=== PATIENT | male | born 1960 | race Caucasian/White ===

== ENCOUNTER 2018-09-09 23:05 | Inpatient (IN) | payer SELFPAY ==
[~2018-09-09] VITALS: Ht 180.3 cm; Wt 71.2 kg
[2018-09-09 23:30] LABS: BASO % 0 % (0-3); EOS % 0 % (0-3); HEMATOCRIT 22.7 % (39.0-53.0); HEMOGLOBIN 7.5 g/dL (13.0-17.5); LYMPH # 0.5 x10^3/uL (1.0-4.8); LYMPH % 5 % (24-48); MEAN CORPUSCULAR HEMOGLOBIN 29 pg (25-35); MEAN CORPUSCULAR HGB CONC 33 g/dL (31-37); MEAN CORPUSCULAR VOLUME 88 fL (79-100); MONO # 1.1 x10^3/uL (0.0-1.1); MONO % 12 % (0-9); NEUT % 83 % (31-73); PLATELET COUNT 115 x10^3/uL (140-400); RED BLOOD COUNT 2.59 x10^6/uL (4.30-5.70); RED CELL DISTRIBUTION WIDTH 17.8 % (11.5-14.5); WHITE BLOOD COUNT 9.6 x10^3/uL (4.0-11.0)
[2018-09-09 23:39] LABS: PROTHROMBIN TIME PATIENT 16.8 SEC (11.7-14.0)
[2018-09-09 23:43] LABS: CALCIUM 8.2 mg/dL (8.5-10.1); CREATININE 1.5 mg/dL (0.7-1.3); GFR 48.4; POTASSIUM 4.5 mmol/L (3.5-5.1)
[2018-09-09] MEDS ORDERED: CONTRAST GIVEN. MC PRN (23:45)
[2018-09-09 23:47] LABS: ALBUMIN 2.3 g/dL (3.4-5.0); ALBUMIN/GLOBULIN RATIO 0.5 (1.0-1.7); TOTAL BILIRUBIN 2.7 mg/dL (0.2-1.0); TOTAL PROTEIN 6.5 g/dL (6.4-8.2)
[2018-09-10] VITALS (22 sets, daily range): BP systolic 88–129; BP diastolic 57–85
[2018-09-10] MEDS ORDERED: PANTOPRAZOLE IV PUSH 40 MG VIAL. IVP ONE
[2018-09-10] MEDS ORDERED: OCTREOTIDE 500 MCG in IV NORMAL SALINE 100ML 100 ML IV PRN ×2
[2018-09-10] MEDS ORDERED: ONDANSETRON PF 4 MG/2 ML VIAL. IM ONE
[2018-09-10] MEDS ORDERED: MORPHINE SULFATE 4 MG/ML VIAL. IV ONE
[2018-09-10] MEDS ORDERED: ONDANSETRON PF 4 MG/2 ML VIAL. IV PRN ×2 (00:15→13:30)
[2018-09-10] MEDS ORDERED: FUROSEMIDE 20 MG/2 ML VIAL. IVP PRN (00:30)
[2018-09-10] MEDS ORDERED: IV NORMAL SALINE 1000ML BAG 1,000 ML IV ONE (00:30)
[2018-09-10] MEDS ORDERED: IOHEXOL 300 MG/ML 100ML VIAL. IV ONE (00:30)
--- NOTE | 2018-09-10 00:30 | PHYS DOC ---
Past Medical History Past Medical History: Gallstones, Hepatitis, Other Additional Past Medical Histor: Esophageal Varicies, Cirrohsis, Hep. C Past Surgical History: Appendectomy, Other Additional Past Surgical Histo: Left Knee, L4-L5 surgery, Paracentesis approx. every 3mo Alcohol Use: Sober Drug Use: None Adult General Chief Complaint Chief Complaint: ABDOMINAL PAIN HPI HPI Patient is a 58 year old male with history of cirrhosis, hepatitis C, ascites with esophageal varices who presents with upper GI bleed. Patient reports coffee-ground emesis multiple episodes throughout the day. Reports abdominal pain prior to and following vomiting episodes. Reports dizziness lightheadedness and shortness of breath. No chest pain. Reports black stools intermittent for the past 24-48 hours. Patient has prior history of soft jovial varices.. He receives his GI Care per Dr. Weston at [facility]. Patient arrives by EMS. Initial heart rate is 140s, with stable blood pressure. [] Review of Systems Review of Systems Review symptoms as per history of present illness. All other review symptoms are negative. All other systems were reviewed and found to be within normal limits, except as documented in this note. Current Medications Current Medications Current Medications Medications (Trade) Dose Ordered Sig/Sol Start Time Stop Time Status Last Admin Dose Admin Info (CONTRAST GIVEN -- Rx MONITORING) 1 each PRN DAILY PRN 09/09/18 23:45 09/11/18 23:44 Morphine Sulfate (Morphine Sulfate) 4 mg 1X ONCE 09/10/18 00:00 09/10/18 00:01 DC 09/09/18 23:53 4 MG Octreotide Acetate 500 mcg/ Sodium Chloride 101 ml @ 0 mls/hr CONT PRN 09/10/18 00:00 Ondansetron HCl (Zofran) 4 mg 1X ONCE 09/10/18 00:00 09/10/18 00:01 DC 09/09/18 23:53 4 MG Pantoprazole Sodium (PROTONIX VIAL for IV PUSH) 80 mg 1X ONCE 09/10/18 00:00 09/10/18 00:01 DC 09/09/18 23:53 80 MG Pantoprazole Sodium 80 mg/ Sodium Chloride 100 ml @ 10 mls/hr Q10H 09/10/18 00:00 09/11/18 00:00 Allergies Allergies Allergies Coded Allergies Type Severity Reaction Last Updated Verified No Known Drug Allergies 09/09/18 No Physical Exam Physical Exam Constitutional: Well developed, well nourished, no acute distress, non-toxic appearance. [] HENT: Normocephalic, atraumatic, bilateral external ears normal, oropharynx moist nose normal. [] Eyes: PERRLA, EOMI, conjunctiva normal, no discharge. [] Neck: Normal range of motion, no tenderness, supple, no stridor. [] Cardiovascular: Tachycardic, regular rhythm[] Lungs & Thorax: Bilateral breath sounds clear to auscultation [] Abdomen: Bowel sounds normal, ascites, mild diffuse epigastric pain, tenderness. [] Skin: Warm, dry, no erythema, no rash. [] Back: No tenderness, no CVA tenderness. [] Extremities: No tenderness peripheral edema. [] Neurologic: Alert and oriented X 3, normal motor function, normal sensory function, no focal deficits noted. [] Psychologic: Affect normal, judgement normal, mood normal. [] Current Patient Data Vital Signs Vital Signs Date Time Temp Pulse Resp B/P (MAP) Pulse Ox O2 Delivery O2 Flow Rate FiO2 09/09/18 23:45 129 112/77 (89) 98 Room Air 09/09/18 23:05 99.3 14 99.3 Lab Values Laboratory Tests Test 09/09/18 23:20 White Blood Count 9.6 x10^3/uL (4.0-11.0) Red Blood Count 2.59 x10^6/uL (4.30-5.70) L Hemoglobin 7.5 g/dL (13.0-17.5) L Hematocrit 22.7 % (39.0-53.0) L Mean Corpuscular Volume 88 fL (79-100) Mean Corpuscular Hemoglobin 29 pg (25-35) Mean Corpuscular Hemoglobin Concent 33 g/dL (31-37) Red Cell Distribution Width 17.8 % (11.5-14.5) H Platelet Count 115 x10^3/uL (140-400) L Neutrophils (%) (Auto) 83 % (31-73) H Lymphocytes (%) (Auto) 5 % (24-48) L Monocytes (%) (Auto) 12 % (0-9) H Eosinophils (%) (Auto) 0 % (0-3) Basophils (%) (Auto) 0 % (0-3) Neutrophils # (Auto) 8.0 x10^3uL (1.8-7.7) H Lymphocytes # (Auto) 0.5 x10^3/uL (1.0-4.8) L Monocytes # (Auto) 1.1 x10^3/uL (0.0-1.1) Eosinophils # (Auto) 0.0 x10^3/uL (0.0-0.7) Basophils # (Auto) 0.0 x10^3/uL (0.0-0.2) Prothrombin Time 16.8 SEC (11.7-14.0) H Prothrombin Time INR 1.4 (0.8-1.1) H PTT 32 SEC (24-38) Sodium Level 137 mmol/L (136-145) Potassium Level 4.5 mmol/L (3.5-5.1) Chloride Level 98 mmol/L (98-107) Carbon Dioxide Level 21 mmol/L (21-32) Anion Gap 18 (6-14) H Blood Urea Nitrogen 23 mg/dL (8-26) Creatinine 1.5 mg/dL (0.7-1.3) H Estimated GFR (Cockcroft-Gault) 48.4 BUN/Creatinine Ratio 15 (6-20) Glucose Level 123 mg/dL (70-99) H Calcium Level 8.2 mg/dL (8.5-10.1) L Total Bilirubin 2.7 mg/dL (0.2-1.0) H Aspartate Amino Transferase (AST) 48 U/L (15-37) H Alanine Aminotransferase (ALT) 18 U/L (16-63) Alkaline Phosphatase 74 U/L (46-116) Total Protein 6.5 g/dL (6.4-8.2) Albumin 2.3 g/dL (3.4-5.0) L Albumin/Globulin Ratio 0.5 (1.0-1.7) L Lipase 201 U/L (73-393) Ethyl Alcohol Level < 10 mg/dL (0-10) Laboratory Tests 09/09/18 23:20 Laboratory Tests 09/09/18 23:20 EKG EKG [EKG: His tach, rate 139, no acute ST-T wave changes, low voltage pattern and nonspecific T-wave abnormalities, QTC 440.] Radiology/Procedures Radiology/Procedures [CT abd/pelvis: pending] Course & Med Decision Making Course & Med Decision Making Pertinent Labs and Imaging studies reviewed. (See chart for details) [IV Protonix, simvastatin, pain medication and antiemetics ordered. Hemoglobin 7.5, platelets 1:15. Patient remains tachycardic. Type and cross with orders for transfusion of 2 packed units of red blood cells. Dr. Ambriz educational sign language interpreter for GI consulted. Recommendations are for ICU admission, nothing by mouth with anticipated endoscopy early tomorrow morning. notified of admission. Courtesy admission orders written] Dwayne Disclaimer Dragon Disclaimer This electronic medical record was generated, in whole or in part, using a voice recognition dictation system. Departure Departure Impression: Primary Impression: Upper GI bleed Disposition: ADMITTED INPATIENT Condition: CRITICAL Referrals: LUCILA MCCLURE JR, MD (PCP) UMU VARGAS DO September 10, 2018 00:30
[2018-09-10] MEDS: PANTOPRAZOLE SODIUM IV DRIP 80 MG in IV NORMAL SALINE 100ML 100 ML IV SCH ×2 (00:34→10:42)
[2018-09-10] MEDS: IV NORMAL SALINE 1000ML BAG 1,000 ML IV SCH ×2 (00:39→14:07)
[2018-09-10] MEDS: MORPHINE SULFATE 2 MG/ML VIAL. IV PRN ×9 (01:01→22:42)
--- NOTE | 2018-09-10 01:03 | RAD ---
PQRS Compliance Statement: One or more of the following individualized dose reduction techniques were utilized for this examination: 1. Automated exposure control 2. Adjustment of the mA and/or kV according to patient size 3. Use of iterative reconstruction technique CT ABD PELV W/ IV CONTRST ONLY Clinical Indication: Upper abdominal pain, nausea and vomiting. Comparison: None. Technique: Helical CT imaging of the abdomen and pelvis is performed after 60 cc of Omnipaque 300 IV contrast. Oral contrast not given. Findings: Calcified granuloma right middle lobe. There is atelectasis in the right lower lobe. There is coronary artery disease. Cardiac size normal. Cirrhosis. Recanalized paraumbilical vein. Portal vein is patent. Spleen size is normal. There are 2 upper limits of normal size dionne hepatis lymph nodes, coronal image 27. Lymph nodes may be secondary to liver disease. Cholelithiasis. Pancreas, abdominal aorta caliber, adrenal glands, and kidneys are normal. Atherosclerotic calcification of the infrarenal abdominal aorta. There is mild diffuse gastric wall thickening. Stomach mildly distended with fluid. There is dependent hyperdensity in the gastric fundus, correlate to recent ingestions. There is wall thickening of the gastric fundus and proximal duodenum. There is no perforation. There is moderate abdominal and pelvic ascites. No dilated small bowel. There is mild wall thickening of segments of small bowel. Distal colon is not well distended, limiting evaluation. Cannot exclude mild wall thickening of the transverse and descending colon. Appendix not seen, no secondary signs of appendicitis. Urinary bladder is not well distended, limiting evaluation. Coarse calcification in the prostate.Vasectomy clips. Mild compression deformity superior endplate of T6 does not appear acute. Schmorl's node superior endplates of L4 and T11. IMPRESSION: 1. Wall thickening of the gastric fundus and proximal duodenum. There is mild diffuse gastric wall thickening. Mild wall thickening of segments of small bowel. Findings suggest nonspecific gastroenteritis. 2. Mild wall thickening of the transverse and descending colon suggestive of nonspecific colitis, probably infectious or inflammatory bowel disease. 3. Moderate abdominal and pelvic ascites. 4. Cirrhosis. 5. Cholelithiasis. Electronically signed by: Leonel Monet MD (09/10/2018 1:00 AM) [id number]
[2018-09-10] MEDS ORDERED: METOCLOPRAMIDE HCL 10 MG/2 ML VIAL. IV STA (07:02)
[2018-09-10 07:05] LABS: BILIRUBIN,URINE SMALL (NEG); CLARITY,URINE CLEAR; COLOR,URINE ORANGE; NITRITE,URINE NEGATIVE (NEG); PH,URINE 5.5; PROTEIN,URINE NEGATIVE (NEG-TRACE)
[2018-09-10 07:18] LABS: BACTERIA,URINE 0 /HPF (0-FEW); RBC,URINE 0 /HPF (0-2); SQUAMOUS EPITHELIAL CELL,UR FEW /LPF; WBC,URINE OCC /HPF (0-4)
[2018-09-10] MEDS ORDERED: IV RINGERS,LACTATED 1000ML 1,000 ML IV SCH (09:00)
[2018-09-10] MEDS ORDERED: PROPOFOL 20 ML IV ONE (09:39)
[2018-09-10 10:01] LABS: CALCIUM 7.5 mg/dL (8.5-10.1); CREATININE 1.2 mg/dL (0.7-1.3); GFR 62.6; POTASSIUM 4.8 mmol/L (3.5-5.1)
--- NOTE | 2018-09-10 10:01 | PDOC2 ---
CONSULT Date of Consult Date of Consult DATE: 09/10/18 TIME: 09:56 Reason for Consult Reason for Consult: coffee ground emesis, cirrhosis History of Present Illness Reason for Visit: This is a 58-year-old male with a history of cirrhosis secondary to long- standing alcohol abuse and hepatitis C. He relates his last alcohol ingestion was May 2017. He is primarily managed at [facility] and has a history of portal hypertension with ascites and several episodes in the past of coffee-ground emesis. Previous endoscopies according to the patient revealed nonbleeding small varices and gastritis. He has been managed with Protonix and Carafate. His chronic ascites is managed with diuretics and intermittent paracentesis. He relates his last paracentesis was June. He has chronic abdominal discomfort and early satiety which have not changed. He presents now with a complaint of nausea followed by coffee-ground emesis and even some red blood. His abdominal discomfort and early satiety have not changed. He denies chronic melena but did have 1 melenic stool daily. His peripheral edema has been managed with diuretics and his abdominal distention is stable per his history. He states that he has seen the liver clinic at [facility] and is awaiting insurance before considering liver transplant and treatment of his hepatitis C Past Medical History Hepatobiliary: Cirrhosis, Hep A/B/C (hepatitis C) Social History ALCOHOL: other (samueloir alcohol abuse- stopped last year) Current Medications Current Medications Current Medications Ondansetron HCl (Zofran) 4 mg 1X ONCE IM Last administered on 09/09/18at 23:53; Start 09/10/18 at 00:00; Stop 09/10/18 at 00:01; Status DC Octreotide Acetate 500 mcg/ Sodium Chloride 101 ml @ 0 mls/hr CONT PRN IV SEE I/O RECORD Last administered on 09/10/18at 00:38; Start 09/10/18 at 00:00 Morphine Sulfate (Morphine Sulfate) 4 mg 1X ONCE IV Last administered on 09/09/18at 23:53; Start 09/10/18 at 00:00; Stop 09/10/18 at 00:01; Status DC Pantoprazole Sodium 80 mg/ Sodium Chloride 100 ml @ 10 mls/hr Q10H IV Last administered on 09/10/18at 00:34; Start 09/10/18 at 00:00; Stop 09/11/18 at 00:00 Pantoprazole Sodium (PROTONIX VIAL for IV PUSH) 80 mg 1X ONCE IVP Last administered on 09/09/18at 23:53; Start 09/10/18 at 00:00; Stop 09/10/18 at 00:01; Status DC Iohexol (Omnipaque 300 Mg/ml) 60 ml 1X ONCE IV Last administered on 09/10/18at 00:20; Start 09/10/18 at 00:30; Stop 09/10/18 at 00:31; Status DC Info (CONTRAST GIVEN -- Rx MONITORING) 1 each PRN DAILY PRN MC SEE COMMENTS; Start 09/09/18 at 23:45; Stop 09/11/18 at 23:44 Ondansetron HCl (Zofran) 4 mg PRN Q8HRS PRN IV NAUSEA/VOMITING 1ST CHOICE Last administered on 09/10/18at 08:03; Start 09/10/18 at 00:15; Stop 09/11/18 at 00:14 Morphine Sulfate (Morphine Sulfate) 2 mg PRN Q2HR PRN IV SEVERE PAIN Last administered on 09/10/18at 08:04; Start 09/10/18 at 00:15; Stop 09/11/18 at 00:14 Sodium Chloride 1,000 ml @ 75 mls/hr [id number] IV Last administered on 09/10/18at 00:39; Start 09/10/18 at 00:13; Stop 09/11/18 at 00:12 Furosemide (Lasix) 20 mg 1X PRN PRN IVP AFTER BLOOD Last administered on 09/10/18at 06:08; Start 09/10/18 at 00:30; Stop 09/11/18 at 00:29 Sodium Chloride 1,000 ml @ 1,000 mls/hr 1X ONCE IV Last administered on 09/09/18at 23:58; Start 09/10/18 at 00:30; Stop 09/10/18 at 01:29; Status DC Metoclopramide HCl (Reglan Vial) 10 mg 1X STAT IV Last administered on 09/10/18at 08:03; Start 09/10/18 at 07:02; Stop 09/10/18 at 07:11; Status DC Ringer's Solution 1,000 ml @ 50 mls/hr Q20H IV ; Start 09/10/18 at 09:00; Stop 09/10/18 at 19:00 Propofol 60 ml @ As Directed STK-MED ONCE IV ; Start 09/10/18 at 09:39; Stop 09/10/18 at 09:40; Status DC Allergies Allergies: Coded Allergies: No Known Drug Allergies (Unverified , 09/10/18) ROS Gastrointestinal: Yes Nausea, Yes Vomiting, Yes Abdominal Pain Physical Exam General: Alert, Oriented X3, Cooperative HEENT: PERRLA Lungs: Clear to auscultation Heart: Regular rate, Normal S1, Normal S2 Abdomen: Normal bowel sounds, Other (moderate distension with ascites; also mild diffuse tenderness) Vitals VITALS Vital Signs Date Time Temp Pulse Resp B/P (MAP) Pulse Ox O2 Delivery O2 Flow Rate FiO2 09/10/18 09:53 Room Air 09/10/18 09:00 88 18 110/77 (88) 09/10/18 08:44 98 09/10/18 07:00 98.7 98.7 Labs Labs Laboratory Tests Test 09/09/18 23:20 09/10/18 06:30 White Blood Count 9.6 x10^3/uL (4.0-11.0) Red Blood Count 2.59 x10^6/uL (4.30-5.70) Hemoglobin 7.5 g/dL (13.0-17.5) Hematocrit 22.7 % (39.0-53.0) Mean Corpuscular Volume 88 fL (79-100) Mean Corpuscular Hemoglobin 29 pg (25-35) Mean Corpuscular Hemoglobin Concent 33 g/dL (31-37) Red Cell Distribution Width 17.8 % (11.5-14.5) Platelet Count 115 x10^3/uL (140-400) Neutrophils (%) (Auto) 83 % (31-73) Lymphocytes (%) (Auto) 5 % (24-48) Monocytes (%) (Auto) 12 % (0-9) Eosinophils (%) (Auto) 0 % (0-3) Basophils (%) (Auto) 0 % (0-3) Neutrophils # (Auto) 8.0 x10^3uL (1.8-7.7) Lymphocytes # (Auto) 0.5 x10^3/uL (1.0-4.8) Monocytes # (Auto) 1.1 x10^3/uL (0.0-1.1) Eosinophils # (Auto) 0.0 x10^3/uL (0.0-0.7) Basophils # (Auto) 0.0 x10^3/uL (0.0-0.2) Prothrombin Time 16.8 SEC (11.7-14.0) Prothromb Time International Ratio 1.4 (0.8-1.1) Activated Partial Thromboplast Time 32 SEC (24-38) Sodium Level 137 mmol/L (136-145) Potassium Level 4.5 mmol/L (3.5-5.1) Chloride Level 98 mmol/L (98-107) Carbon Dioxide Level 21 mmol/L (21-32) Anion Gap 18 (6-14) Blood Urea Nitrogen 23 mg/dL (8-26) Creatinine 1.5 mg/dL (0.7-1.3) Estimated GFR (Cockcroft-Gault) 48.4 BUN/Creatinine Ratio 15 (6-20) Glucose Level 123 mg/dL (70-99) Calcium Level 8.2 mg/dL (8.5-10.1) Total Bilirubin 2.7 mg/dL (0.2-1.0) Aspartate Amino Transf (AST/SGOT) 48 U/L (15-37) Alanine Aminotransferase (ALT/SGPT) 18 U/L (16-63) Alkaline Phosphatase 74 U/L (46-116) Total Protein 6.5 g/dL (6.4-8.2) Albumin 2.3 g/dL (3.4-5.0) Albumin/Globulin Ratio 0.5 (1.0-1.7) Lipase 201 U/L (73-393) Ethyl Alcohol Level < 10 mg/dL (0-10) Urine Collection Type Void Urine Color [place] Urine Clarity Clear Urine pH 5.5 Urine Specific [place] >=1.030 Urine Protein Negative mg/dL (NEG-TRACE) Urine Glucose (UA) Negative mg/dL (NEG) Urine Ketones (Stick) Trace mg/dL (NEG) Urine Blood Negative (NEG) Urine Nitrite Negative (NEG) Urine Bilirubin Small (NEG) Urine Urobilinogen Dipstick 1.0 mg/dL (0.2 mg/dL) Urine Leukocyte Esterase Negative (NEG) Urine RBC 0 /HPF (0-2) Urine WBC Occ /HPF (0-4) Urine Squamous Epithelial Cells Few /LPF Urine Bacteria 0 /HPF (0-FEW) Laboratory Tests Test 09/09/18 23:20 09/10/18 06:30 White Blood Count 9.6 x10^3/uL (4.0-11.0) Red Blood Count 2.59 x10^6/uL (4.30-5.70) Hemoglobin 7.5 g/dL (13.0-17.5) Hematocrit 22.7 % (39.0-53.0) Mean Corpuscular Volume 88 fL (79-100) Mean Corpuscular Hemoglobin 29 pg (25-35) Mean Corpuscular Hemoglobin Concent 33 g/dL (31-37) Red Cell Distribution Width 17.8 % (11.5-14.5) Platelet Count 115 x10^3/uL (140-400) Neutrophils (%) (Auto) 83 % (31-73) Lymphocytes (%) (Auto) 5 % (24-48) Monocytes (%) (Auto) 12 % (0-9) Eosinophils (%) (Auto) 0 % (0-3) Basophils (%) (Auto) 0 % (0-3) Neutrophils # (Auto) 8.0 x10^3uL (1.8-7.7) Lymphocytes # (Auto) 0.5 x10^3/uL (1.0-4.8) Monocytes # (Auto) 1.1 x10^3/uL (0.0-1.1) Eosinophils # (Auto) 0.0 x10^3/uL (0.0-0.7) Basophils # (Auto) 0.0 x10^3/uL (0.0-0.2) Prothrombin Time 16.8 SEC (11.7-14.0) Prothromb Time International Ratio 1.4 (0.8-1.1) Activated Partial Thromboplast Time 32 SEC (24-38) Sodium Level 137 mmol/L (136-145) Potassium Level 4.5 mmol/L (3.5-5.1) Chloride Level 98 mmol/L (98-107) Carbon Dioxide Level 21 mmol/L (21-32) Anion Gap 18 (6-14) Blood Urea Nitrogen 23 mg/dL (8-26) Creatinine 1.5 mg/dL (0.7-1.3) Estimated GFR (Cockcroft-Gault) 48.4 BUN/Creatinine Ratio 15 (6-20) Glucose Level 123 mg/dL (70-99) Calcium Level 8.2 mg/dL (8.5-10.1) Total Bilirubin 2.7 mg/dL (0.2-1.0) Aspartate Amino Transf (AST/SGOT) 48 U/L (15-37) Alanine Aminotransferase (ALT/SGPT) 18 U/L (16-63) Alkaline Phosphatase 74 U/L (46-116) Total Protein 6.5 g/dL (6.4-8.2) Albumin 2.3 g/dL (3.4-5.0) Albumin/Globulin Ratio 0.5 (1.0-1.7) Lipase 201 U/L (73-393) Ethyl Alcohol Level < 10 mg/dL (0-10) Urine Collection Type Void Urine Color [place] Urine Clarity Clear Urine pH 5.5 Urine Specific [place] >=1.030 Urine Protein Negative mg/dL (NEG-TRACE) Urine Glucose (UA) Negative mg/dL (NEG) Urine Ketones (Stick) Trace mg/dL (NEG) Urine Blood Negative (NEG) Urine Nitrite Negative (NEG) Urine Bilirubin Small (NEG) Urine Urobilinogen Dipstick 1.0 mg/dL (0.2 mg/dL) Urine Leukocyte Esterase Negative (NEG) Urine RBC 0 /HPF (0-2) Urine WBC Occ /HPF (0-4) Urine Squamous Epithelial Cells Few /LPF Urine Bacteria 0 /HPF (0-FEW) Images Images CT IMPRESSION: 1. Wall thickening of the gastric fundus and proximal duodenum. There is mild diffuse gastric wall thickening. Mild wall thickening of segments of small bowel. Findings suggest nonspecific gastroenteritis. 2. Mild wall thickening of the transverse and descending colon suggestive of nonspecific colitis, probably infectious or inflammatory bowel disease. 3. Moderate abdominal and pelvic ascites. 4. Cirrhosis. 5. Cholelithiasis. Assessment/Plan Assessment/Plan Vomiting and coffee-ground emesis. Prior history of cirrhosis with reportedly small nonbleeding varices but chronic gastritis noted. Presents now with coffee- ground emesis and some red blood and a blood loss related anemia. Cirrhosis secondary to chronic alcohol abuse and hepatitis C. He relates seeing liver clinic and is awaiting insurance before treating hepatitis C and c onsidering liver transplant ascites- moderate on CT but clinically stable Plan #1 empirically continue IV Protonix and octreotide. Transfuse to hemoglobin greater than 8 Urgent EGD today to evaluate source for bleeding. Recommend early return to his primary physicians and the liver clinic to discuss ongoing treatment ZAHRA SANDERS MD September 10, 2018 10:01
[2018-09-10 10:03] LABS: BASO % 0 % (0-3); EOS % 0 % (0-3); HEMATOCRIT 25.2 % (39.0-53.0); HEMOGLOBIN 8.3 g/dL (13.0-17.5); LYMPH # 0.6 x10^3/uL (1.0-4.8); LYMPH % 11 % (24-48); MEAN CORPUSCULAR HEMOGLOBIN 29 pg (25-35); MEAN CORPUSCULAR HGB CONC 33 g/dL (31-37); MEAN CORPUSCULAR VOLUME 88 fL (79-100); MONO # 0.9 x10^3/uL (0.0-1.1); MONO % 16 % (0-9); NEUT # 4.1 x10^3uL (1.8-7.7); NEUT % 73 % (31-73); PLATELET COUNT 53 x10^3/uL (140-400); RED BLOOD COUNT 2.88 x10^6/uL (4.30-5.70); RED CELL DISTRIBUTION WIDTH 17.9 % (11.5-14.5); WHITE BLOOD COUNT 5.7 x10^3/uL (4.0-11.0)
--- NOTE | 2018-09-10 10:04 | PDOC4 ---
PROCEDURE Procedure EGD for hematemesis Anesthesia- propofol Findings- grade 1-2 NON bleeding distal esophageal varices; portal gastropathy without bleeding- mild NO varices- gastric ulcers in pre-pyloric region- no bl eeding but some old melena in stomach; duodenum- inflammation but no ulcers or varices Plan- PPI and carafate stop octreotide f/u with PCP and liver clinic ZAHRA SANDERS MD September 10, 2018 10:04
[2018-09-10] MEDS: SUCRALFATE 1 GM TABLET. PO SCH ×2 (10:37→22:42)
--- NOTE | 2018-09-10 13:15 | PDOC1 ---
History and Physical Date of Admission: Date of Admission DATE: 09/10/18 TIME: 13:12 Chief Complaint: Problems: (1) Gastritis (2) Upper GI bleed Chief Complain: Hematemesis History of Present Illness: HPI: This is a elderly male who used to drink heavily He has known cirrhosis and actually his INR is even higher at 1.4 Presented last night with GI bleeding with hematemesis He was taken for emergent EGD which showed distal esophageal varices that were not actively bleeding He is now in the ICU where he is being examined Rates his symptoms at 10 out of 10 although the bleeding has now stopped He tried taking home meds but I didn't help Describes as agonizing Worse with eating Past Medical/Surgical History: PMH/PSH: Previous GI bleeds Prior alcoholism although he apparently has quit drinking Cirrhosis Coagulopathy Hypertension Noncompliance Allergies: Allergies: Coded Allergies: No Known Drug Allergies (Unverified , 09/10/18) Family History: Family History: Alcoholism Social History: Social Hisoty: He quit drinking but used to drink heavily 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 Current Medications: Current Medications Current Medications Ondansetron HCl (Zofran) 4 mg 1X ONCE IM Last administered on 09/09/18at 23:53; Start 09/10/18 at 00:00; Stop 09/10/18 at 00:01; Status DC Octreotide Acetate 500 mcg/ Sodium Chloride 101 ml @ 0 mls/hr CONT PRN IV SEE I/O RECORD Last administered on 09/10/18at 00:38; Start 09/10/18 at 00:00; Stop 09/10/18 at 10:06; Status DC Morphine Sulfate (Morphine Sulfate) 4 mg 1X ONCE IV Last administered on 09/09/18at 23:53; Start 09/10/18 at 00:00; Stop 09/10/18 at 00:01; Status DC Pantoprazole Sodium 80 mg/ Sodium Chloride 100 ml @ 10 mls/hr Q10H IV Last administered on 09/10/18at 10:42; Start 09/10/18 at 00:00; Stop 09/11/18 at 00:00 Pantoprazole Sodium (PROTONIX VIAL for IV PUSH) 80 mg 1X ONCE IVP Last administered on 09/09/18at 23:53; Start 09/10/18 at 00:00; Stop 09/10/18 at 00:01; Status DC Iohexol (Omnipaque 300 Mg/ml) 60 ml 1X ONCE IV Last administered on 09/10/18at 00:20; Start 09/10/18 at 00:30; Stop 09/10/18 at 00:31; Status DC Info (CONTRAST GIVEN -- Rx MONITORING) 1 each PRN DAILY PRN MC SEE COMMENTS; Start 09/09/18 at 23:45; Stop 09/11/18 at 23:44 Ondansetron HCl (Zofran) 4 mg PRN Q8HRS PRN IV NAUSEA/VOMITING 1ST CHOICE Last administered on 09/10/18at 08:03; Start 09/10/18 at 00:15; Stop 09/11/18 at 00:14 Morphine Sulfate (Morphine Sulfate) 2 mg PRN Q2HR PRN IV SEVERE PAIN Last administered on 09/10/18at 10:37; Start 09/10/18 at 00:15; Stop 09/11/18 at 00:14 Sodium Chloride 1,000 ml @ 75 mls/hr [id number] IV Last administered on 09/10/18at 00:39; Start 09/10/18 at 00:13; Stop 09/11/18 at 00:12 Furosemide (Lasix) 20 mg 1X PRN PRN IVP AFTER BLOOD Last administered on 09/10/18at 06:08; Start 09/10/18 at 00:30; Stop 09/11/18 at 00:29 Sodium Chloride 1,000 ml @ 1,000 mls/hr 1X ONCE IV Last administered on 09/09/18at 23:58; Start 09/10/18 at 00:30; Stop 09/10/18 at 01:29; Status DC Metoclopramide HCl (Reglan Vial) 10 mg 1X STAT IV Last administered on 09/10/18at 08:03; Start 09/10/18 at 07:02; Stop 09/10/18 at 07:11; Status DC Ringer's Solution 1,000 ml @ 50 mls/hr Q20H IV Last administered on 09/10/18at 09:56; Start 09/10/18 at 09:00; Stop 09/10/18 at 19:00 Propofol 20 ml @ As Directed STK-MED ONCE IV ; Start 09/10/18 at 09:39; Stop 09/10/18 at 09:40; Status DC Sucralfate (Carafate) 1 gm BID@1000,2200 PO Last administered on 09/10/18at 10:37; Start 09/10/18 at 10:30 ROS: Review of Systems Review of System REVIEW OF SYSTEMS: GENERAL: Denies weakness SKIN: No bruising, hair changes or rashes. EYES: No blurred, double or loss of vision. NOSE AND THROAT: No history of nosebleeds, hoarseness or sore throat. HEART: No history of palpitations, chest pain or shortness of breath on exertion. LUNGS: Denies cough, hemoptysis, wheezing or shortness of breath. GASTROINTESTINAL: Denies changes in appetite, nausea, vomiting, diarrhea or constipation. GENITOURINARY: No history of frequency, urgency, hesitancy or nocturia. NEUROLOGIC: Denies history of numbness, tingling, tremor or weakness. PSYCHIATRIC: No history of panic, anxiety or depression. ENDOCRINE: No history of heat or cold intolerance, polyuria or polydipsia. EXTREMITIES: Denies muscle weakness, joint pain, pain on walking or stiffness. Physical Exam: Vital Signs: Vital Signs Date Time Temp Pulse Resp B/P (MAP) Pulse Ox O2 Delivery O2 Flow Rate FiO2 09/10/18 11:28 18 96 Room Air 2.0 09/10/18 11:00 98.3 92 116/79 (91) 98.3 Physcial Exam: GEN.: No apparent distress. Alert and oriented. HEENT: Head is normocephalic, atraumatic NECK: Supple, no JVD LUNGS: Clear to auscultation without rhonchi or wheezing HEART: RRR, S1, S2 present. Peripheral pulses intact ABDOMEN: Soft, nontender. Positive bowel sounds no organomegaly EXTREMITIES: Without any cyanosis, clubbing, or edema. Pedal pulses intact NEUROLOGIC: Normal speech, normal tone. A&O x 3 PSYCHIATRIC: Normal affect, normal mood. Stable SKIN: No ulcerations or rashes VASCULAR: Good capillary refill Labs: Labs: Laboratory Tests Test 09/09/18 23:20 09/10/18 06:30 09/10/18 09:45 White Blood Count 9.6 x10^3/uL (4.0-11.0) 5.7 x10^3/uL (4.0-11.0) Red Blood Count 2.59 x10^6/uL (4.30-5.70) 2.88 x10^6/uL (4.30-5.70) Hemoglobin 7.5 g/dL (13.0-17.5) 8.3 g/dL (13.0-17.5) Hematocrit 22.7 % (39.0-53.0) 25.2 % (39.0-53.0) Mean Corpuscular Volume 88 fL (79-100) 88 fL (79-100) Mean Corpuscular Hemoglobin 29 pg (25-35) 29 pg (25-35) Mean Corpuscular Hemoglobin Concent 33 g/dL (31-37) 33 g/dL (31-37) Red Cell Distribution Width 17.8 % (11.5-14.5) 17.9 % (11.5-14.5) Platelet Count 115 x10^3/uL (140-400) 53 x10^3/uL (140-400) Neutrophils (%) (Auto) 83 % (31-73) 73 % (31-73) Lymphocytes (%) (Auto) 5 % (24-48) 11 % (24-48) Monocytes (%) (Auto) 12 % (0-9) 16 % (0-9) Eosinophils (%) (Auto) 0 % (0-3) 0 % (0-3) Basophils (%) (Auto) 0 % (0-3) 0 % (0-3) Neutrophils # (Auto) 8.0 x10^3uL (1.8-7.7) 4.1 x10^3uL (1.8-7.7) Lymphocytes # (Auto) 0.5 x10^3/uL (1.0-4.8) 0.6 x10^3/uL (1.0-4.8) Monocytes # (Auto) 1.1 x10^3/uL (0.0-1.1) 0.9 x10^3/uL (0.0-1.1) Eosinophils # (Auto) 0.0 x10^3/uL (0.0-0.7) 0.0 x10^3/uL (0.0-0.7) Basophils # (Auto) 0.0 x10^3/uL (0.0-0.2) 0.0 x10^3/uL (0.0-0.2) Prothrombin Time 16.8 SEC (11.7-14.0) Prothromb Time International Ratio 1.4 (0.8-1.1) Activated Partial Thromboplast Time 32 SEC (24-38) Sodium Level 137 mmol/L (136-145) 137 mmol/L (136-145) Potassium Level 4.5 mmol/L (3.5-5.1) 4.8 mmol/L (3.5-5.1) Chloride Level 98 mmol/L (98-107) 102 mmol/L (98-107) Carbon Dioxide Level 21 mmol/L (21-32) 26 mmol/L (21-32) Anion Gap 18 (6-14) 9 (6-14) Blood Urea Nitrogen 23 mg/dL (8-26) 29 mg/dL (8-26) Creatinine 1.5 mg/dL (0.7-1.3) 1.2 mg/dL (0.7-1.3) Estimated GFR (Cockcroft-Gault) 48.4 62.6 BUN/Creatinine Ratio 15 (6-20) Glucose Level 123 mg/dL (70-99) 125 mg/dL (70-99) Calcium Level 8.2 mg/dL (8.5-10.1) 7.5 mg/dL (8.5-10.1) Total Bilirubin 2.7 mg/dL (0.2-1.0) Aspartate Amino Transf (AST/SGOT) 48 U/L (15-37) Alanine Aminotransferase (ALT/SGPT) 18 U/L (16-63) Alkaline Phosphatase 74 U/L (46-116) Total Protein 6.5 g/dL (6.4-8.2) Albumin 2.3 g/dL (3.4-5.0) Albumin/Globulin Ratio 0.5 (1.0-1.7) Lipase 201 U/L (73-393) Ethyl Alcohol Level < 10 mg/dL (0-10) Urine Collection Type Void Urine Color Crane Urine Clarity Clear Urine pH 5.5 Urine Specific [place] >=1.030 Urine Protein Negative mg/dL (NEG-TRACE) Urine Glucose (UA) Negative mg/dL (NEG) Urine Ketones (Stick) Trace mg/dL (NEG) Urine Blood Negative (NEG) Urine Nitrite Negative (NEG) Urine Bilirubin Small (NEG) Urine Urobilinogen Dipstick 1.0 mg/dL (0.2 mg/dL) Urine Leukocyte Esterase Negative (NEG) Urine RBC 0 /HPF (0-2) Urine WBC Occ /HPF (0-4) Urine Squamous Epithelial Cells Few /LPF Urine Bacteria 0 /HPF (0-FEW) Laboratory Tests Test 09/09/18 23:20 09/10/18 06:30 09/10/18 09:45 White Blood Count 9.6 x10^3/uL (4.0-11.0) 5.7 x10^3/uL (4.0-11.0) Red Blood Count 2.59 x10^6/uL (4.30-5.70) 2.88 x10^6/uL (4.30-5.70) Hemoglobin 7.5 g/dL (13.0-17.5) 8.3 g/dL (13.0-17.5) Hematocrit 22.7 % (39.0-53.0) 25.2 % (39.0-53.0) Mean Corpuscular Volume 88 fL (79-100) 88 fL (79-100) Mean Corpuscular Hemoglobin 29 pg (25-35) 29 pg (25-35) Mean Corpuscular Hemoglobin Concent 33 g/dL (31-37) 33 g/dL (31-37) Red Cell Distribution Width 17.8 % (11.5-14.5) 17.9 % (11.5-14.5) Platelet Count 115 x10^3/uL (140-400) 53 x10^3/uL (140-400) Neutrophils (%) (Auto) 83 % (31-73) 73 % (31-73) Lymphocytes (%) (Auto) 5 % (24-48) 11 % (24-48) Monocytes (%) (Auto) 12 % (0-9) 16 % (0-9) Eosinophils (%) (Auto) 0 % (0-3) 0 % (0-3) Basophils (%) (Auto) 0 % (0-3) 0 % (0-3) Neutrophils # (Auto) 8.0 x10^3uL (1.8-7.7) 4.1 x10^3uL (1.8-7.7) Lymphocytes # (Auto) 0.5 x10^3/uL (1.0-4.8) 0.6 x10^3/uL (1.0-4.8) Monocytes # (Auto) 1.1 x10^3/uL (0.0-1.1) 0.9 x10^3/uL (0.0-1.1) Eosinophils # (Auto) 0.0 x10^3/uL (0.0-0.7) 0.0 x10^3/uL (0.0-0.7) Basophils # (Auto) 0.0 x10^3/uL (0.0-0.2) 0.0 x10^3/uL (0.0-0.2) Prothrombin Time 16.8 SEC (11.7-14.0) Prothromb Time International Ratio 1.4 (0.8-1.1) Activated Partial Thromboplast Time 32 SEC (24-38) Sodium Level 137 mmol/L (136-145) 137 mmol/L (136-145) Potassium Level 4.5 mmol/L (3.5-5.1) 4.8 mmol/L (3.5-5.1) Chloride Level 98 mmol/L (98-107) 102 mmol/L (98-107) Carbon Dioxide Level 21 mmol/L (21-32) 26 mmol/L (21-32) Anion Gap 18 (6-14) 9 (6-14) Blood Urea Nitrogen 23 mg/dL (8-26) 29 mg/dL (8-26) Creatinine 1.5 mg/dL (0.7-1.3) 1.2 mg/dL (0.7-1.3) Estimated GFR (Cockcroft-Gault) 48.4 62.6 BUN/Creatinine Ratio 15 (6-20) Glucose Level 123 mg/dL (70-99) 125 mg/dL (70-99) Calcium Level 8.2 mg/dL (8.5-10.1) 7.5 mg/dL (8.5-10.1) Total Bilirubin 2.7 mg/dL (0.2-1.0) Aspartate Amino Transf (AST/SGOT) 48 U/L (15-37) Alanine Aminotransferase (ALT/SGPT) 18 U/L (16-63) Alkaline Phosphatase 74 U/L (46-116) Total Protein 6.5 g/dL (6.4-8.2) Albumin 2.3 g/dL (3.4-5.0) Albumin/Globulin Ratio 0.5 (1.0-1.7) Lipase 201 U/L (73-393) Ethyl Alcohol Level < 10 mg/dL (0-10) Urine Collection Type Void Urine Color Crane Urine Clarity Clear Urine pH 5.5 Urine Specific [place] >=1.030 Urine Protein Negative mg/dL (NEG-TRACE) Urine Glucose (UA) Negative mg/dL (NEG) Urine Ketones (Stick) Trace mg/dL (NEG) Urine Blood Negative (NEG) Urine Nitrite Negative (NEG) Urine Bilirubin Small (NEG) Urine Urobilinogen Dipstick 1.0 mg/dL (0.2 mg/dL) Urine Leukocyte Esterase Negative (NEG) Urine RBC 0 /HPF (0-2) Urine WBC Occ /HPF (0-4) Urine Squamous Epithelial Cells Few /LPF Urine Bacteria 0 /HPF (0-FEW) Images: Images Findings- grade 1-2 NON bleeding distal esophageal varices; portal gastropathy without bleeding- mild NO varices- gastric ulcers in pre-pyloric region- no bleeding but some old melena in stomach; duodenum- inflammation but no ulcers or varices Assessment/Plan Assessment/Plan GI bleed secondary to esophageal varices secondary to cirrhosis and coagulopathy secondary to alcoholism Plan ICU monitoring Frequent hemoglobin levels IV Protonix DVT prophylaxis Home meds Appreciate GIs rapid intervention Long-term prognosis guarded Total time 31 minutes ISIDRA JEFFREY III DO September 10, 2018 13:15
[2018-09-11] MEDS: MORPHINE SULFATE 2 MG/ML VIAL. IV PRN ×2 (01:05→08:23)
[2018-09-11 03:00] VITALS: BP 113/74
[2018-09-11 04:58] LABS: BASO % 0 % (0-3); EOS % 1 % (0-3); HEMATOCRIT 23.6 % (39.0-53.0); HEMOGLOBIN 7.8 g/dL (13.0-17.5); LYMPH # 0.6 x10^3/uL (1.0-4.8); LYMPH % 14 % (24-48); MEAN CORPUSCULAR HEMOGLOBIN 29 pg (25-35); MEAN CORPUSCULAR HGB CONC 33 g/dL (31-37); MEAN CORPUSCULAR VOLUME 88 fL (79-100); MONO # 0.5 x10^3/uL (0.0-1.1); MONO % 10 % (0-9); NEUT # 3.3 x10^3uL (1.8-7.7); NEUT % 74 % (31-73); PLATELET COUNT 57 x10^3/uL (140-400); RED BLOOD COUNT 2.69 x10^6/uL (4.30-5.70); RED CELL DISTRIBUTION WIDTH 18.1 % (11.5-14.5); WHITE BLOOD COUNT 4.4 x10^3/uL (4.0-11.0)
[2018-09-11 05:34] LABS: ALBUMIN 2.2 g/dL (3.4-5.0); ALBUMIN/GLOBULIN RATIO 0.6 (1.0-1.7); CALCIUM 7.6 mg/dL (8.5-10.1); CREATININE 1.1 mg/dL (0.7-1.3); GFR 69.2; POTASSIUM 3.9 mmol/L (3.5-5.1); TOTAL BILIRUBIN 1.4 mg/dL (0.2-1.0); TOTAL PROTEIN 5.7 g/dL (6.4-8.2)
--- NOTE | 2018-09-11 06:35 | EKG ---
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
[2018-09-11 07:00] VITALS: BP 115/74
[2018-09-11] MEDS ORDERED: PANTOPRAZOLE 40 MG TABLET.DR. PO SCH (07:30)
--- NOTE | 2018-09-11 07:39 | PDOC ---
GI PROGRESS NOTES Date Date/Time DATE: 09/11/18 TIME: 07:36 Subjective Subjective Slept Well, tolerated diet- no further emesis or bleeding Objective Vitals Vital Signs Date Time Temp Pulse Resp B/P (MAP) Pulse Ox O2 Delivery O2 Flow Rate FiO2 09/11/18 03:00 98.3 92 18 113/74 (87) 95 Room Air 98.3 09/11/18 01:35 20 Room Air 09/11/18 01:05 20 94 Room Air 09/10/18 23:00 98.3 92 18 110/78 (89) 94 Room Air 98.3 09/10/18 22:42 20 Room Air 09/10/18 19:44 Room Air 09/10/18 19:37 20 Room Air 09/10/18 19:00 98.3 90 18 122/72 (89) 94 Room Air 98.3 09/10/18 17:16 95 2.0 09/10/18 16:46 Room Air 09/10/18 15:29 Room Air 09/10/18 15:00 98.2 91 18 113/84 (94) 95 Room Air 98.2 09/10/18 14:07 18 96 Room Air 2.0 09/10/18 11:28 18 96 Room Air 2.0 09/10/18 11:00 98.3 92 18 116/79 (91) 96 Room Air 98.3 09/10/18 10:37 18 97 Room Air 2.0 09/10/18 10:16 92 18 108/72 97 Room Air 09/10/18 10:01 98.6 80 16 105/65 100 Nasal Cannula 2 98.6 09/10/18 09:53 Room Air 09/10/18 09:53 98.6 97 18 99 98.6 09/10/18 09:00 88 18 110/77 (88) 09/10/18 08:04 18 98 Room Air 09/10/18 08:00 Room Air 09/10/18 08:00 94 112/78 (89) 98 Room Air Labs Labs Laboratory Tests Test 09/10/18 09:45 09/11/18 03:35 09/11/18 03:55 White Blood Count 5.7 x10^3/uL (4.0-11.0) 4.4 x10^3/uL (4.0-11.0) Red Blood Count 2.88 x10^6/uL (4.30-5.70) 2.69 x10^6/uL (4.30-5.70) Hemoglobin 8.3 g/dL (13.0-17.5) 7.8 g/dL (13.0-17.5) Hematocrit 25.2 % (39.0-53.0) 23.6 % (39.0-53.0) Mean Corpuscular Volume 88 fL (79-100) 88 fL (79-100) Mean Corpuscular Hemoglobin 29 pg (25-35) 29 pg (25-35) Mean Corpuscular Hemoglobin Concent 33 g/dL (31-37) 33 g/dL (31-37) Red Cell Distribution Width 17.9 % (11.5-14.5) 18.1 % (11.5-14.5) Platelet Count 53 x10^3/uL (140-400) 57 x10^3/uL (140-400) Neutrophils (%) (Auto) 73 % (31-73) 74 % (31-73) Lymphocytes (%) (Auto) 11 % (24-48) 14 % (24-48) Monocytes (%) (Auto) 16 % (0-9) 10 % (0-9) Eosinophils (%) (Auto) 0 % (0-3) 1 % (0-3) Basophils (%) (Auto) 0 % (0-3) 0 % (0-3) Neutrophils # (Auto) 4.1 x10^3uL (1.8-7.7) 3.3 x10^3uL (1.8-7.7) Lymphocytes # (Auto) 0.6 x10^3/uL (1.0-4.8) 0.6 x10^3/uL (1.0-4.8) Monocytes # (Auto) 0.9 x10^3/uL (0.0-1.1) 0.5 x10^3/uL (0.0-1.1) Eosinophils # (Auto) 0.0 x10^3/uL (0.0-0.7) 0.0 x10^3/uL (0.0-0.7) Basophils # (Auto) 0.0 x10^3/uL (0.0-0.2) 0.0 x10^3/uL (0.0-0.2) Sodium Level 137 mmol/L (136-145) 136 mmol/L (136-145) Potassium Level 4.8 mmol/L (3.5-5.1) 3.9 mmol/L (3.5-5.1) Chloride Level 102 mmol/L (98-107) 101 mmol/L (98-107) Carbon Dioxide Level 26 mmol/L (21-32) 27 mmol/L (21-32) Anion Gap 9 (6-14) 8 (6-14) Blood Urea Nitrogen 29 mg/dL (8-26) 27 mg/dL (8-26) Creatinine 1.2 mg/dL (0.7-1.3) 1.1 mg/dL (0.7-1.3) Estimated GFR (Cockcroft-Gault) 62.6 69.2 Glucose Level 125 mg/dL (70-99) 83 mg/dL (70-99) Calcium Level 7.5 mg/dL (8.5-10.1) 7.6 mg/dL (8.5-10.1) BUN/Creatinine Ratio 25 (6-20) Total Bilirubin 1.4 mg/dL (0.2-1.0) Aspartate Amino Transf (AST/SGOT) 50 U/L (15-37) Alanine Aminotransferase (ALT/SGPT) 15 U/L (16-63) Alkaline Phosphatase 57 U/L (46-116) Total Protein 5.7 g/dL (6.4-8.2) Albumin 2.2 g/dL (3.4-5.0) Albumin/Globulin Ratio 0.6 (1.0-1.7) Physical Exam Physical Exam Alert Chest clear Heart regular rate and rhythm Abdomen soft mildly distended with fluid, nontender No Edema Assessment Assessment Upper GI bleed. Secondary to antral ulcers. Also has portal gastropathy but without active bleeding. And small esophageal varices which were not bleeding. . Stable Cirrhosis with ascites and gastropathy Plan: Okay for DC from GI point of view. Continue diuretics. Continue Protonix and Carafate. Follow up with primary care physician and liver clinic ZAHRA SANDERS MD September 11, 2018 07:39
[2018-09-11] MEDS: SUCRALFATE 1 GM TABLET. PO SCH (10:36)
[2018-09-11 11:00] VITALS: BP 109/74
--- NOTE | 2018-09-11 11:05 | PDOC3 ---
[facility]Dis[facility] Summary Date of Admission: Date of Admission: September 10, 2018 Date of Discharge: Date of Discharge: September 11, 2018 Admission Diagnosis: Admitting Diagnosis: GI bleed and alcohol and cirrhosis Discharge Diagnosis: Discharge Diagnosis: Resolving GI bleed probably secondary to a distal esophageal varices (this was not bleeding on EGD) History of alcoholism although he states he quit a year ago Noncompliance Coagulopathy with an INR 1.4 Cirrhosis Consults: Consults: Dr. Taveras Procedures: Procedures: EGD Hospital Course: Hospital Course: Patient is a middle-aged male who used to drink heavily until year ago He presented with upper GI bleeding with hematemesis His hemoglobin was 7.5 we did transfuse him a went to a 0.3 today is down to 7.8 He went for an EGD which did show distal esophageal varices not actively bleeding He is now on Protonix and Carafate and doing well I saw him and examined him this morning his heart tones were normal his lungs were clear he is requesting discharge we plan to discharge Disposition: Disposition/Orders: D/C to Home Activity: Activity: Resume previous activity Diet: Diet: Regular Total Time: Total Time: 32 minutes ISIDRA JEFFREY III, DO September 11, 2018 11:05
--- NOTE | 2018-09-11 11:46 | PDOC ---
[employer] PROGRESS NOTE Chief Complaint Chief Complaint Upper GI bleed secondary to antral ulcers, w/ hx of previous bleeds Prior alcoholism, quit drinking: one year Cirrhosis Coagulopathy Hypertension History of Present Illness History of Present Illness Patient seen and examined Patient feeling well, states would like to go home Anemia has improved since his admission Discussed with him to follow up with his PCP in one week for repeat blood work. He acknowledged understanding and agreed Vitals Vitals Vital Signs Date Time Temp Pulse Resp B/P (MAP) Pulse Ox O2 Delivery O2 Flow Rate FiO2 09/11/18 11:00 98.2 94 18 109/74 (86) 95 Room Air 98.2 09/10/18 17:16 2.0 Physical Exam General: Alert, Oriented X3, Cooperative Heart: Regular rate, Normal S1, Normal S2 Abdomen: Normal bowel sounds, No tenderness, Other Extremities: No clubbing, No cyanosis, No edema Labs LABS Laboratory Tests Test 09/11/18 03:35 09/11/18 03:55 White Blood Count 4.4 x10^3/uL (4.0-11.0) Red Blood Count 2.69 x10^6/uL (4.30-5.70) Hemoglobin 7.8 g/dL (13.0-17.5) Hematocrit 23.6 % (39.0-53.0) Mean Corpuscular Volume 88 fL (79-100) Mean Corpuscular Hemoglobin 29 pg (25-35) Mean Corpuscular Hemoglobin Concent 33 g/dL (31-37) Red Cell Distribution Width 18.1 % (11.5-14.5) Platelet Count 57 x10^3/uL (140-400) Neutrophils (%) (Auto) 74 % (31-73) Lymphocytes (%) (Auto) 14 % (24-48) Monocytes (%) (Auto) 10 % (0-9) Eosinophils (%) (Auto) 1 % (0-3) Basophils (%) (Auto) 0 % (0-3) Neutrophils # (Auto) 3.3 x10^3uL (1.8-7.7) Lymphocytes # (Auto) 0.6 x10^3/uL (1.0-4.8) Monocytes # (Auto) 0.5 x10^3/uL (0.0-1.1) Eosinophils # (Auto) 0.0 x10^3/uL (0.0-0.7) Basophils # (Auto) 0.0 x10^3/uL (0.0-0.2) Sodium Level 136 mmol/L (136-145) Potassium Level 3.9 mmol/L (3.5-5.1) Chloride Level 101 mmol/L (98-107) Carbon Dioxide Level 27 mmol/L (21-32) Anion Gap 8 (6-14) Blood Urea Nitrogen 27 mg/dL (8-26) Creatinine 1.1 mg/dL (0.7-1.3) Estimated GFR (Cockcroft-Gault) 69.2 BUN/Creatinine Ratio 25 (6-20) Glucose Level 83 mg/dL (70-99) Calcium Level 7.6 mg/dL (8.5-10.1) Total Bilirubin 1.4 mg/dL (0.2-1.0) Aspartate Amino Transf (AST/SGOT) 50 U/L (15-37) Alanine Aminotransferase (ALT/SGPT) 15 U/L (16-63) Alkaline Phosphatase 57 U/L (46-116) Total Protein 5.7 g/dL (6.4-8.2) Albumin 2.2 g/dL (3.4-5.0) Albumin/Globulin Ratio 0.6 (1.0-1.7) Review of Systems Review of Systems Patient denies N/V Patient denies CALLEJAS Assessment and Plan Assessmemt and Plan Assessment: Upper GI bleed secondary to antral ulcers, w/ hx of previous bleeds Prior alcoholism, quit drinking: one year Cirrhosis Coagulopathy Hypertension Plan: Cardiac monitoring Start OTC prilosec and carafate at home Home meds DVT ppx Advance diet Follow up with PCP in one week for repeat labs Discharge to home today Comment Review of Relevant I have reviewed the following items clinton (where applicable) has been applied. Labs Laboratory Tests Test 09/09/18 23:20 09/10/18 00:30 09/10/18 06:30 09/10/18 09:45 White Blood Count 9.6 x10^3/uL (4.0-11.0) 5.7 x10^3/uL (4.0-11.0) Red Blood Count 2.59 x10^6/uL (4.30-5.70) 2.88 x10^6/uL (4.30-5.70) Hemoglobin 7.5 g/dL (13.0-17.5) 8.3 g/dL (13.0-17.5) Hematocrit 22.7 % (39.0-53.0) 25.2 % (39.0-53.0) Mean Corpuscular Volume 88 fL (79-100) 88 fL (79-100) Mean Corpuscular Hemoglobin 29 pg (25-35) 29 pg (25-35) Mean Corpuscular Hemoglobin Concent 33 g/dL (31-37) 33 g/dL (31-37) Red Cell Distribution Width 17.8 % (11.5-14.5) 17.9 % (11.5-14.5) Platelet Count 115 x10^3/uL (140-400) 53 x10^3/uL (140-400) Neutrophils (%) (Auto) 83 % (31-73) 73 % (31-73) Lymphocytes (%) (Auto) 5 % (24-48) 11 % (24-48) Monocytes (%) (Auto) 12 % (0-9) 16 % (0-9) Eosinophils (%) (Auto) 0 % (0-3) 0 % (0-3) Basophils (%) (Auto) 0 % (0-3) 0 % (0-3) Neutrophils # (Auto) 8.0 x10^3uL (1.8-7.7) 4.1 x10^3uL (1.8-7.7) Lymphocytes # (Auto) 0.5 x10^3/uL (1.0-4.8) 0.6 x10^3/uL (1.0-4.8) Monocytes # (Auto) 1.1 x10^3/uL (0.0-1.1) 0.9 x10^3/uL (0.0-1.1) Eosinophils # (Auto) 0.0 x10^3/uL (0.0-0.7) 0.0 x10^3/uL (0.0-0.7) Basophils # (Auto) 0.0 x10^3/uL (0.0-0.2) 0.0 x10^3/uL (0.0-0.2) Prothrombin Time 16.8 SEC (11.7-14.0) Prothromb Time International Ratio 1.4 (0.8-1.1) Activated Partial Thromboplast Time 32 SEC (24-38) Sodium Level 137 mmol/L (136-145) 137 mmol/L (136-145) Potassium Level 4.5 mmol/L (3.5-5.1) 4.8 mmol/L (3.5-5.1) Chloride Level 98 mmol/L (98-107) 102 mmol/L (98-107) Carbon Dioxide Level 21 mmol/L (21-32) 26 mmol/L (21-32) Anion Gap 18 (6-14) 9 (6-14) Blood Urea Nitrogen 23 mg/dL (8-26) 29 mg/dL (8-26) Creatinine 1.5 mg/dL (0.7-1.3) 1.2 mg/dL (0.7-1.3) Estimated GFR (Cockcroft-Gault) 48.4 62.6 BUN/Creatinine Ratio 15 (6-20) Glucose Level 123 mg/dL (70-99) 125 mg/dL (70-99) Calcium Level 8.2 mg/dL (8.5-10.1) 7.5 mg/dL (8.5-10.1) Total Bilirubin 2.7 mg/dL (0.2-1.0) Aspartate Amino Transf (AST/SGOT) 48 U/L (15-37) Alanine Aminotransferase (ALT/SGPT) 18 U/L (16-63) Alkaline Phosphatase 74 U/L (46-116) Total Protein 6.5 g/dL (6.4-8.2) Albumin 2.3 g/dL (3.4-5.0) Albumin/Globulin Ratio 0.5 (1.0-1.7) Lipase 201 U/L (73-393) Ethyl Alcohol Level < 10 mg/dL (0-10) Nasal Screen MRSA (PCR) Negative (Negative) Urine Collection Type Void Urine Color [place] Urine Clarity Clear Urine pH 5.5 Urine Specific [place] >=1.030 Urine Protein Negative mg/dL (NEG-TRACE) Urine Glucose (UA) Negative mg/dL (NEG) Urine Ketones (Stick) Trace mg/dL (NEG) Urine Blood Negative (NEG) Urine Nitrite Negative (NEG) Urine Bilirubin Small (NEG) Urine Urobilinogen Dipstick 1.0 mg/dL (0.2 mg/dL) Urine Leukocyte Esterase Negative (NEG) Urine RBC 0 /HPF (0-2) Urine WBC Occ /HPF (0-4) Urine Squamous Epithelial Cells Few /LPF Urine Bacteria 0 /HPF (0-FEW) Test 09/11/18 03:35 09/11/18 03:55 White Blood Count 4.4 x10^3/uL (4.0-11.0) Red Blood Count 2.69 x10^6/uL (4.30-5.70) Hemoglobin 7.8 g/dL (13.0-17.5) Hematocrit 23.6 % (39.0-53.0) Mean Corpuscular Volume 88 fL (79-100) Mean Corpuscular Hemoglobin 29 pg (25-35) Mean Corpuscular Hemoglobin Concent 33 g/dL (31-37) Red Cell Distribution Width 18.1 % (11.5-14.5) Platelet Count 57 x10^3/uL (140-400) Neutrophils (%) (Auto) 74 % (31-73) Lymphocytes (%) (Auto) 14 % (24-48) Monocytes (%) (Auto) 10 % (0-9) Eosinophils (%) (Auto) 1 % (0-3) Basophils (%) (Auto) 0 % (0-3) Neutrophils # (Auto) 3.3 x10^3uL (1.8-7.7) Lymphocytes # (Auto) 0.6 x10^3/uL (1.0-4.8) Monocytes # (Auto) 0.5 x10^3/uL (0.0-1.1) Eosinophils # (Auto) 0.0 x10^3/uL (0.0-0.7) Basophils # (Auto) 0.0 x10^3/uL (0.0-0.2) Sodium Level 136 mmol/L (136-145) Potassium Level 3.9 mmol/L (3.5-5.1) Chloride Level 101 mmol/L (98-107) Carbon Dioxide Level 27 mmol/L (21-32) Anion Gap 8 (6-14) Blood Urea Nitrogen 27 mg/dL (8-26) Creatinine 1.1 mg/dL (0.7-1.3) Estimated GFR (Cockcroft-Gault) 69.2 BUN/Creatinine Ratio 25 (6-20) Glucose Level 83 mg/dL (70-99) Calcium Level 7.6 mg/dL (8.5-10.1) Total Bilirubin 1.4 mg/dL (0.2-1.0) Aspartate Amino Transf (AST/SGOT) 50 U/L (15-37) Alanine Aminotransferase (ALT/SGPT) 15 U/L (16-63) Alkaline Phosphatase 57 U/L (46-116) Total Protein 5.7 g/dL (6.4-8.2) Albumin 2.2 g/dL (3.4-5.0) Albumin/Globulin Ratio 0.6 (1.0-1.7) Laboratory Tests Test 09/11/18 03:35 09/11/18 03:55 White Blood Count 4.4 x10^3/uL (4.0-11.0) Red Blood Count 2.69 x10^6/uL (4.30-5.70) Hemoglobin 7.8 g/dL (13.0-17.5) Hematocrit 23.6 % (39.0-53.0) Mean Corpuscular Volume 88 fL (79-100) Mean Corpuscular Hemoglobin 29 pg (25-35) Mean Corpuscular Hemoglobin Concent 33 g/dL (31-37) Red Cell Distribution Width 18.1 % (11.5-14.5) Platelet Count 57 x10^3/uL (140-400) Neutrophils (%) (Auto) 74 % (31-73) Lymphocytes (%) (Auto) 14 % (24-48) Monocytes (%) (Auto) 10 % (0-9) Eosinophils (%) (Auto) 1 % (0-3) Basophils (%) (Auto) 0 % (0-3) Neutrophils # (Auto) 3.3 x10^3uL (1.8-7.7) Lymphocytes # (Auto) 0.6 x10^3/uL (1.0-4.8) Monocytes # (Auto) 0.5 x10^3/uL (0.0-1.1) Eosinophils # (Auto) 0.0 x10^3/uL (0.0-0.7) Basophils # (Auto) 0.0 x10^3/uL (0.0-0.2) Sodium Level 136 mmol/L (136-145) Potassium Level 3.9 mmol/L (3.5-5.1) Chloride Level 101 mmol/L (98-107) Carbon Dioxide Level 27 mmol/L (21-32) Anion Gap 8 (6-14) Blood Urea Nitrogen 27 mg/dL (8-26) Creatinine 1.1 mg/dL (0.7-1.3) Estimated GFR (Cockcroft-Gault) 69.2 BUN/Creatinine Ratio 25 (6-20) Glucose Level 83 mg/dL (70-99) Calcium Level 7.6 mg/dL (8.5-10.1) Total Bilirubin 1.4 mg/dL (0.2-1.0) Aspartate Amino Transf (AST/SGOT) 50 U/L (15-37) Alanine Aminotransferase (ALT/SGPT) 15 U/L (16-63) Alkaline Phosphatase 57 U/L (46-116) Total Protein 5.7 g/dL (6.4-8.2) Albumin 2.2 g/dL (3.4-5.0) Albumin/Globulin Ratio 0.6 (1.0-1.7) Medications Current Medications Ondansetron HCl (Zofran) 4 mg 1X ONCE IM Last administered on 09/09/18at 23:53; Start 09/10/18 at 00:00; Stop 09/10/18 at 00:01; Status DC Octreotide Acetate 500 mcg/ Sodium Chloride 101 ml @ 0 mls/hr CONT PRN IV SEE I/O RECORD Last administered on 09/10/18at 00:38; Start 09/10/18 at 00:00; Stop 09/10/18 at 10:06; Status DC Morphine Sulfate (Morphine Sulfate) 4 mg 1X ONCE IV Last administered on 09/09/18at 23:53; Start 09/10/18 at 00:00; Stop 09/10/18 at 00:01; Status DC Pantoprazole Sodium 80 mg/ Sodium Chloride 100 ml @ 10 mls/hr Q10H IV Last administered on 09/10/18at 10:42; Start 09/10/18 at 00:00; Stop 09/10/18 at 15:44; Status DC Pantoprazole Sodium (PROTONIX VIAL for IV PUSH) 80 mg 1X ONCE IVP Last administered on 09/09/18 23:53; Start 09/10/18 at 00:00; Stop 09/10/18 at 00:01; Status DC Iohexol (Omnipaque 300 Mg/ml) 60 ml 1X ONCE IV Last administered on 09/10/18at 00:20; Start 09/10/18 at 00:30; Stop 09/10/18 at 00:31; Status DC Info (CONTRAST GIVEN -- Rx MONITORING) 1 each PRN DAILY PRN MC SEE COMMENTS; Start 09/09/18 at 23:45; Stop 09/11/18 at 23:44 Ondansetron HCl (Zofran) 4 mg PRN Q8HRS PRN IV NAUSEA/VOMITING 1ST CHOICE Last administered on 09/10/18 08:03; Start 09/10/18 at 00:15; Stop 09/10/18 at 13:24; Status DC Morphine Sulfate (Morphine Sulfate) 2 mg PRN Q2HR PRN IV SEVERE PAIN Last administered on 09/10/18 10:37; Start 09/10/18 at 00:15; Stop 09/10/18 at 13:23; Status DC Sodium Chloride 1,000 ml @ 75 mls/hr [id number] IV Last administered on 09/10/18 14:07; Start 09/10/18 at 00:13; Stop 09/11/18 at 00:12; Status DC Furosemide (Lasix) 20 mg 1X PRN PRN IVP AFTER BLOOD Last administered on 09/10/18 06:08; Start 09/10/18 at 00:30; Stop 09/11/18 at 00:29; Status DC Sodium Chloride 1,000 ml @ 1,000 mls/hr 1X ONCE IV Last administered on 09/09/18at 23:58; Start 09/10/18 at 00:30; Stop 09/10/18 at 01:29; Status DC Metoclopramide HCl (Reglan Vial) 10 mg 1X STAT IV Last administered on 09/10/18 08:03; Start 09/10/18 at 07:02; Stop 09/10/18 at 07:11; Status DC Ringer's Solution 1,000 ml @ 50 mls/hr Q20H IV Last administered on 09/10/18 09:56; Start 09/10/18 at 09:00; Stop 09/10/18 at 19:00; Status DC Propofol 20 ml @ As Directed STK-MED ONCE IV ; Start 09/10/18 at 09:39; Stop 09/10/18 at 09:40; Status DC Sucralfate (Carafate) 1 gm BID@1000,2200 PO Last administered on 09/11/18at 10:36; Start 09/10/18 at 10:30 Morphine Sulfate (Morphine Sulfate) 2 mg PRN Q2HR PRN IV PAIN Last administered on 09/11/18 08:23; Start 09/10/18 at 13:30 Ondansetron HCl (Zofran) 4 mg PRN Q8HRS PRN IV NAUSEA/VOMITING Last administered on 09/10/18at 16:45; Start 09/10/18 at 13:30 Pantoprazole Sodium (Protonix) 40 mg DAILYAC PO Last administered on 09/11/18at 07:42; Start 09/11/18 at 07:30 Vitals/I & O Vital Sign - Last 24 Hours 09/10/18 09/10/18 09/10/18 09/10/18 14:07 15:00 15:29 16:46 Temp 98.2 98.2 Pulse 91 Resp 18 18 B/P (MAP) 113/84 (94) Pulse Ox 96 95 O2 Delivery Room Air Room Air Room Air Room Air O2 Flow Rate 2.0 09/10/18 09/10/18 09/10/18 09/10/18 17:16 19:00 19:37 19:44 Temp 98.3 98.3 Pulse 90 Resp 18 20 B/P (MAP) 122/72 (89) Pulse Ox 94 O2 Delivery Room Air Room Air Room Air O2 Flow Rate 2.0 09/10/18 09/10/18 09/11/18 09/11/18 22:42 23:00 01:05 01:35 Temp 98.3 98.3 Pulse 92 Resp 20 18 20 20 B/P (MAP) 110/78 (89) Pulse Ox 94 94 O2 Delivery Room Air Room Air Room Air 09/11/18 09/11/18 09/11/18 09/11/18 03:00 07:00 07:45 08:23 Temp 98.3 98.1 98.3 98.1 Pulse 92 87 Resp 18 18 B/P (MAP) 113/74 (87) 115/74 (88) Pulse Ox 95 96 O2 Delivery Room Air Room Air Room Air Room Air 09/11/18 09/11/18 08:59 11:00 Temp 98.2 98.2 Pulse 94 Resp 18 B/P (MAP) 109/74 (86) Pulse Ox 96 95 O2 Delivery Room Air Room Air Intake and Output 09/10/18 09/10/18 09/11/18 15:00 23:00 07:00 Intake Total 425 ml 300 ml Output Total 250 ml 120 ml 250 ml Balance 175 ml 180 ml -250 ml ISIDRA JEFFREY III DO September 11, 2018 11:46
--- NOTE | 2018-09-11 11:58 | NUR ---
SS following for discharge planning. SS reviewed pt chart. Pt is from home and is currently on room air. No discharge needs noted at this time. Discharge order on the chart.
[2018-09-11 15:00] VITALS: BP 106/73
--- NOTE | 2018-09-11 16:00 | NUR ---
Pt discharged home with no additional services, to f/u with PCP in 1-2 weeks. Ambulated to hospital entrance, family member awaiting outside in personal vehicle. Discharge information and education regarding Dx provided to Pt who verbalized understanding and had no further questions or concerns. Pt had a BM a few hours prior to discharge. No other changes from previous assessment.
== END 2018-09-11 16:00 | disposition home or self-care (01) | DRG 432 ==
LOC: ER 09-10 → 1 WEST ICU 09-10 00:02 → 2 NORTH 09-10 14:50
PROVIDERS: ADMIT Internal Medicine; ATTEND Internal Medicine
PROC: 30233N1 Transfusion of Nonautologous Red Blood Cells into Peripheral Vein, Percutaneous Approach (ICD-10-PCS; 2018-09-10)
PROC: 0DJ08ZZ Inspection of Upper Intestinal Tract, Via Natural or Artificial Opening Endoscopic (ICD-10-PCS; principal; 2018-09-10 10:00)
DX: K70.31 Alcoholic cirrhosis of liver with ascites (principal); K25.4 Chronic or unspecified gastric ulcer with hemorrhage; I85.11 Secondary esophageal varices with bleeding; D68.9 Coagulation defect, unspecified; K76.6 Portal hypertension; D64.9 Anemia, unspecified; I10 Essential (primary) hypertension; K29.70 Gastritis, unspecified, without bleeding; K31.89 Other diseases of stomach and duodenum; B19.20 Unspecified viral hepatitis C without hepatic coma; K80.20 Calculus of gallbladder without cholecystitis without obstruction; Z90.49 Acquired absence of other specified parts of digestive tract; Z91.19 Patient's noncompliance with other medical treatment and regimen
CPT/HCPCS: 36415; 43235; 74177; 80048; 80053; 81001; 83690; 85025; 85610; 85730; 86850; 86900; 86901; 86920; 87641; 93005; 96361; 96372; 96374; 96375; 99406; C9113; G0480; J1940; J2270; J2354; J2405; J2704; J2765; J7030; J7120; P9016; Q9967; 99285-25

== ENCOUNTER 2019-11-21 01:18 | Emergency (ER) | payer SELFPAY ==
[~2019-11-21] VITALS: Ht 180.3 cm; Wt 77.2 kg
[~2019-11-21 01:18] MED LIST: AMOX1TAB61 PO; FURO20TA3 PO; OXYC1TAB15 PO; PANT40TA77 PO; SPIR25TA PO; SUCR1TAB35 PO
[2019-11-21] MEDS ORDERED: LIDOCAINE 2% JELLY 6ML IN APPLICATOR. ONE (02:00)
--- NOTE | 2019-11-21 02:05 | PHYS DOC ---
Past Medical History Past Medical History: Gallstones, Hepatitis, Other Additional Past Medical Histor: Esophageal Varicies, Cirrohsis, Hep. C, tibial plateau fx Past Surgical History: Appendectomy, Other Additional Past Surgical Histo: Left Knee, L4-L5 surgery, Paracentesis approx. every 3mo Smoking Status: Current Every Day Smoker Alcohol Use: Sober Drug Use: None General Adult EDM: Chief Complaint: CHEST PAIN-CARDIAC NATURE HPI: HPI: Patient is a 59 year old male who presents with a chief complaint of chest pain for the last 2 days. Pain is intermittent in nature and sharp and describes as painful in his left chest radiating to the back. Patient also says he is unable to move his legs for last 2 days and a sat in his recliner. Patient states he has not made urine in the last 2 days in spite of diuretics. Patient is on the liver transplant list at and has had a TIPS procedure in the past. Patient denies any shortness of breath or fevers or productive cough. No vomiting or diarrhea. Patient has chronic back pain has not noticed a change in that. Patient does state he has had increased edema in his bilateral lower extremities. Review of Systems: Review of Systems: Constitutional: Denies fever or chills. [] Eyes: Denies change in visual acuity. [] HENT: Denies nasal congestion or sore throat. [] Respiratory: Denies cough or shortness of breath. [] Cardiovascular: Complains of chest pain GI: Denies abdominal pain, nausea, vomiting, bloody stools or diarrhea. [] : Denies dysuria. Complains of decreased urine output Musculoskeletal: Reports chronic back pain Integument: Denies rash. [] Neurologic: Denies headache, reports new weakness in bilateral lower extremities Endocrine: Denies polyuria or polydipsia. [] Lymphatic: Denies swollen glands. [] Psychiatric: Denies depression or anxiety. [] Heart Score: Risk Factors: Risk Factors: DM, Current or recent (<one month) smoker, HTN, HLP, family history of CAD, obesity. Risk Scores: Score 0 - 3: 2.5% MACE over next 6 weeks - Discharge Home Score 4 - 6: 20.3% MACE over next 6 weeks - Admit for Clinical Observation Score 7 - 10: 72.7% MACE over next 6 weeks - Early Invasive Strategies Current Medications: Current Medications Medications (Trade) Dose Ordered Sig/Sol Start Time Stop Time Status Last Admin Dose Admin Lidocaine HCl (Glydo (Lidocaine) Jelly) 6 denise ReviewZAP-MED ONCE 11/21/19 02:00 11/21/19 02:00 DC Allergies: Allergies: Allergies Coded Allergies Type Severity Reaction Last Updated Verified No Known Drug Allergies 12/19/18 No Physical Exam: PE: Constitutional: Well developed, well nourished, no acute distress, [] HENT: Normocephalic, atraumatic, bilateral external ears normal, no trismus, nose normal. [] Eyes: PERRLA, EOMI, conjunctiva normal, no discharge. [] Neck: Normal range of motion, no tenderness, supple, no stridor. [] Cardiovascular: Tachycardia, peripheral pulses intact Lungs & Thorax: Diminished breath sounds, no respiratory distress Abdomen: Bowel sounds normal, soft, no tenderness, no masses, no pulsatile masses. [] Skin: Diffuse psoriatic rash on the bilateral lower extremities Back: No tenderness, [] Extremities: 2+ edema to the bilateral lower extremities Neurologic: Alert and oriented X 3, weakness to bilateral lower extremities (question due to effort) sensation intact Psychologic: Affect normal, judgement normal, mood normal. [] Current Patient Data: Labs: Laboratory Tests Test 11/21/19 01:32 11/21/19 02:15 White Blood Count 5.1 x10^3/uL Red Blood Count 3.27 x10^6/uL Hemoglobin 9.4 g/dL Hematocrit 28.7 % Mean Corpuscular Volume 88 fL Mean Corpuscular Hemoglobin 29 pg Mean Corpuscular Hemoglobin Concent 33 g/dL Red Cell Distribution Width 20.2 % Platelet Count 78 x10^3/uL Neutrophils (%) (Auto) 57 % Lymphocytes (%) (Auto) 25 % Monocytes (%) (Auto) 14 % Eosinophils (%) (Auto) 2 % Basophils (%) (Auto) 2 % Neutrophils # (Auto) 2.9 x10^3/uL Lymphocytes # (Auto) 1.3 x10^3/uL Monocytes # (Auto) 0.7 x10^3/uL Eosinophils # (Auto) 0.1 x10^3/uL Basophils # (Auto) 0.1 x10^3/uL Platelet Estimate Decreased Hypochromasia Slight Anisocytosis Mod Ovalocytes Occ Prothrombin Time 18.3 SEC Prothromb Time International Ratio 1.6 Activated Partial Thromboplast Time 38 SEC Sodium Level 147 mmol/L Potassium Level 3.4 mmol/L Chloride Level 109 mmol/L Carbon Dioxide Level 27 mmol/L Anion Gap 11 Blood Urea Nitrogen 9 mg/dL Creatinine 1.1 mg/dL Estimated GFR (Cockcroft-Gault) 69.0 BUN/Creatinine Ratio 8 Glucose Level 172 mg/dL Calcium Level 8.0 mg/dL Magnesium Level 1.7 mg/dL Total Bilirubin 2.7 mg/dL Aspartate Amino Transf (AST/SGOT) 164 U/L Alanine Aminotransferase (ALT/SGPT) 42 U/L Alkaline Phosphatase 136 U/L Troponin I Quantitative < 0.017 ng/mL [id number]-[id number]-Type Natriuretic Peptide 150 pg/mL Total Protein 6.8 g/dL Albumin 2.6 g/dL Albumin/Globulin Ratio 0.6 Amylase Level 56 U/L Lipase 214 U/L Thyroid Stimulating Hormone (TSH) 0.493 uIU/mL Ethyl Alcohol Level 354 mg/dL Urine Collection Type Unknown Urine Color [place] Urine Clarity Clear Urine pH Urine Specific [place] 1.025 Urine Protein mg/dL Urine Glucose (UA) mg/dL Urine Ketones (Stick) mg/dL Urine Blood Urine Nitrite Urine Bilirubin Urine Urobilinogen Dipstick mg/dL Urine Leukocyte Esterase Urine RBC 0 /HPF Urine WBC Occ /HPF Urine Squamous Epithelial Cells Few /LPF Urine Amorphous Sediment Present /HPF Urine Bacteria 0 /HPF Urine Mucus Mod /LPF Current Medications Medications (Trade) Dose Ordered Sig/Sol Route PRN Reason Start Time Stop Time Status Last Admin Dose Admin Lidocaine HCl (Glydo (Lidocaine) Jelly) 1 denise 1X ONCE MM 11/21/19 02:30 11/21/19 02:31 DC 11/21/19 02:01 Lidocaine HCl (Glydo (Lidocaine) Jelly) 6 denise STK-MED ONCE .ROUTE 11/21/19 02:00 11/21/19 02:00 DC Morphine Sulfate (Morphine Sulfate) 4 mg 1X ONCE IV 11/21/19 03:00 11/21/19 03:01 DC 11/21/19 02:58 Multivitamins 10 ml/Thiamine HCl 100 mg/Folic Acid 1 mg/Sodium Chloride 1,011.2 ml @ 1,000.088 mls/hr 1X ONCE IV 11/21/19 04:00 11/21/19 05:00 Vital Signs: Vital Signs Date Time Temp Pulse Resp B/P (MAP) Pulse Ox O2 Delivery O2 Flow Rate FiO2 11/21/19 02:58 100 Room Air EKG: EKG: [] EKG interpreted by me sinus tach with a rate of 124, normal axis, nonspecific ST changes, normal QTC and CO intervals Radiology/Procedures: Radiology/Procedures: [][facility] [address] [place] [address] IMAGING REPORT Signed PATIENT: KAL GUERRERO I ACCOUNT: [id number] : 1960 LOCATION: ER AGE: 59 SEX: M EXAM STATUS: REG ER ORD. PHYSICIAN: KAL SHEA MD REASON: leg swelling PROCEDURE: VENOUS LOWER EXT BILATERAL EXAM: PORTABLE CHEST 1V INDICATION: Reason: leg swelling / Spl. Instructions: / History: . TECHNIQUE: Single view COMPARISON: None FINDINGS: Left chest cardiac event monitor The heart size is normal. The great vessels appear unremarkable. There is no hilar or mediastinal mass. The lungs are clear. There is no pleural effusion or pneumothorax. There are no significant osseous abnormalities. IMPRESSION: No active cardiopulmonary disease. EXAM: Bilateral lower extremity venous Doppler. HISTORY: Bilateral lower extremity pain/swelling. COMPARISON: None. FINDINGS: Grayscale and Doppler analysis of the both lower extremity deep venous systems was performed with graded compression and augmentation. The common femoral, greater saphenous, superficial femoral, popliteal and calf veins were assessed. There is no evidence of deep venous thrombosis. Soft tissue edema is present in the bilateral lower extremities. IMPRESSION: 1. No evidence of deep venous thrombosis. Electronically signed by: Baljeet Naqvi MD (11/21/2019 3:09 AM) [facility] DICTATED and SIGNED BY: BALJEET NAQVI MD DATE: 11/21/19 0309 Course & Med Decision Making: Course & Med Decision Making Pertinent Labs and Imaging studies reviewed. (See chart for details) [] Work-up is significant for significant alcohol intoxication. On initial assessment patient says that he no longer drinks. Patient when questioned admits that he lied to me. I informed her that is very dangerous because I gave him pain medicine which is very dangerous to mix with alcohol. Banana bag has been ordered. Likely the patient has normal kidney function. Patient seen moving his legs in the ER. No DVT in the legs. No significant change in back pain. Doubt cauda equina syndrome. Clancy catheter placed with dark urine output. Heart rate improved to 110 on reassessment. [facility] notified of patient's alcohol level. Dragon Disclaimer: Dragon Disclaimer: This electronic medical record was generated, in whole or in part, using a voice recognition dictation system. Departure Departure Impression: Primary Impression: Acute alcohol intoxication Additional Impressions: Chest pain Liver failure Bilateral leg edema Disposition: HOME, SELF-CARE Condition: STABLE Referrals: LUCILA MCCLURE JR, MD (PCP) 2-3 DAYS Patient Instructions: Alcohol Intoxication Additional Instructions: EMERGENCY DEPARTMENT GENERAL DISCHARGE INSTRUCTIONS THANK YOU for coming to [facility] Emergency Department (ED) today and trusting us with your care. We trust that you had a positive experience in our Emergency Department. If you wish to speak to the department Management you can contact the emergency department director at . YOUR FOLLOW UP INSTRUCTIONS ARE FOLLOWS: Do you have a private doctor? If you do not have a private doctor, please ask for a resource list of physicians or clinics that may be able to assist you with follow up care. The Emergency Physician has interpreted your x-rays. The X-ray specialist will also review them. If there is a change in the findings you will be notified in 48 hours when at all possible. A lab test or lab culture may have been done, your results will be reviewed and you will be notified if you need a change in treatment. ADDITIONAL INSTRUCTIONS AND INFORMATION Your care today has been supervised by a physician who is specially trained in emergency care. Many problems require more than one evaluation for a complete diagnosis and treatment. We recommend that you schedule your follow up appointment as recommended to ensure complete treatment of your illness or injury. If you are unable to obtain follow up care and continue to have a problem, or if your condition worsens we recommend that you return to the ED. We are not able to safely determine your condition over the phone nor are we able to give sound medical advice over the phone. For these safety reasons, if you call for medical advice we will ask you to come to the ED for further evaluation If you have any questions regarding these discharge instructions please call the ED at . SAFETY INFORMATION In the interest of safety, wellness, and injury prevention; we encourage you to wear your seatbelt, if you smoke; quit smoking, and we encourage your family to use pr otective helmet for bicycling and other sporting events that present an increased risk for head injury. IF YOUR SYMPTOMS WORSEN OR NEW SYMPTOMS DEVELOP, OR YOU HAVE CONCERNS ABOUT YOUR CONDITION; OR IF YOUR CONDITION WORSENS WHILE YOU ARE WAITING FOR YOUR FOLLOW UP APPOINTMENT; EITHER CONTACT YOUR PRIMARY CARE DOCTOR, THE PHYSICIAN WHOSE NAME AND NUMBER YOU WERE GIVEN, OR RETURN TO THE ED IMMEDIATELY. Justicifation of Admission Dx: Justifications for Admission: Justification of Admission Dx: N/A KAL SHEA MD Nov 21, 2019 02:05
[2019-11-21 02:09] LABS: BASO # 0.1 x10^3/uL (0.0-0.2); BASO % 2 % (0-3); EOS # 0.1 x10^3/uL (0.0-0.7); EOS % 2 % (0-3); HEMATOCRIT 28.7 % (39.0-53.0); HEMOGLOBIN 9.4 g/dL (13.0-17.5); LYMPH # 1.3 x10^3/uL (1.0-4.8); LYMPH % 25 % (24-48); MEAN CORPUSCULAR HEMOGLOBIN 29 pg (25-35); MEAN CORPUSCULAR HGB CONC 33 g/dL (31-37); MEAN CORPUSCULAR VOLUME 88 fL (79-100); MONO # 0.7 x10^3/uL (0.0-1.1); MONO % 14 % (0-9); NEUT # 2.9 x10^3/uL (1.8-7.7); NEUT % 57 % (31-73); PLATELET COUNT 78 x10^3/uL (140-400); RED BLOOD COUNT 3.27 x10^6/uL (4.30-5.70); RED CELL DISTRIBUTION WIDTH 20.2 % (11.5-14.5); WHITE BLOOD COUNT 5.1 x10^3/uL (4.0-11.0)
[2019-11-21 02:24] LABS: CREATININE 1.1 mg/dL (0.7-1.3); POTASSIUM 3.4 mmol/L (3.5-5.1)
[2019-11-21 02:30] LABS: PROTHROMBIN TIME PATIENT 18.3 SEC (11.7-14.0)
[2019-11-21 02:30] LABS: CLARITY,URINE CLEAR
[2019-11-21] MEDS ORDERED: LIDOCAINE 2% JELLY 6ML IN APPLICATOR. MM ONE (02:30)
[2019-11-21 02:32] LABS: ALBUMIN 2.6 g/dL (3.4-5.0); ALBUMIN/GLOBULIN RATIO 0.6 (1.0-1.7); MAGNESIUM 1.7 mg/dL (1.8-2.4); TOTAL BILIRUBIN 2.7 mg/dL (0.2-1.0); TOTAL PROTEIN 6.8 g/dL (6.4-8.2)
--- NOTE | 2019-11-21 02:34 | EKG ---
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
[2019-11-21 02:50] LABS: COLOR,URINE ORANGE
[2019-11-21 02:51] LABS: AMORPHOUS SEDIMENT,UR PRESENT /HPF; BACTERIA,URINE 0 /HPF (0-FEW); RBC,URINE 0 /HPF (0-2); SQUAMOUS EPITHELIAL CELL,UR FEW /LPF; WBC,URINE OCC /HPF (0-4)
[2019-11-21] MEDS ORDERED: MORPHINE SULFATE 4 MG/ML VIAL. IV ONE (03:00)
[2019-11-21 03:06] LABS: PLT ESTIMATE DECREASED (ADEQUATE)
[2019-11-21 03:07] LABS: ANISOCYTOSIS MOD; HYPOCHROMIA SLIGHT; OVALOCYTES OCC
--- NOTE | 2019-11-21 03:11 | RAD ---
EXAM: PORTABLE CHEST 1V INDICATION: Reason: leg swelling / Spl. Instructions: / History: . TECHNIQUE: Single view COMPARISON: None FINDINGS: Left chest cardiac event monitor The heart size is normal. The great vessels appear unremarkable. There is no hilar or mediastinal mass. The lungs are clear. There is no pleural effusion or pneumothorax. There are no significant osseous abnormalities. IMPRESSION: No active cardiopulmonary disease. EXAM: Bilateral lower extremity venous Doppler. HISTORY: Bilateral lower extremity pain/swelling. COMPARISON: None. FINDINGS: Grayscale and Doppler analysis of the both lower extremity deep venous systems was performed with graded compression and augmentation. The common femoral, greater saphenous, superficial femoral, popliteal and calf veins were assessed. There is no evidence of deep venous thrombosis. Soft tissue edema is present in the bilateral lower extremities. IMPRESSION: 1. No evidence of deep venous thrombosis. Electronically signed by: Faith Naqvi MD (11/21/2019 3:09 AM) [facility] [place]
[2019-11-21] MEDS ORDERED: MULTIVIT INFUSN,ADULT 4,VIT K 10 ML, THIAMINE INJ 100 MG, FOLIC ACID INJ 1 MG in IV NOR... IV ONE (04:00)
[2019-11-21 07:00] VITALS: BP 107/53
== END 2019-11-21 07:08 | disposition home or self-care (01) ==
LOC: ER 01:18
DX: F10.229 Alcohol dependence with intoxication, unspecified (principal); R07.89 Other chest pain; K70.10 Alcoholic hepatitis without ascites; K70.40 Alcoholic hepatic failure without coma; R60.0 Localized edema; R53.1 Weakness; F17.200 Nicotine dependence, unspecified, uncomplicated; Z90.89 Acquired absence of other organs; Z98.890 Other specified postprocedural states; Z87.442 Personal history of urinary calculi
CPT/HCPCS: 36415; 71045; 80053; 81001; 82140; 82150; 83690; 83735; 83880; 84443; 84484; 85025; 85610; 85730; 93005; 93970; 96365; 96366; 96375; 99285; G0480; J2270; J3411; J3490; J7030

== ENCOUNTER 2020-01-01 08:28 | Inpatient (IN) | payer MEDICARE, OTHER ==
[2020-01-01] VITALS (13 sets, daily range): BP systolic 109–130; BP diastolic 60–74
[~2020-01-01] VITALS: Ht 180.3 cm; Wt 82.1 kg
--- NOTE | 2020-01-01 09:14 | PDOC2 ---
GI CONSULT Date of Service: DATE: 01/01/20 TIME: 09:14 Reason For Consult: GIB HPI: HPI: 59 y/o male s/p emergent transfer from [facility]. Reports hematemesis ("a lot of red blood") on Tuesday and Tuesday w/ melena, diffuse abnormal soreness from retching, bad heartburn, and fever. Says "it all set my SVT off." H/o Hep C/alcoholic cirrhosis w/ anemia, thrombocytopenia, coagulopathy, past bleeding, and recurrent ascites. Says started on Epclusa through hepatology (Dr. Camargo). Also goes to [facility] because that's his favorite hospital but lives in [place] so [facility] is closest. EGD 09/10/[address] Ambriz: grade I-II non-bleeding distal esophageal varices, mild portal gastropathy w/o bleeding, no gastric varices, non-bleeding pre- pyloric Joceline but old melena in stomach, inflammation in duodenum (no ulcers or varices) EGD 12/15/[address] Taveras: no large esophageal varices seen - maybe grade I at best, no apparent M-W tear, moderate blood in fundus - unable to visualize well - only fresh blood seen in this area, rest of stomach with scattered blood but no lesions seen, normal duodenum. *pt uncooperative throughout exam* EGD 12/19/[address] Taveras: small grade I at best esophageal varices distally, small varix in cardia with red spots - suspect this may have been the cause of recent bleed, diffuse portal gastropathy, persistent ulcer measuring 6-8mm (described by Dr. Mane at [facility] [address] Ambriz here in August) with deformity o f prepyloric antrum and pylorus (biopsy: reactive gastropathy with focal mild acute and chronic inflammation - negative for H. pylori and malignancy), some deformity in duodenal bulb w/o ulcer and second portion normal. Doppler US 11/2018: spleen is mildly enlarged, splenic vein is patent in the region of splenic hilum and mid and proximal segments of the splenic vein are not visualized due to underlying bowel gas. EGD by Dr. Mckeon in 2019: and small varices. S/p TIPS @ [facility] in 03/2019. EGD 12/03/[address] Jori Nam @ [facility] for hematemesis showed small esophageal varices , semipudunculated polyp in pylorus w/ ulceration and stigmata of recent bleeding, chronic gastritis in whole stomach w/ nodularity, duodenal diverticulum in second portion. Pending biopsy results of polyp, recommendation for referral for polypectomy vs repeat endoscopy to asses for ulcer healing, BID PPI, and outpt colonoscopy. Additional h/o GERD and cholelithiasis. On pantoprazole QD. Denies NSAIDs. Reports normal colonoscopy at age 51. At H: Hgb 7.8, MCV 82, plt 51, INR 1.4, BUN 11, Cr 1, bili 4.8, AST 55, ALT 19, Alk Phos 84, +Hemoccult, lactic 2. PMH: PMH: psoriasis, SVT lumbar fusion, TIPS, appendectomy, left knee surgery FH: Family History: No pertinent hx Social History: ALCOHOL: other Drugs: None ROS: GEN: +fever HEENT: Denies blurred vision, sore throat CV: Denies chest pain RESP: Denies shortness of air, cough GI: Per HPI : Denies hematuria, dysuria ENDO: Denies weight changes NEURO: Denies confusion, dizziness MSK: +back pain SKIN: Denies jaundice, pruritus Allergies: Coded Allergies: No Known Drug Allergies (Unverified , 12/19/18) PE: GEN: NAD HEENT: Atraumatic, PERRL LUNGS: CTAB HEART: RRR ABD: quiet, soft, non-specifically tender EXTREMITY: No edema SKIN: No rashes, no jaundice NEURO/PSYCH: A & O 3 A/P: A/P: Hematemesis, melena, abd pain, fever - EGD ~1 month ago @ [facility] as above Anemia, thrombocytopenia Hep C/alcoholic cirrhosis s/p TIPS - says on Epclusa w/ [facility] H/o small esophageal varices and gastric varix H/o PUD and gastric polyp GERD CRC screen - reportedly normal in the past Cholelithiasis R/o COVID-19 -- D/w Dr. Taveras - EGD this morning. NPO, IV PPI. Note transfusion ordered. ANTOINETTE SALDANA Jan 01, 2020 09:14
[2020-01-01] MEDS ORDERED: PANTOPRAZOLE IV PUSH 40 MG VIAL. IVP SCH (09:30)
[2020-01-01] MEDS ORDERED: ONDANSETRON PF 4 MG/2 ML VIAL. IVP PRN (10:15)
[2020-01-01 10:38] LABS: BASO # 0.1 x10^3/uL (0.0-0.2); BASO % 1 % (0-3); EOS # 0.1 x10^3/uL (0.0-0.7); EOS % 2 % (0-3); HEMATOCRIT 21.2 % (39.0-53.0); LYMPH # 0.9 x10^3/uL (1.0-4.8); LYMPH % 16 % (24-48); MEAN CORPUSCULAR HEMOGLOBIN 26 pg (25-35); MEAN CORPUSCULAR HGB CONC 32 g/dL (31-37); MEAN CORPUSCULAR VOLUME 82 fL (79-100); MONO # 0.7 x10^3/uL (0.0-1.1); MONO % 13 % (0-9); NEUT # 3.6 x10^3/uL (1.8-7.7); NEUT % 67 % (31-73); PLATELET COUNT 39 x10^3/uL (140-400); RED BLOOD COUNT 2.59 x10^6/uL (4.30-5.70); RED CELL DISTRIBUTION WIDTH 22.3 % (11.5-14.5); WHITE BLOOD COUNT 5.3 x10^3/uL (4.0-11.0)
[2020-01-01 10:54] LABS: HEMOGLOBIN 6.7 g/dL (13.0-17.5)
[2020-01-01] MEDS: FUROSEMIDE 20 MG TABLET PO SCH (11:00)
[2020-01-01] MEDS: SPIRONOLACTONE 25 MG TABLET PO SCH (11:00)
[2020-01-01] MEDS ORDERED: IV RINGERS,LACTATED 1000ML 1,000 ML IV SCH (11:14)
[2020-01-01] MEDS ORDERED: PROPOFOL 10 MG/ML (20ML) VIAL. IV ONE (11:27)
[2020-01-01] MEDS ORDERED: LIDOCAINE 2% PF 5 ML VIAL. ONE (11:27)
[2020-01-01] MEDS: IV RINGERS,LACTATED 1000ML 1,000 ML IV SCH (11:30)
[2020-01-01] MEDS: SUCRALFATE 1 GM TABLET. PO SCH ×3 (11:30→20:53)
--- NOTE | 2020-01-01 11:44 | HP ---
ADMIT DATE: 01/01/2020 HISTORY OF PRESENT ILLNESS: The patient is a 59-year-old male patient who came to the Emergency Room of [facility] complaining of recurrent bouts of nausea, vomiting and diarrhea, also complained of hematemesis and black tarry stool that has been going on since last . Did complain of abdominal pain that goes through and through to the back. He stated that whenever started vomiting, he feels that his heart rate is accelerating, however, he denied any fever, denied any COVID contact. Apparently was tested about 5 times in the last 4 weeks. He said that he had an EGD about [address] [facility] and apparently had esophageal varices banding. He has similar presentation about 4 months ago as he follows with the [facility] for his hepatitis C and also at [facility] with his primary care physician. PAST MEDICAL HISTORY: Significant for hepatitis C that was diagnosed in 1986, was treated at that time with interferon and ribavirin, according to him, it has relapsed again in 2018 and was seen at [facility] and has been on treatment for that. He is known to have liver cirrhosis with portal hypertension and esophageal varices. He has had about 30 paracentesis and underwent TIPS procedure in 2019 and since then did not have any further ascites. He is known to have generalized osteoarthritis and psoriasis. PAST SURGICAL HISTORY: Significant for appendectomy, vasectomy L4-L5 vertebral fusion, left total knee arthroplasty, multiple esophagogastroduodenoscopy and TIPS procedure. ALLERGIES: He has no known drug allergies. MEDICATIONS: He is currently on Protonix 40 mg once a day, Zofran 4 mg every 4 hours as needed, midodrine 10 mg 3 times a day, metoprolol 25 mg twice a day and ferrous sulfate 325 mg twice a day. FAMILY HISTORY: He has 1 brother and 1 sister, all younger and healthy. Father at the age of 90 with complication of obesity. Mother is still alive at the age of 88 and seemingly healthy. SOCIAL HISTORY: He is , has 2 sons, one in halfway and one lives with him. He smokes only 2 cigarettes a day. He used to smoke a pack a day and quit doing that 5 years ago He does not drink alcohol or use any recreational drugs. He is currently retired and on disability. 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 REVIEW OF SYSTEMS: The patient denied any blurring of vision, cataract, glaucoma or macular degeneration. Denied any earache, tinnitus or sensorineural deafness. Denied any nosebleeds, stuffy nose or postnasal drip. Denied any sore throat, sore tongue, difficulty swallowing. Did complain of obviously nausea, vomiting, hematemesis and melena. Denied any dysuria, frequency or hematuria. Denied any chest pain, shortness of breath, orthopnea, paroxysmal nocturnal dyspnea. Denied any cough, phlegm or hemoptysis. PHYSICAL EXAMINATION: GENERAL: On arrival to the Emergency Room of [facility] he was pale, jaundiced, but not cyanosed. No lymphadenopathy, no thyromegaly. No jugular venous distention. No lower limb edema. VITAL SIGNS: His heart rate on arrival was 91, blood pressure was 142/71, temperature was 99.1, respiratory rate was 16, and oxygen saturation was 99% on room air. HEAD, EYES, EARS, NOSE AND THROAT: Normocephalic, atraumatic. NECK: Supple. HEART: Normal first and second heart sounds. No gallop or murmur. CHEST: Clear to auscultation. No crepitation or rhonchi. ABDOMEN: Distended. Tenderness mostly in epigastric area. No guarding or rigidity. No organomegaly. All hernial orifice intact. Bowel sounds normal. NEUROLOGIC: He is awake, alert, responding appropriately. All cranial nerves intact. EXTREMITIES: He moves extremities without difficulty, has no flapping tremor. LABORATORY DATA: Showed a white cell count 7000, hemoglobin 7.8, hematocrit 24.5, MCV 82 and platelet count of 51,000 with normal manual differential. His chemistry showed a serum sodium of 135, potassium 3.4, chloride 103, bicarbonate 24, anion gap of 8, BUN 11, creatinine 1, estimated GFR was 77 mL per minute. His glucose was 110. Lactic acid 2, calcium was 7.4. Total bilirubin 4.8. AST slightly elevated. ALT and alkaline phosphatase is normal. Total protein was 6.6, albumin 2.5. His prothrombin time was 14.3, INR 1.4, aPTT was 33. His stool for occult blood was positive. ASSESSMENT AND PLAN: In summary, this is a 59-year-old male patient with apparently liver cirrhosis due to hepatitis C. He is known to have portal hypertension with ascites, esophageal varices. He apparently had a 30 paracentesis according to him before and since he had a TIPS procedure done in 03/2019 he did not require any paracentesis. He presented with what seems to be hematemesis and melena, although he does not describe his stool as maroon-colored but dark black and he is already on iron. He has had upper GI endoscopy with esophageal varices banding about [address] [facility]. He is not on any nonsteroidal anti-inflammatory medication. PLAN: The patient was admitted to [facility]. We will keep him n.p.o., start him on IV fluid and consult the Gastroenterology team. We will continue with IV Protonix as well as start him on IV fluid. We will monitor his H and H and transfuse him as needed. KELSIE JUNIOR MD DR: PACO/sruthi JOB#: [id number] / [id number]
--- NOTE | 2020-01-01 11:53 | PDOC4 ---
PROCEDURE Procedure EGD/biopsy Indication: UGI bleeding Meds: per anesthesia Findings: E--Severe erosive esophagitis, distal third. No varices. No M-W tear, but difficult to exclude with the esophagitis. G--Ulcerated pre-pyloric polyp as described at [facility]. Ulcer clean-based w/o stigmata of recent bleeding or high-risk features. Polyp ~15mm, ulcer ~6- 8mm. Able to wriggle into duodenum. Biopsied the polyp. D--Diverticulum second portion. Some old blood in second portion. Otherwise normal. Tati. well IMP: Severe esophagitis. Prepyloric polyp, ulcerated but with no signs of bleeding from this. Duodenal diverticulum. REC: PO PPI. Clears. Await path. Monitor for bleeding. JESSICA LÓPEZ MD Jan 01, 2020 11:53
[2020-01-01 12:02] LABS: ANISOCYTOSIS SLIGHT; OVALOCYTES OCC; PLT ESTIMATE DECREASED (ADEQUATE); POLYCHROMASIA SLIGHT; TARGET CELLS OCC
[2020-01-01] MEDS: fentaNYL PF VIAL 100 MCG/2 ML VIAL IVP PRN ×3 (12:48→20:54)
[2020-01-01] MEDS ORDERED: SOFO1TAB3 PO (15:34)
[2020-01-01] MEDS ORDERED: C.DIFF MED SCREEN BY RX. MC SCH (16:15)
[2020-01-01] MEDS: PANTOPRAZOLE 40 MG TABLET.DR. PO SCH (16:43)
[2020-01-01] MEDS: POTASSIUM CL 40MEQ IN 0.9%NACL 1,000 ML IV SCH (18:54)
[2020-01-01] MEDS ORDERED: LACTOBACILLUS RHAMNOSUS GG 1 CAPSULE. PO SCH (21:00)
[2020-01-02] MEDS: IV RINGERS,LACTATED 1000ML 1,000 ML IV SCH ×2 (00:20→13:40)
[2020-01-02] MEDS: fentaNYL PF VIAL 100 MCG/2 ML VIAL IVP PRN ×6 (01:07→21:27)
[2020-01-02 03:00] VITALS: BP 138/66
[2020-01-02] MEDS: POTASSIUM CL 40MEQ IN 0.9%NACL 1,000 ML IV SCH ×3 (04:41→16:17)
[2020-01-02 07:00] VITALS: BP 132/72
[2020-01-02 07:15] LABS: HEMATOCRIT 24.9 % (39.0-53.0); HEMOGLOBIN 7.9 g/dL (13.0-17.5); RED BLOOD COUNT 2.97 x10^6/uL (4.30-5.70); RED CELL DISTRIBUTION WIDTH 21.8 % (11.5-14.5); WHITE BLOOD COUNT 4.1 x10^3/uL (4.0-11.0)
[2020-01-02 07:27] LABS: ALBUMIN 2.2 g/dL (3.4-5.0); ALBUMIN/GLOBULIN RATIO 0.7 (1.0-1.7); CALCIUM 7.5 mg/dL (8.5-10.1); CREATININE 0.9 mg/dL (0.7-1.3); POTASSIUM 4.4 mmol/L (3.5-5.1); TOTAL BILIRUBIN 3.8 mg/dL (0.2-1.0); TOTAL PROTEIN 5.5 g/dL (6.4-8.2)
[2020-01-02 08:06] LABS: PROTHROMBIN TIME PATIENT 20.6 SEC (11.7-14.0)
[2020-01-02] MEDS: SUCRALFATE 1 GM TABLET. PO SCH ×4 (08:24→21:26)
[2020-01-02] MEDS: PANTOPRAZOLE 40 MG TABLET.DR. PO SCH ×2 (08:24→16:17)
[2020-01-02] MEDS: SPIRONOLACTONE 25 MG TABLET PO SCH (08:25)
[2020-01-02] MEDS: FUROSEMIDE 20 MG TABLET PO SCH (08:25)
--- NOTE | 2020-01-02 10:40 | NUR ---
SW following. Discussed with RN, pt from home, independent, room air, clear liquid diet. Pt wanting to go home today. EGD planned for today. SW will continue to follow.
[2020-01-02 10:53] VITALS: BP 123/70
--- NOTE | 2020-01-02 11:05 | PDOC ---
Date of Service: DATE: 01/02/20 TIME: 10:59 Subjective: Subjective: Feels better, would like to advance diet. Had a more normal stool during the night - more formed, less dark. No n/v. Always has abdominal pain but pain is better today. Would be okay staying another night. Objective: Objective: Nurse says he's asking to leave. Vital Signs: Vital Signs Date Time Temp Pulse Resp B/P (MAP) Pulse Ox O2 Delivery O2 Flow Rate FiO2 01/02/20 10:53 99.0 82 17 123/70 (87) 97 Room Air 99.0 01/01/20 16:44 2.0 Labs: Laboratory Tests Test 01/02/20 06:59 White Blood Count 4.1 x10^3/uL Red Blood Count 2.97 x10^6/uL Hemoglobin 7.9 g/dL Hematocrit 24.9 % Mean Corpuscular Volume 84 fL Mean Corpuscular Hemoglobin 27 pg Mean Corpuscular Hemoglobin Concent 32 g/dL Red Cell Distribution Width 21.8 % Platelet Count 45 x10^3/uL Prothrombin Time 20.6 SEC Prothromb Time International Ratio 1.8 Sodium Level 137 mmol/L Potassium Level 4.4 mmol/L Chloride Level 107 mmol/L Carbon Dioxide Level 24 mmol/L Anion Gap 6 Blood Urea Nitrogen 8 mg/dL Creatinine 0.9 mg/dL Estimated GFR (Cockcroft-Gault) 87.0 BUN/Creatinine Ratio 9 Glucose Level 92 mg/dL Calcium Level 7.5 mg/dL Total Bilirubin 3.8 mg/dL Aspartate Amino Transf (AST/SGOT) 40 U/L Alanine Aminotransferase (ALT/SGPT) 13 U/L Alkaline Phosphatase 69 U/L Ammonia 14 mcmol/L Total Protein 5.5 g/dL Albumin 2.2 g/dL Albumin/Globulin Ratio 0.7 Imaging: EGD 01/01 E--Severe erosive esophagitis, distal third. No varices. No M-W tear, but difficult to exclude with the esophagitis. G--Ulcerated pre-pyloric polyp as described at [facility]. Ulcer clean-based w/o stigmata of recent bleeding or high-risk features. Polyp ~15mm, ulcer ~6- 8mm. Able to wriggle into duodenum. Biopsied the polyp. D--Diverticulum second portion. Some old blood in second portion. Otherwise normal. IMP: Severe esophagitis. Prepyloric polyp, ulcerated but with no signs of bleeding from this. Duodenal diverticulum. REC: PO PPI. Clears. Await path. Monitor for bleeding. PE: GEN: NAD LUNGS: CTAB HEART: RRR ABD: soft NEURO/PSYCH: A & O 3 A/P: Hematemesis, melena - resolved Abd pain - better/stable GERD (severe esophagitis as above), non-bleeding ulcerated pre-pyloric polyp (path benign at [facility]), duodenal diverticulum Anemia, thrombocytopenia, coagulopathy, elevated LFTs - MELD 20 Hep C/alcoholic cirrhosis s/p TIPS - on Epclusa at [facility] H/o PUD -- ?advance diet - will d/w Dr. Taveras Justicifation of Admission Dx: Justifications for Admission: Justification of Admission Dx: N/A ANTOINETTE SALDANA Jan 02, 2020 11:05
--- NOTE | 2020-01-02 14:21 | PN ---
DATE: 01/02/2020 SUBJECTIVE: The patient is resting, slightly propped up in bed, no apparent distress. On questioning him, he denied any further episodes of nausea, vomiting. No hematemesis or melena. He said that he had a bowel movement around 3:00 this morning that was not as dark as it used to be. He has had esophagogastroduodenoscopy done yesterday and apparently has severe esophagitis and prepyloric polyp ulcerated, but with no sign of bleeding from that area and has a duodenal diverticulum. He was started on proton pump inhibitor and was started on a clear liquid diet. PHYSICAL EXAMINATION: GENERAL: When I examined him this morning, he looked well and was clearly in no apparent respiratory distress, pale, but no jaundice, cyanosis or thyromegaly. No jugular venous distention or limb edema. VITAL SIGNS: His heart rate was 82, blood pressure was 123/70, temperature was 99, respiratory rate was 17 and oxygen saturation was 97% on room air. HEAD, EYES, EARS, NOSE AND THROAT: Showed he is normocephalic, atraumatic. NECK: Supple. HEART: Normal first and second heart sounds with no gallop or murmur. CHEST: Clear to auscultation. No crepitation or rhonchi. ABDOMEN: Distended, soft, nontender. No guarding or rigidity. No organomegaly. All hernial orifice intact. Bowel sounds normal. NEUROLOGIC: He was awake, alert, responding appropriately. All cranial nerves are intact. He moves extremities without difficulty. He ambulates without assistance or assistive devices. His intake over the last 24 hours and output were incompletely recorded. LABORATORY DATA: His lab work this morning showed a white cell count 4100, hemoglobin 7.9, hematocrit 25, MCV 84 and platelet count of 45,000. His chemistry showed a serum sodium 137, potassium 4.4, chloride 107, bicarbonate 24, anion gap of 6, BUN 8, creatinine 0.9, estimated GFR was 87 mL per minute, his glucose was 92, calcium was 7.5. Total bilirubin was 3.8. AST slightly elevated. ALT and alkaline phosphatase are normal. His ammonia was 14. Total protein was 5.5, albumin was 2.2. His prothrombin time was 20.6, INR 1.8. His coronavirus by PCR was not detectable. ASSESSMENT: 1. Hematemesis and melena has resolved. Acute blood loss anemia, status post 1 unit of blood transfusion. The patient has chronic hepatitis C and advanced liver cirrhosis. 2. Portal hypertension and esophageal varices. According to him, he said that he has about 30 paracentesis and underwent TIPS procedure in 2019 and since then he did not have any further ascites. He has also generalized osteoarthritis and psoriasis. PLAN: To advance his diet. We will observe him for another 24 hours and he can be discharged home if he remained hemodynamically stable with stable H and H. KELSIE JUNIOR MD DR: PACO/sruthi JOB#: [id number] / [id number]
[2020-01-02 15:00] VITALS: BP 128/74
[2020-01-02 19:00] VITALS: BP 120/66
[2020-01-02 23:00] VITALS: BP 123/81
[2020-01-03] MEDS: fentaNYL PF VIAL 100 MCG/2 ML VIAL IVP PRN ×3 (01:42→10:17)
[2020-01-03] MEDS: POTASSIUM CL 40MEQ IN 0.9%NACL 1,000 ML IV SCH (02:40)
[2020-01-03 02:44] VITALS: BP 127/70
[2020-01-03] MEDS: IV RINGERS,LACTATED 1000ML 1,000 ML IV SCH (03:00)
[2020-01-03 07:00] VITALS: BP 141/78
[2020-01-03 07:24] LABS: HEMATOCRIT 24.6 % (39.0-53.0); RED BLOOD COUNT 2.95 x10^6/uL (4.30-5.70); WHITE BLOOD COUNT 3.7 x10^3/uL (4.0-11.0)
[2020-01-03 07:27] LABS: CALCIUM 7.7 mg/dL (8.5-10.1); CREATININE 0.8 mg/dL (0.7-1.3); GFR 99.6
[2020-01-03] MEDS: PANTOPRAZOLE 40 MG TABLET.DR. PO SCH (08:00)
[2020-01-03] MEDS: SUCRALFATE 1 GM TABLET. PO SCH (08:00)
[2020-01-03] MEDS: FUROSEMIDE 20 MG TABLET PO SCH (08:00)
[2020-01-03] MEDS: SPIRONOLACTONE 25 MG TABLET PO SCH (08:00)
--- NOTE | 2020-01-03 09:28 | DS ---
DATE OF DISCHARGE: HOSPITAL COURSE: The patient is a 59-year-old male patient who presented initially to the Emergency Room at [facility] with hematemesis and melena. His hemoglobin and hematocrit had dropped down to 6.7 and 21. He did receive 1 unit of packed RBCs and underwent esophagogastroduodenoscopy and it showed that the patient has severe esophagitis, prepyloric polyp that is ulcerated, but with no sign of bleeding from this and he has also duodenal diverticulum. He was started on proton pump inhibitor and was put on a clear liquid diet. His diet was advanced as tolerated. His H and H remained stable and in consultation with the Gastroenterology team, a decision was made to discharge him home, to follow with his primary care physician at [facility] and his sandstone splitter at [facility]. PHYSICAL EXAMINATION: GENERAL: When I saw him today, he looked well and was clearly in no apparent respiratory distress. He was pale, but no jaundice. No cyanosis. No lymphadenopathy, no thyromegaly, no jugular venous distention, no limb edema. VITAL SIGNS: His heart rate was 72, blood pressure was 127/70, his temperature was 98.7, respiratory rate was 17 and oxygen saturation was 97% on room air. HEAD, EYES, EARS, NOSE AND THROAT: Showed normocephalic, atraumatic. NECK: Supple. HEART: Normal first and second sounds. No gallop or murmur. CHEST: Clear to auscultation. No crepitation or rhonchi. ABDOMEN: Distended, soft, nontender. No guarding or rigidity. No organomegaly. All hernial orifice intact. Bowel sounds normal. NEUROLOGIC: He was awake, alert, responding appropriately. All cranial nerves intact. EXTREMITIES: He moves extremities without difficulty. He ambulates without assistance or assistive devices. Intake was 850, output was 1350. LABORATORY DATA: As of this morning, his white cell count was 3700, hemoglobin 8, hematocrit 24, MCV 83, and platelet count of 45,000. His chemistry showed a serum sodium 136, potassium 4, chloride 105, bicarbonate 24, anion gap of 7, BUN 6, creatinine 0.8, estimated GFR was 99 mL per minute. His glucose was 86, calcium was 7.7. DISCHARGE MEDICATIONS: The patient was discharged home to continue on his anti-hepatitis B medication, sucralfate 1 g 4 times a day, Protonix 40 mg daily and oxycodone/APAP 5/325 one tablet every 6 hours as needed for pain. FINAL DISCHARGE DIAGNOSES: Hematemesis and melena have resolved. Acute blood loss anemia, status post 1 unit of packed RBCs. His H and H have been stable. His upper GI endoscopy showed severe esophagitis and nonbleeding, ulcerated prepyloric polyp. Apparently, it was biopsied at [facility] and was found to be benign. He was found also to have duodenal diverticulum. He has chronic hepatitis C, alcoholic cirrhosis, status post TIPS on Epclusa at [facility]. KELSIE JUNIOR MD DR: PACO/sruthi JOB#: [id number] / [id number]
--- NOTE | 2020-01-03 09:58 | NUR ---
SW following. Discussed with RN, pt from home, independent, room air, regular diet, COVID-19 negative. Pt wanting to discharge home, RN advised no SW needs and anticipates discharge home today with self care.
--- NOTE | 2020-01-03 10:59 | NUR ---
Discharge Note: PT DISCHARGED HOME WITH SELF CARE. PT LEFT FACILITY VIA [facility] AT 1056. PT STABLE AND ALERT UPON DISCHARGE. PT PIV REMOVED FROM R AC WITHOUT COMPLICATIONS, BANDAGE APPLIED. PT EDUCATED ABOUT DISCHARGE INSTRUCTIONS, DISCHARGE MEDICATIONS, AND FOLLOW-UP CARE. PT WALLET RETURNED FROM SECURITY. PT VOICED NO CONCERNS AT THIS TIME. PT LEFT WITH ALL PERSONAL BELONGINGS. KAL GUERRERO Discharge instructions and discharge home medications reviewed with Patient and a copy given. All questions have been answered and understanding verbalized.
--- NOTE | 2020-01-10 14:07 | PATHOLOGY ---
[facility] Accession Number: [id number] . 01 Material submitted: . stomach - BIOPSY OF PRE-PYLORIC POLYP . 01 Clinical history: . ANEMIA, 6.2 HGB, GI BLEED . 02 Diagnosis: Stomach "prepyloric polyp", endoscopic biopsy: - Hyperplastic polyp, arising in a background of reactive gastropathy. - Negative for intestinal metaplasia, dysplasia, and malignancy. (MLK/db; 01/08/2020) LBQ 01/08/2020 1820 Local . 02 Electronically signed: . Darian Nieto MD, Pathologist NPI- [id number] . 01 Gross description: . The specimen is received in formalin, labeled "Jori Blanchard, BX of prepyloric polyp" and consists of 2 fragments of pink-overton tissue measuring 0.3 x 0.2 cm and 0.3 x 0.3 cm which are entirely submitted in A1. (SDY; 01/02/2020) SYU/SYU 01/02/2020 1116 Local . 02 Pathologist provided ICD-10: K31.7 . 02 CPT . 839850 Specimen Comment: A courtesy copy of this report has been sent to [phone] Specimen Comment: [id number], Specimen Comment: Report sent to ,DR JUNIOR / DR MCCLURE Performed at: 01 [facility] [address], [place] [id number] MD You Aaron MD Phone: [phone] Performed at: 02 [facility] [address], [place] [id number] MD Bharathi Chapman MD Phone: [phone]
== END 2020-01-03 10:56 | disposition home or self-care (01) | DRG 377 ==
LOC: 5 NORTH 08:28
PROVIDERS: ADMIT Internal Medicine; ATTEND Internal Medicine
PROC: 30233N1 Transfusion of Nonautologous Red Blood Cells into Peripheral Vein, Percutaneous Approach (ICD-10-PCS; 2020-01-01)
PROC: 0DB68ZX Excision of Stomach, Via Natural or Artificial Opening Endoscopic, Diagnostic (ICD-10-PCS; principal; 2020-01-01 11:30)
DX: K25.4 Chronic or unspecified gastric ulcer with hemorrhage (principal); E43 Unspecified severe protein-calorie malnutrition; K76.6 Portal hypertension; D62 Acute posthemorrhagic anemia; D68.9 Coagulation defect, unspecified; K57.11 Diverticulosis of small intestine without perforation or abscess with bleeding; Z96.652 Presence of left artificial knee joint; M15.9 Polyosteoarthritis, unspecified; L40.9 Psoriasis, unspecified; B18.2 Chronic viral hepatitis C; K70.31 Alcoholic cirrhosis of liver with ascites; K21.0 Gastro-esophageal reflux disease with esophagitis; F17.210 Nicotine dependence, cigarettes, uncomplicated; Z20.828 Contact with and (suspected) exposure to other viral communicable diseases; K31.7 Polyp of stomach and duodenum; D69.6 Thrombocytopenia, unspecified; K31.89 Other diseases of stomach and duodenum; K80.20 Calculus of gallbladder without cholecystitis without obstruction; Z98.1 Arthrodesis status; Z87.11 Personal history of peptic ulcer disease
CPT/HCPCS: 36415; 43239; 80048; 80053; 82140; 85025; 85027; 85610; 86850; 86900; 86901; 86920; 87426; 88305; J2704; J3010; J3480; J7120; P9016; G0378; U0003-CS

== ENCOUNTER 2020-01-08 09:54 | Inpatient (IN) | payer MEDICARE, OTHER ==
[2020-01-08] VITALS (19 sets, daily range): BP systolic 106–149; BP diastolic 55–81
[~2020-01-08] VITALS: Ht 180.3 cm; Wt 74.7 kg
[~2020-01-08 09:54] MED LIST changes: +SOFO1TAB3 PO
[2020-01-08 10:48] LABS: BASO # 0.1 x10^3/uL (0.0-0.2); BASO % 2 % (0-3); EOS % 0 % (0-3); LYMPH # 1.1 x10^3/uL (1.0-4.8); LYMPH % 18 % (24-48); MEAN CORPUSCULAR HEMOGLOBIN 27 pg (25-35); MEAN CORPUSCULAR HGB CONC 32 g/dL (31-37); MEAN CORPUSCULAR VOLUME 83 fL (79-100); MONO # 1.3 x10^3/uL (0.0-1.1); MONO % 22 % (0-9); NEUT # 3.4 x10^3/uL (1.8-7.7); NEUT % 58 % (31-73); PLATELET COUNT 74 x10^3/uL (140-400); RED BLOOD COUNT 2.53 x10^6/uL (4.30-5.70); RED CELL DISTRIBUTION WIDTH 23.3 % (11.5-14.5); WHITE BLOOD COUNT 5.8 x10^3/uL (4.0-11.0)
[2020-01-08 10:52] LABS: HEMOGLOBIN 6.7 g/dL (13.0-17.5)
[2020-01-08] MEDS ORDERED: IV NORMAL SALINE 1000ML BAG 1,000 ML IV ONE (11:00)
[2020-01-08] MEDS ORDERED: METOCLOPRAMIDE HCL 10 MG/2 ML VIAL. IVP ONE (11:00)
[2020-01-08] MEDS ORDERED: LIDO:MAALOX 1:1 20 ML SINGLE DOSE. SWSW ONE (11:00)
[2020-01-08 11:01] LABS: CALCIUM 7.9 mg/dL (8.5-10.1); CREATININE 0.9 mg/dL (0.7-1.3)
[2020-01-08 11:10] LABS: ALBUMIN 2.3 g/dL (3.4-5.0); ALBUMIN/GLOBULIN RATIO 0.6 (1.0-1.7); MAGNESIUM 1.4 mg/dL (1.8-2.4); TOTAL BILIRUBIN 3.2 mg/dL (0.2-1.0); TOTAL PROTEIN 5.9 g/dL (6.4-8.2)
[2020-01-08 11:18] LABS: % LYMPHS 12 % (24-48); % MONOS 14 % (0-10); % SEGS 74 % (35-66); PLT ESTIMATE DECREASED (ADEQUATE); POLYCHROMASIA SLIGHT
[2020-01-08 11:19] LABS: ANISOCYTOSIS MOD; OVALOCYTES FEW; TARGET CELLS FEW; TEAR DROP CELLS OCC
[2020-01-08] MEDS ORDERED: MAGNESIUM SULFATE 2GM 50 ML IV ONE (11:30)
[2020-01-08] MEDS ORDERED: PANTOPRAZOLE IV PUSH 40 MG VIAL. IVP ONE (11:45)
[2020-01-08] MEDS ORDERED: ONDANSETRON PF 4 MG/2 ML VIAL. IV PRN (14:30)
[2020-01-08 14:32] LABS: PROTHROMBIN TIME PATIENT 22.9 SEC (11.7-14.0)
--- NOTE | 2020-01-08 14:53 | EKG ---
[facility] [address] [place] [address] Test Date: 2020-01-08 Test Time: 10:16:58 Pat Name: KAL GUERRERO Department: Room: Gender: M Clinical Technologist: : 1960 Requested By: DARLIN CARTWRIGHT Order Number: [id number] Reading MD: Measurements Intervals [place] Rate: 129 P: -56 UT: 116 QRS: 5 QRSD: 74 T: 45 QT: 336 QTc: 494 Interpretive Statements SUPRAVENTRICULAR RHYTHM QRS(T) CONTOUR ABNORMALITY CONSIDER ANTEROSEPTAL INFARCT POSSIBLY ABNORMAL ECG RI6.02 No previous ECG available for comparison
--- NOTE | 2020-01-08 15:28 | PHYS DOC ---
Past Medical History Past Medical History: Gallstones, Hepatitis, Other Additional Past Medical Histor: Esophageal Varicies, Cirrohsis, Hep. C, tibial plateau fx Past Surgical History: Appendectomy, Other Additional Past Surgical Histo: Left Knee, L4-L5 surgery, Paracentesis approx. every 3mo Smoking Status: Current Every Day Smoker Alcohol Use: Sober Drug Use: None General Adult EDM: Chief Complaint: NAUSEA/VOMITING/DIARRHA HPI: HPI: Patient is a 59 year old male who was brought here by EMS due to nausea vomiting and diarrhea. Patient said he noted blood in his stool when he has diarrhea. That was yesterday. Patient also said he vomiting some blood as well. Patient was admitted here on January 01, 2020 for the same symptom, he was seen by GI, had EGD done showed severe esophagitis. Patient was discharged home on January 02. Patient claimed that he does not do alcohol drug or anything like that however from the records show that he was an alcoholic, he denies drinking any alcohol today. Patient became upset when asking about his drinking problem. Patient feels very anxious and agitated. Patient said he is not on any blood thinner. Patient denies any cough, no chest pain. Patient said he had a fever this morning and did take some ibuprofen. Patient was tested negative for COVID-19 yesterday per patient. Review of Systems: Review of Systems: Constitutional: Denies fever or chills. [] Eyes: Denies change in visual acuity. [] HENT: Denies nasal congestion or sore throat. [] Respiratory: Denies cough or shortness of breath. [] Cardiovascular: Denies chest pain or edema. [] GI: Denies abdominal pain, positive for nausea vomiting and blood in his diarr hea. : Denies dysuria. [] Musculoskeletal: Denies back pain or joint pain. [] Integument: Denies rash. [] Neurologic: Denies headache, focal weakness or sensory changes. [] Endocrine: Denies polyuria or polydipsia. [] Lymphatic: Denies swollen glands. [] Psychiatric: Denies depression, positive for anxiety. Heart Score: Risk Factors: Risk Factors: DM, Current or recent (<one month) smoker, HTN, HLP, family history of CAD, obesity. Risk Scores: Score 0 - 3: 2.5% MACE over next 6 weeks - Discharge Home Score 4 - 6: 20.3% MACE over next 6 weeks - Admit for Clinical Observation Score 7 - 10: 72.7% MACE over next 6 weeks - Early Invasive Strategies Current Medications: Current Medications Medications (Trade) Dose Ordered Sig/Sol Start Time Stop Time Status Last Admin Dose Admin Lorazepam (Ativan Inj) 2 mg 1X ONCE 01/08/20 14:15 01/08/20 14:16 DC Magnesium Sulfate 50 ml @ 25 mls/hr 1X ONCE 01/08/20 11:30 01/08/20 13:29 DC 01/08/20 11:47 25 MLS/HR Metoclopramide HCl (Reglan Vial) 10 mg 1X ONCE 01/08/20 11:00 01/08/20 11:01 DC 01/08/20 10:48 10 MG Multi-Ingredient Mouthwash/Gargle (Gi Cocktail) 20 ml 1X ONCE 01/08/20 11:00 01/08/20 11:01 DC 01/08/20 10:49 20 ML Pantoprazole Sodium (PROTONIX VIAL for IV PUSH) 40 mg 1X ONCE 01/08/20 11:45 01/08/20 11:46 DC 01/08/20 11:48 40 MG Sodium Chloride 1,000 ml @ 1,000 mls/hr 1X ONCE 01/08/20 11:00 01/08/20 11:59 DC 01/08/20 10:51 1,000 MLS/HR Allergies: Allergies: Allergies Coded Allergies Type Severity Reaction Last Updated Verified No Known Drug Allergies 01/01/20 No Physical Exam: PE: Constitutional: Well developed, well nourished, mild acute distress, non-toxic appearance. [] HENT: Normocephalic, atraumatic, bilateral external ears normal, oropharynx moist, no oral exudates, nose normal. [] Eyes: PERRLA, EOMI, conjunctiva normal, no discharge. [] Neck: Normal range of motion, no tenderness, supple, no stridor. [] Cardiovascular: Sinus tachycardia regular rhythm, no murmur [] Lungs & Thorax: Bilateral breath sounds clear to auscultation [] Abdomen: Bowel sounds normal, soft, no tenderness, no masses, no pulsatile masses. [] Skin: Warm, dry, diffuse dry scaly skin rash due to chronic eczema and psoriasis. Back: No tenderness, no CVA tenderness. [] Extremities: No tenderness, no cyanosis, no clubbing, ROM intact, no edema. [] Neurologic: Alert and oriented X 3, normal motor function, normal sensory function, no focal deficits noted. [] Psychologic: Affect normal, judgement normal, appeared very anxious. Current Patient Data: Labs: Laboratory Tests Test 01/08/20 10:05 01/08/20 10:06 White Blood Count 5.8 x10^3/uL (4.0-11.0) Red Blood Count 2.53 x10^6/uL (4.30-5.70) L Hemoglobin 6.7 g/dL (13.0-17.5) *L Hematocrit 21.0 % (39.0-53.0) *L Mean Corpuscular Volume 83 fL (79-100) Mean Corpuscular Hemoglobin 27 pg (25-35) Mean Corpuscular Hemoglobin Concent 32 g/dL (31-37) Red Cell Distribution Width 23.3 % (11.5-14.5) H Platelet Count 74 x10^3/uL (140-400) L Neutrophils (%) (Auto) 58 % (31-73) Lymphocytes (%) (Auto) 18 % (24-48) L Monocytes (%) (Auto) 22 % (0-9) H Eosinophils (%) (Auto) 0 % (0-3) Basophils (%) (Auto) 2 % (0-3) Neutrophils # (Auto) 3.4 x10^3/uL (1.8-7.7) Lymphocytes # (Auto) 1.1 x10^3/uL (1.0-4.8) Monocytes # (Auto) 1.3 x10^3/uL (0.0-1.1) H Eosinophils # (Auto) 0.0 x10^3/uL (0.0-0.7) Basophils # (Auto) 0.1 x10^3/uL (0.0-0.2) Segmented Neutrophils % 74 % (35-66) H Lymphocytes % 12 % (24-48) L Monocytes % 14 % (0-10) H Platelet Estimate Decreased (ADEQUATE) Polychromasia Slight Anisocytosis Mod Target Cells Few Tear Drop Cells Occ Ovalocytes Few Sodium Level 145 mmol/L (136-145) Potassium Level 3.0 mmol/L (3.5-5.1) L Chloride Level 106 mmol/L (98-107) Carbon Dioxide Level 27 mmol/L (21-32) Anion Gap 12 (6-14) Blood Urea Nitrogen 22 mg/dL (8-26) Creatinine 0.9 mg/dL (0.7-1.3) Estimated GFR (Cockcroft-Gault) 87.0 BUN/Creatinine Ratio 24 (6-20) H Glucose Level 108 mg/dL (70-99) H Calcium Level 7.9 mg/dL (8.5-10.1) L Magnesium Level 1.4 mg/dL (1.8-2.4) L Total Bilirubin 3.2 mg/dL (0.2-1.0) H Aspartate Amino Transferase (AST) 41 U/L (15-37) H Alanine Aminotransferase (ALT) 21 U/L (16-63) Alkaline Phosphatase 61 U/L (46-116) Total Protein 5.9 g/dL (6.4-8.2) L Albumin 2.3 g/dL (3.4-5.0) L Albumin/Globulin Ratio 0.6 (1.0-1.7) L Lipase 52 U/L (73-393) L Ethyl Alcohol Level 109 mg/dL (0-10) H Prothrombin Time 22.9 SEC (11.7-14.0) H Prothrombin Time INR 2.1 (0.8-1.1) H Activated Partial Thromboplast Time 47 SEC (24-38) H Laboratory Tests 01/08/20 10:05 Laboratory Tests 01/08/20 10:05 Vital Signs: Vital Signs Date Time Temp Pulse Resp B/P (MAP) Pulse Ox O2 Delivery O2 Flow Rate FiO2 01/08/20 14:36 98.4 109 20 136/81 98.4 01/08/20 14:30 98 Room Air EKG: EKG: [] Radiology/Procedures: Radiology/Procedures: [] Course & Med Decision Making: Course & Med Decision Making Pertinent Labs and Imaging studies reviewed. (See chart for details) Patient is a 59-year-old male who was found to be anemic due to upper GI bleeding, he has history of alcohol abuse, cirrhosis, hepatitis C, esophagitis. Patient continued to drink alcohol, patient claimed that he did not drink any alcohol today, his alcohol level around 100. He is symptomatically anxious tachycardic with alcohol withdrawal symptoms. Did not observe any blood in his vomitus while he was in the ER. Patient was found to be anemic, he was given 1 unit of red blood cells in the ER, patient was found to be hypokalemic, hypomagnesemia. Patient was given magnesium supplement in the ER, discussed with Dr. Duarte who agreed to admit the patient to intensive care unit, consult GI. Dwayne Disclaimer: Dwayne Disclaimer: This electronic medical record was generated, in whole or in part, using a voice recognition dictation system. Departure Departure Impression: Primary Impression: Upper GI bleed Additional Impressions: Acute blood loss anemia Alcohol withdrawal Hypomagnesemia Hypokalemia Disposition: ADMITTED INPATIENT Admitting Physician: Madi. Guadarrama Condition: STABLE Referrals: LUCILA MCCLURE JR, MD (PCP) Justicifation of Admission Dx: Justifications for Admission: Justification of Admission Dx: Yes (gi bleeding) DARLIN CARTWRIGHT DO Jan 08, 2020 15:28
--- NOTE | 2020-01-08 15:57 | PDOC2 ---
GI CONSULT Date of Service: DATE: 01/08/20 TIME: 15:39 Reason For Consult: GI bleed HPI: HPI: 59 y/o male who we saw last week for similar complaints. To ER this time w/ vomiting - "copious amounts of blood" on Tuesday after lunch, "then turned black," and "now just liquid." Also reports dark stools. Chronic pain - "that's not why I came because I have copious amounts of pain meds at home." D/w nurse - vitals stable, no bleeding, vomiting, or diarrhea here. +alcohol - "I don't drink that much!" Says couldn't take regular meds due to vomiting. H/o Hep C/alcoholic cirrhosis w/ anemia, thrombocytopenia, coagulopathy, and recurrent ascites. Says started on Epclusa through hepatology (Dr. Camargo). Also goes to [facility] because that's his favorite hospital but lives in [place] so also goes to [facility]. EGD 09/10/[address] Ambriz: grade I-II non-bleeding distal esophageal varices, mild portal gastropathy w/o bleeding, no gastric varices, non-bleeding pre- pyloric Joceline but old melena in stomach, inflammation in duodenum (no ulcers or varices) EGD 12/15/[address] Taveras: no large esophageal varices seen - maybe grade I at best, no apparent M-W tear, moderate blood in fundus - unable to visualize well - only fresh blood seen in this area, rest of stomach with scattered blood but no lesions seen, normal duodenum. *pt uncooperative throughout exam* EGD 12/19/[address] Taveras: small grade I at best esophageal varices distally, small varix in cardia with red spots - suspect this may have been the cause of recent bleed, diffuse portal gastropathy, persistent ulcer measuring 6-8mm (described by Dr. Mane at [facility] [address] Ambriz here in August) with deformity of prepyloric antrum and pylorus (biopsy: reactive gastropathy with focal mild acute and chronic inflammation - negative for H. pylori and malignancy), some deformity in duodenal bulb w/o ulcer and second portion normal. Doppler US 11/2018: spleen is mildly enlarged, splenic vein is patent in the region of splenic hilum and mid and proximal segments of the splenic vein are not visualized due to underlying bowel gas. EGD by Dr. Mckeon in 2019: and small varices. S/p TIPS @ [facility] in 03/2019. EGD 12/03/[address] Jori Nam @ [facility] for hematemesis showed small esophageal varices, semi pudunculated polyp in pylorus w/ ulceration and stigmata of recent bleeding, chronic gastritis in whole stomach w/ nodularity, duodenal diverticulum in second portion. Pending biopsy results of polyp, recommendation for referral for polypectomy vs repeat endoscopy to asses for ulcer healing, BID PPI, and outpt colonoscopy. EGD 01/01/[address] Taveras for UGI bleeding: severe erosive esophagitis (distal third), no varices, no M-W tear (but difficult to exclude with the esophagitis), ulcerated 15mm pre-pyloric polyp as described at [facility] - ulcer 6-8mm and clean-based w/o stigmata of recent bleeding or high-risk features, diverticulum second portion of duodenum. Biopsy of polyp still pending. H/o cholelithiasis. On pantoprazole QD. Reports normal colonoscopy at age 51. PMH: PMH: psoriasis, SVT lumbar fusion, TIPS, appendectomy, left knee surgery FH: Family History: No pertinent hx Social History: ALCOHOL: heavy ROS: GEN: Denies fevers, chills, sweats HEENT: Denies blurred vision, sore throat CV: Denies chest pain RESP: Denies shortness of air, cough GI: Per HPI : Denies hematuria, dysuria ENDO: Denies weight changes NEURO: Denies confusion, dizziness MSK: "pain all over" SKIN: Denies jaundice, pruritus Vitals: Vitals: Vital Signs Date Time Temp Pulse Resp B/P (MAP) Pulse Ox O2 Delivery O2 Flow Rate FiO2 01/08/20 14:36 98.4 109 20 136/81 98.4 01/08/20 14:30 98 Room Air Labs: Labs: Laboratory Tests Test 01/08/20 10:05 01/08/20 10:06 White Blood Count 5.8 x10^3/uL (4.0-11.0) Red Blood Count 2.53 x10^6/uL (4.30-5.70) Hemoglobin 6.7 g/dL (13.0-17.5) Hematocrit 21.0 % (39.0-53.0) Mean Corpuscular Volume 83 fL (79-100) Mean Corpuscular Hemoglobin 27 pg (25-35) Mean Corpuscular Hemoglobin Concent 32 g/dL (31-37) Red Cell Distribution Width 23.3 % (11.5-14.5) Platelet Count 74 x10^3/uL (140-400) Neutrophils (%) (Auto) 58 % (31-73) Lymphocytes (%) (Auto) 18 % (24-48) Monocytes (%) (Auto) 22 % (0-9) Eosinophils (%) (Auto) 0 % (0-3) Basophils (%) (Auto) 2 % (0-3) Neutrophils # (Auto) 3.4 x10^3/uL (1.8-7.7) Lymphocytes # (Auto) 1.1 x10^3/uL (1.0-4.8) Monocytes # (Auto) 1.3 x10^3/uL (0.0-1.1) Eosinophils # (Auto) 0.0 x10^3/uL (0.0-0.7) Basophils # (Auto) 0.1 x10^3/uL (0.0-0.2) Segmented Neutrophils % 74 % (35-66) Lymphocytes % 12 % (24-48) Monocytes % 14 % (0-10) Platelet Estimate Decreased (ADEQUATE) Polychromasia Slight Anisocytosis Mod Target Cells Few Tear Drop Cells Occ Ovalocytes Few Sodium Level 145 mmol/L (136-145) Potassium Level 3.0 mmol/L (3.5-5.1) Chloride Level 106 mmol/L (98-107) Carbon Dioxide Level 27 mmol/L (21-32) Anion Gap 12 (6-14) Blood Urea Nitrogen 22 mg/dL (8-26) Creatinine 0.9 mg/dL (0.7-1.3) Estimated GFR (Cockcroft-Gault) 87.0 BUN/Creatinine Ratio 24 (6-20) Glucose Level 108 mg/dL (70-99) Calcium Level 7.9 mg/dL (8.5-10.1) Magnesium Level 1.4 mg/dL (1.8-2.4) Total Bilirubin 3.2 mg/dL (0.2-1.0) Aspartate Amino Transf (AST/SGOT) 41 U/L (15-37) Alanine Aminotransferase (ALT/SGPT) 21 U/L (16-63) Alkaline Phosphatase 61 U/L (46-116) Total Protein 5.9 g/dL (6.4-8.2) Albumin 2.3 g/dL (3.4-5.0) Albumin/Globulin Ratio 0.6 (1.0-1.7) Lipase 52 U/L (73-393) Ethyl Alcohol Level 109 mg/dL (0-10) Prothrombin Time 22.9 SEC (11.7-14.0) Prothromb Time International Ratio 2.1 (0.8-1.1) Activated Partial Thromboplast Time 47 SEC (24-38) Allergies: Coded Allergies: No Known Drug Allergies (Unverified , 01/01/20) Medications: Current Medications Medications (Trade) Dose Ordered Sig/Sol Route PRN Reason Start Time Stop Time Status Last Admin Dose Admin Sodium Chloride 1,000 ml @ 1,000 mls/hr 1X ONCE IV 01/08/20 11:00 01/08/20 11:59 DC 01/08/20 10:51 Metoclopramide HCl (Reglan Vial) 10 mg 1X ONCE IVP 01/08/20 11:00 01/08/20 11:01 DC 01/08/20 10:48 Multi-Ingredient Mouthwash/Gargle (Gi Cocktail) 20 ml 1X ONCE SWSW 01/08/20 11:00 01/08/20 11:01 DC 01/08/20 10:49 Magnesium Sulfate 50 ml @ 25 mls/hr 1X ONCE IV 01/08/20 11:30 01/08/20 13:29 DC 01/08/20 11:47 Lorazepam (Ativan Inj) 2 mg 1X ONCE IVP 01/08/20 11:30 01/08/20 11:31 DC 01/08/20 11:46 Pantoprazole Sodium (PROTONIX VIAL for IV PUSH) 40 mg 1X ONCE IVP 01/08/20 11:45 01/08/20 11:46 DC 01/08/20 11:48 Imaging: Imaging: - PE: GEN: was asleep - completely under covers HEENT: Atraumatic, PERRL LUNGS: clear anteriorly HEART: mildly tachycardic ABD: quiet, soft, doesn't seem uncomfortable EXTREMITY: No edema SKIN: scaly plaque NEURO/PSYCH: A & O 3, grumpy A/P: A/P: Recurrent hematemesis, melena, abd pain - EGD last week as above Anemia, thrombocytopenia, coagulopathy, elevated LFTs, hypokalemia Hep C/alcoholic cirrhosis s/p TIPS - ?on Epclusa w/ [facility] H/o GERD, PUD, gastric polyp, duodenal diverticulum CRC screen - reportedly normal age 51 Cholelithiasis +alcohol -- Reviewed w/ Dr. Taveras - probably okay to transfer out of ICU w/ stable vitals. Still drinking. NPO, PPI drip, monitor Hgb, give FFP and vit K. IVF per primary. Plan for another EGD in a.m., will recheck COVID per protocol. ANTOINETTE SALDANA Jan 08, 2020 15:57
[2020-01-08] MEDS ORDERED: PHYTONADIONE 10 MG/ML AMPUL. SQ ONE (16:30)
[2020-01-08] MEDS: PANTOPRAZOLE SODIUM IV DRIP 80 MG in IV NORMAL SALINE 100ML 100 ML IV SCH (16:42)
[2020-01-08] MEDS: IV NORMAL SALINE 1000ML BAG 1,000 ML IV SCH (16:43)
[2020-01-08] MEDS ORDERED: HALOPERIDOL LACTATE 5 MG/ML VIAL. IVP PRN (17:00)
[2020-01-08] MEDS: POTASSIUM CHLORIDE 10MEQ 100 ML IV SCH ×2 (17:27→18:24)
--- NOTE | 2020-01-08 17:37 | NUR ---
Patient arrived on unit at 1515 accompanied by ED RN. Patient is alert and oriented x4, able to answer admission questions when asked. Patient denied pain or nausea, has occasional hiccups. Stated his hematemesis started Tuesday at 1200, but has since resolved, patient has only been able to have dry heaves since then. Patient did say he has been having bloody stool that started this morning. Says his last drink was "a while ago". Notified ANGELES Beckford, of consult, orders to recheck H&H, give 1 unit FFP, 10 mg Vitamin K, and keep NPO for EGD in the morning. Stat surgical Covid swab sent, patient is not in isolation at the moment. Dr. Duarte notified of admission, orders received and in the computer. Patient was going to update family of admission. Will continue to monitor.
[2020-01-08 19:44] LABS: HEMATOCRIT 19.3 % (39.0-53.0); HEMOGLOBIN 6.3 g/dL (13.0-17.5)
[2020-01-08] MEDS ORDERED: diphenhydrAMINE HCL 25 MG CAPSULE PO PRN (20:00)
[2020-01-08] MEDS ORDERED: diphenhydrAMINE ORAL ELIXIR 12.5 MG/5 ML ML PO PRN (20:00)
[2020-01-08] MEDS ORDERED: ACETAMINOPHEN 325 MG TABLET. PO PRN (20:00)
[2020-01-08] MEDS: MULTIVIT INFUSN,ADULT 4,VIT K 10 ML, THIAMINE INJ 100 MG, FOLIC ACID INJ 1 MG in IV NOR... IV SCH (22:47)
[2020-01-09] VITALS (19 sets, daily range): BP systolic 113–160; BP diastolic 58–93
[2020-01-09] MEDS: PANTOPRAZOLE SODIUM IV DRIP 80 MG in IV NORMAL SALINE 100ML 100 ML IV SCH (00:45)
[2020-01-09] MEDS: METOCLOPRAMIDE HCL 10 MG/2 ML VIAL. IVP PRN ×3 (02:49→15:13)
[2020-01-09] MEDS: POTASSIUM CHLORIDE 10MEQ 100 ML IV SCH ×2 (03:07→04:27)
[2020-01-09] MEDS: IV NORMAL SALINE 1000ML BAG 1,000 ML IV SCH (07:33)
--- NOTE | 2020-01-09 08:00 | NUR ---
Updated GI re: plt count 47 Pt stable, no stools or vomitting VSS Asked for Ativan and reglan and given
[2020-01-09 08:08] LABS: HEMATOCRIT 27.6 % (39.0-53.0); HEMOGLOBIN 9.1 g/dL (13.0-17.5); RED BLOOD COUNT 3.23 x10^6/uL (4.30-5.70); WHITE BLOOD COUNT 4.2 x10^3/uL (4.0-11.0)
[2020-01-09 08:44] LABS: ALBUMIN 2.1 g/dL (3.4-5.0); ALBUMIN/GLOBULIN RATIO 0.8 (1.0-1.7); CALCIUM 7.4 mg/dL (8.5-10.1); CREATININE 0.8 mg/dL (0.7-1.3); GFR 99.6; MAGNESIUM 1.7 mg/dL (1.8-2.4); POTASSIUM 3.7 mmol/L (3.5-5.1); TOTAL BILIRUBIN 4.6 mg/dL (0.2-1.0); TOTAL PROTEIN 4.9 g/dL (6.4-8.2)
[2020-01-09 09:49] LABS: PROTHROMBIN TIME PATIENT 22.4 SEC (11.7-14.0)
--- NOTE | 2020-01-09 10:23 | NUR ---
To GI lab per cart in stable cond. Protonix gtt 2 IVs
[2020-01-09] MEDS ORDERED: LIDOCAINE 2% PF 5 ML VIAL. ONE (11:17)
[2020-01-09] MEDS ORDERED: PROPOFOL 10 MG/ML (20ML) VIAL. IV ONE (11:17)
--- NOTE | 2020-01-09 11:21 | PDOC4 ---
PROCEDURE Procedure EGD Indication: recent hematemesis Meds: per anesthesia Findings: E--Erosive changes entire esophagus, some probably from repeated emesis. Worse distally. No M-W, varices seen. G--Diffuse portal gastropathy. No varices. Ulcerated polyp again seen in pylorus. Ulcer base clean. D--Stalk of polyp actually extends to immediate post-pyloric area. Patchy erythema, bulb. Second portion normal. Tati. well. IMP: Severe esophagitis persists. Obstructed from the polyp with repeated emesis? Actually duodenal polyp, ulcerated, prolapsing into stomach, but with no signs of bleeding. Portal gastropathy. --Bleeding from esophagus and portal gastropathy? Doesn't seem to be from the polyp. REC: PPI Clears ok. If could correct coagulopathy and thrombocytopenia, could consider removing the polyp but not possible now. JESSICA LÓPEZ MD Jan 09, 2020 11:21
--- NOTE | 2020-01-09 11:30 | NUR ---
Stable post procedure. VSS swallow intact water offered
--- NOTE | 2020-01-09 11:57 | NUR ---
SS following for discharge planning. SS reviewed pt chart and discussed with pt RN. Pt is from home and is currently on room air. COVID19 negative. Pt having EGD today. PAT team referral made for ETOH. Pt on clear liquid diet. SS will continue to follow for discharge planning.
--- NOTE | 2020-01-09 13:17 | HP ---
ADMIT DATE: 01/08/2020 HISTORY OF PRESENT ILLNESS: The patient is a 59-year-old male patient who was brought to the Emergency Room by Emergency Medical Service personnel due to nausea, vomiting, and diarrhea. He has noted blood in his stool when he has diarrhea that was started on Tuesday. He said also he has been vomiting some blood as well. The patient was here on 01/01/2020 for similar symptoms and was seen by GI and had EGD, which showed severe esophagitis. He was discharged home on 01/02. He claimed that he does not do any alcohol, drugs or anything like that; however, from the records, showed that he was an alcoholic, but denied drinking any alcohol recently. He was very anxious and agitated and initial evaluation showed his hemoglobin was 6.7 and hematocrit 21, for which he was admitted to the ICU and was transfused 2 units of packed RBCs and we did consult the Gastroenterology team for assistance with management. He was started on Protonix together with IV fluid. PAST MEDICAL HISTORY: Significant for hepatitis C that was diagnosed in 1986, was treated at that time with interferon and ribavirin according to him, had relapsed again in 2019 and was seen at [facility] and has been on treatment for that. He is also known to have liver cirrhosis, portal hypertension, esophageal varices. He has had about 30 paracenteses and after he underwent TIPS procedure in 2019, has not had any further ascites. He is known to have generalized osteoarthritis and psoriasis. On his last admission, he was found to have severe esophagitis. He has also prepyloric polyp, ulcerated, but with no signs of bleeding at that time as well as duodenal diverticulum. PAST SURGICAL HISTORY: Significant for appendectomy, vasectomy, L4-L5 vertebral fusion, left total knee arthroplasty, multiple esophagogastroduodenoscopies, and TIPS procedure. ALLERGIES: He has no known drug allergies. MEDICATIONS: He is currently on Protonix 40 mg once a day, Zofran 4 mg every 4 hours, midodrine 10 mg 3 times a day, metoprolol 25 mg twice a day, and ferrous sulfate 325 mg twice a day. FAMILY HISTORY: He has 1 brother and 1 sister, all younger and healthy. His father at the age of 90 with complication of obesity. Mother is still alive at the age of 88 and seemingly healthy. SOCIAL HISTORY: He is , has 2 sons, one in skilled nursing and lives with him. He smokes only 2 cigarettes a day. He used to smoke a pack a day and quit doing that 5 years ago He does not drink alcohol or use any recreational drugs. He is currently retired and on disability. 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 REVIEW OF SYSTEMS: As per history of present illness. PHYSICAL EXAMINATION: GENERAL: On arrival to the Emergency Room, he looked pale, but no jaundice, cyanosis, or thyromegaly. No jugular venous distention. No limb edema. VITAL SIGNS: His heart rate was 83, blood pressure was 126/64, respiratory rate was 25, temperature was 99, and oxygen saturation was initially 76% on BiPAP. Eventually, he was found to be 100% on room air. HEAD, EYES, EARS, NOSE, AND THROAT: Normocephalic, atraumatic. NECK: Supple. HEART: Showed normal first and second heart sounds. No gallop, rub, or murmur. CHEST: Clear to auscultation. No crepitation or rhonchi. ABDOMEN: Distended, soft, nontender. No guarding or rigidity. No organomegaly. All hernial orifices intact. Bowel sounds normal. NEUROLOGIC: He was awake, alert, responding appropriately. All cranial nerves intact. He moves extremities without difficulty. He has no flapping tremor. LABORATORY DATA: His lab work on arrival showed a white cell count 5800, hemoglobin 6.7, hematocrit 21, MCV 83, and platelet count of 74,000. His chemistry showed a serum sodium of 145, potassium 3, chloride 106, bicarbonate 27, anion gap of 12, BUN 22, creatinine 0.9, estimated GFR was 87 mL per minute, his glucose 107, calcium was 7.9, magnesium was 1.4. Total bilirubin 3.2. AST, ALT, alkaline phosphatase were normal. Total protein was 5.9, albumin 2.3. Lipase was 52. His prothrombin time was 22.4, INR of 2. His SARS COVID antigen rapid test was negative. ASSESSMENT: He was basically admitted with gastrointestinal bleed with acute blood loss anemia, hypomagnesemia, hypokalemia, and questionable alcohol withdrawal. His blood alcohol level was 109 mg/dL. PLAN: To obviously start him on IV fluid to replenish potassium and magnesium. Type and cross and transfuse 2 units of packed RBCs. Keep the patient n.p.o. Consult the Gastroenterology team. Also continue with Protonix drip and start him on alcohol withdrawal protocol. KELSIE JUNIOR MD DR: PACO/sruthi JOB#: [id number] / [id number]
--- NOTE | 2020-01-09 13:54 | NUR ---
SS following up with discharge planning. Chela from the PAT team met with pt and discussed ETOH. Pt reported drinking one time per week and reported no concerns around his alcohol use but did accept resources for outpatient services at [facility]. SS will continue to follow for discharge planning.
--- NOTE | 2020-01-09 14:55 | PN ---
DATE: 01/09/2020 SUBJECTIVE: The patient was admitted yesterday with recurrent bouts of nausea, vomiting, diarrhea, also hematemesis and melena. He was admitted to the ICU, was started on IV fluid and has received 2 units of packed RBCs. He was seen by the Gastroenterology team and has had an upper GI endoscopy, which basically showed the patient has severe esophagitis persists. He has obstructed from the polyp with repeated emesis actually duodenal polypoid ulcerated prolapsing into the stomach, with no sign of bleeding, he has also portal gastropathy bleeding from esophageal and partial aborted gastropathy. Does not seem to be coming from the polyp and the patient was started on clear liquids. Dr. Taveras said if we could correct the coagulopathy and thrombocytopenia, could consider removing the polyp, but not possible now, when I saw him immediately after his upper GI endoscopy he was still somewhat lethargic, but arousable. Did complain of pain. PHYSICAL EXAMINATION: GENERAL: When I examined him, he looked pale, nonjaundiced, cyanosis or thyromegaly. No jugular venous distention. No limb edema. VITAL SIGNS: His heart rate was 89, blood pressure 152/74, temperature was 98.6, respiratory rate 20, and oxygen saturation was 97% on 3 liters oxygen by nasal cannula. HEAD, EYES, EARS, NOSE AND THROAT: Normocephalic, atraumatic. NECK: Supple. HEART: Showed normal first and second heart sounds. No gallop or murmur. CHEST: Clear to auscultation. No crepitation or rhonchi. ABDOMEN: Distended, soft, nontender. NEUROLOGIC: He was lethargic, but arousable. All cranial nerves are intact. He moves extremities without difficulty. His intake over the last 24 hours was 4050, output was 550. LABORATORY DATA: His lab work this morning showed his white cell count was 4200, hemoglobin 9.1, hematocrit 27.6, MCV 86 and platelet count 47,000. His chemistry showed a serum sodium 143, potassium 3.7, chloride 110, bicarbonate 28, anion gap of 5, BUN 13, creatinine 0.8, estimated GFR was 99 mL per minute. His glucose was 82, calcium was 7.4, magnesium was 1.7. Total bilirubin 4.6. AST, ALT, alkaline phosphatase were normal. Total protein 4.9, albumin 2.1. His prothrombin time was 22.4, INR of 2. ASSESSMENT: 1. Upper gastrointestinal bleed. 2. Acute blood loss anemia for which he received 2 units of packed RBCs. 3. Alcohol withdrawal. 4. Hypomagnesemia. 5. Hypokalemia. 6. Chronic hepatitis C with liver cirrhosis and portal hypertension and apparently has no esophageal varices, has had no ascites since he has TIPS according to him. 7. Other medical problems include generalized osteoarthritis, and psoriasis. PLAN: My plan is to obviously continue with Protonix. Continue with alcohol withdrawal protocol. Continue with banana bag and fentanyl citrate 25 mcg IV every 3 hours. KELSIE JUNIOR MD DR: PACO/sruthi JOB#: [id number] / [id number]
[2020-01-09] MEDS: fentaNYL PF VIAL 100 MCG/2 ML VIAL IVP PRN ×2 (15:41→21:48)
[2020-01-09 15:51] LABS: HEMATOCRIT 27.9 % (39.0-53.0); HEMOGLOBIN 9.3 g/dL (13.0-17.5)
[2020-01-09] MEDS: PANTOPRAZOLE 40 MG TABLET.DR. PO SCH (17:35)
--- NOTE | 2020-01-09 18:09 | NUR ---
VSS. Pt with freq retching but no emesis. Some restlessness noted. Ativan and Reglan given and Fent as pt requested. Tati sips of cl liq. Dark stool smear
[2020-01-09] MEDS: MULTIVIT INFUSN,ADULT 4,VIT K 10 ML, THIAMINE INJ 100 MG, FOLIC ACID INJ 1 MG in IV NOR... IV SCH (21:11)
[2020-01-09 21:57] LABS: HEMATOCRIT 28.1 % (39.0-53.0); HEMOGLOBIN 9.3 g/dL (13.0-17.5)
[2020-01-10] VITALS (7 sets, daily range): BP systolic 97–162; BP diastolic 47–92
[2020-01-10 05:42] LABS: HEMATOCRIT 29.9 % (39.0-53.0); HEMOGLOBIN 9.9 g/dL (13.0-17.5); RED BLOOD COUNT 3.5 x10^6/uL (4.30-5.70); RED CELL DISTRIBUTION WIDTH 19.4 % (11.5-14.5); WHITE BLOOD COUNT 4.1 x10^3/uL (4.0-11.0)
[2020-01-10 06:10] LABS: ALBUMIN 2.3 g/dL (3.4-5.0); ALBUMIN/GLOBULIN RATIO 0.7 (1.0-1.7); CALCIUM 7.9 mg/dL (8.5-10.1); CREATININE 0.8 mg/dL (0.7-1.3); GFR 99.6; POTASSIUM 3.5 mmol/L (3.5-5.1); TOTAL PROTEIN 5.4 g/dL (6.4-8.2)
[2020-01-10] MEDS: PANTOPRAZOLE 40 MG TABLET.DR. PO SCH ×2 (09:13→16:08)
--- NOTE | 2020-01-10 10:44 | PN ---
DATE: 01/10/2020 SUBJECTIVE: The patient is resting flat, comfortably, in no apparent distress. Has no further episodes of nausea, vomiting. No diarrhea. No hematemesis, melena, or hematochezia. His H and H actually steadily rising and this morning at 5:00, hemoglobin was 9.9 and hematocrit 29.9. He continues to have thrombocytopenia with platelet count of 53,000 and also has coagulopathy with a prothrombin time 22.4, INR of 2. PHYSICAL EXAMINATION: GENERAL: When I examined him this morning, he looked pale. No jaundice, cyanosis or thyromegaly. No jugular venous distention or limb edema. VITAL SIGNS: His heart rate was 98, blood pressure was 125/91, temperature was 98.5, respiratory rate was 24, and oxygen saturation was 98% on room air. HEENT: Showed normocephalic, atraumatic. NECK: Supple. CARDIAC: Normal first and second heart sounds. No gallop or murmur. CHEST: Clear to auscultation. No crepitation or rhonchi. ABDOMEN: Distended, soft, nontender. No guarding or rigidity. No organomegaly. All hernial orifice intact. Bowel sounds normal. NEUROLOGIC: He is awake, alert, responding appropriately. All cranial nerves are intact. He moves extremities without difficulty. Ambulates without assistance or assistive devices. His intake over the last 24 hours was 4050, output was 550. LABORATORY WORK: This morning showed a white cell count 4100, hemoglobin 9.9, hematocrit was 29.9, his MCV was 86 and platelet of 53,000. His chemistry showed a serum sodium of 140, potassium 3.5, chloride was 106, bicarbonate 29, anion gap of 5, BUN 8, creatinine 0.8, estimated GFR was 99 mL per minute. His glucose was 82, calcium was 7.9, total bilirubin is 5. AST, ALT, alkaline phosphatase were normal. Total protein was 5.4, albumin 2.3. ASSESSMENT: 1. Upper gastrointestinal bleeding. 2. Acute blood loss anemia, for which he received 2 units of packed RBCs. His hemoglobin and hematocrit is about 10 and 30 this morning and rising. 3. Alcohol withdrawal. 4. Hypomagnesemia, resolved. 5. Hypokalemia, resolved. 6. Chronic hepatitis C with liver cirrhosis and portal hypertension. He apparently has no esophageal varices, had severe esophagitis. He has had 30 paracentesis before, none after he had TIPS procedure. 7. Generalized osteoarthritis and psoriasis. PLAN: Continue with Protonix. Continue with alcohol withdrawal protocol. Continue with banana bag and fentanyl citrate. I spoke with the nurse practitioner, GI service and if Dr. Taveras wants to correct his coagulopathy and to do the polypectomy, we can proceed with that. Otherwise, I will check his H and H again at around 12:00 and if it remains the same or higher, he can be discharged home. KELSIE JUNIOR MD DR: PACO/sruthi JOB#: [id number] / [id number]
[2020-01-10] MEDS: METOCLOPRAMIDE HCL 10 MG/2 ML VIAL. IVP PRN (10:45)
[2020-01-10 11:44] LABS: HEMATOCRIT 27.5 % (39.0-53.0); HEMOGLOBIN 9.1 g/dL (13.0-17.5)
--- NOTE | 2020-01-10 12:38 | PDOC ---
Date of Service: DATE: 01/10/20 TIME: 12:32 Subjective: Subjective: Has nausea and upper abd discomfort but really really hungry and wants to eat. ?melena last night Objective: Objective: D/w Dr. Duarte a couple times today. Vital Signs: Vital Signs Date Time Temp Pulse Resp B/P (MAP) Pulse Ox O2 Delivery O2 Flow Rate FiO2 01/10/20 11:00 98.3 102 24 126/70 (88) 97 Room Air 98.3 01/09/20 11:30 3 Labs: Laboratory Tests Test 01/09/20 15:35 01/09/20 21:33 01/10/20 05:10 01/10/20 11:30 Hemoglobin 9.3 g/dL 9.3 g/dL 9.9 g/dL 9.1 g/dL Hematocrit 27.9 % 28.1 % 29.9 % 27.5 % White Blood Count 4.1 x10^3/uL Red Blood Count 3.50 x10^6/uL Mean Corpuscular Volume 86 fL Mean Corpuscular Hemoglobin 28 pg Mean Corpuscular Hemoglobin Concent 33 g/dL 33 g/dL Red Cell Distribution Width 19.4 % Platelet Count 53 x10^3/uL Sodium Level 140 mmol/L Potassium Level 3.5 mmol/L Chloride Level 106 mmol/L Carbon Dioxide Level 29 mmol/L Anion Gap 5 Blood Urea Nitrogen 8 mg/dL Creatinine 0.8 mg/dL Estimated GFR (Cockcroft-Gault) 99.6 BUN/Creatinine Ratio 10 Glucose Level 82 mg/dL Calcium Level 7.9 mg/dL Total Bilirubin 5.0 mg/dL Aspartate Amino Transf (AST/SGOT) 40 U/L Alanine Aminotransferase (ALT/SGPT) 16 U/L Alkaline Phosphatase 69 U/L Ammonia 34 mcmol/L Total Protein 5.4 g/dL Albumin 2.3 g/dL Albumin/Globulin Ratio 0.7 Imaging: EGD 01/08 E--Erosive changes entire esophagus, some probably from repeated emesis. Worse distally. No M-W, varices seen. G--Diffuse portal gastropathy. No varices. Ulcerated polyp again seen in pylorus. Ulcer base clean. D--Stalk of polyp actually extends to immediate post-pyloric area. Patchy erythema, bulb. Second portion normal. IMP: Severe esophagitis persists. Obstructed from the polyp with repeated emesis? Actually duodenal polyp, ulcerated, prolapsing into stomach, but with no signs of bleeding. Portal gastropathy. --Bleeding from esophagus and portal gastropathy? Doesn't seem to be from the polyp. REC: PPI Clears ok. If could correct coagulopathy and thrombocytopenia, could consider removing the polyp but not possible now. PE: GEN: NAD LUNGS: CTAB HEART: slightly tachycardic ABD: soft, vaguely tender NEURO/PSYCH: A & O 3, grumpy A/P: Recurrent hematemesis, melena, abd pain - EGD as above w/ erosive esophagitis (likely from repeated emesis), portal gastropathy, ulcerated polyp Anemia, thrombocytopenia, coagulopathy, elevated LFTs Hep C/alcoholic cirrhosis s/p TIPS -- Not able to remove polyp w/ thrombocytopenia and coagulopathy. Try advancing diet. Stop drinking. Justicifation of Admission Dx: Justifications for Admission: Justification of Admission Dx: Yes (gi bleeding) ANTOINETTE SALDANA Jan 10, 2020 12:38
--- NOTE | 2020-01-10 14:14 | NUR ---
SS following up with discharge planning. SS reviewed pt chart and discussed with pt RN. Pt is currently on room air. Pt wanting to go home. COVID19 negative. Possible discharge to home today. SS will continue to follow for discharge planning.
[2020-01-10] MEDS: NICOTINE 21MG PATCH. TD PRN (18:01)
[2020-01-10] MEDS: MULTIVIT INFUSN,ADULT 4,VIT K 10 ML, THIAMINE INJ 100 MG, FOLIC ACID INJ 1 MG in IV NOR... IV SCH (21:28)
[2020-01-11 03:00] VITALS: BP 111/61
[2020-01-11 05:42] LABS: HEMOGLOBIN 8.3 g/dL (13.0-17.5); RED BLOOD COUNT 2.94 x10^6/uL (4.30-5.70); RED CELL DISTRIBUTION WIDTH 20.4 % (11.5-14.5); WHITE BLOOD COUNT 3.8 x10^3/uL (4.0-11.0)
[2020-01-11 07:30] VITALS: BP 124/75
[2020-01-11] MEDS: PANTOPRAZOLE 40 MG TABLET.DR. PO SCH (08:41)
[2020-01-11] MEDS: NICOTINE 21MG PATCH. TD PRN (08:41)
--- NOTE | 2020-01-11 10:27 | NUR ---
SW following. Discussed with RN, pt from home, room air, soft diet, COVID-19 negative. Pt wanting to discharge home today. SW will continue to follow for any discharge planning needs.
[2020-01-11 11:00] VITALS: BP 134/78
[2020-01-11] MEDS ORDERED: LORA0.5T96 PO (11:18)
--- NOTE | 2020-01-11 11:54 | DS ---
DATE OF DISCHARGE: HOSPITAL COURSE: The patient came back again with episode of recurrent bouts of nausea, vomiting, hematemesis and melena. His H and H has dropped on arrival to 6.7 and 21 and he received 2 units of packed RBCs and his H and H has remained relatively stable, although trending slowly down. When I saw him today, he denied any nausea or vomiting, diarrhea or constipation. Denied any hematemesis, melena, or hematochezia. He is tolerating his diet, and he has apparently an appointment for upper and lower GI endoscopy next Tuesday and therefore a decision was made to discharge him home to continue with all his medication. I did give him a prescription for Ativan. PHYSICAL EXAMINATION: GENERAL: When I examined him this morning, he looked pale, but no jaundice, cyanosis or thyromegaly. No jugular venous distention. No limb edema. VITAL SIGNS: His heart rate was 96, blood pressure was 124/75, temperature was 98.5, respiratory rate was 16, and oxygen saturation was 97%. HEAD, EYES, EARS, NOSE AND THROAT: Showed normocephalic, atraumatic. NECK: Supple. HEART: Showed normal first and second heart sounds. No gallop or murmur. CHEST: Clear to auscultation. No crepitation or rhonchi. ABDOMEN: Distended, soft, nontender. NEUROLOGIC: He is grossly intact. LABORATORY DATA: His intake was 700, output was 2140. As of this morning, his white cell count was 3800, hemoglobin 8.3, hematocrit 25, MCV 85, and platelet count was 54,000. His serum sodium was 140, potassium 3.5, chloride 106, bicarbonate 29, anion gap of 5, BUN 8, creatinine 0.8. DISCHARGE MEDICATIONS: He was discharged home to continue on his Carafate 1 gram 4 times a day. He is also on anti-hepatitis C one tablet once a day, Protonix 40 mg once a day and oxycodone/APAP 5/325 one tablet every 6 hours as needed. I did discharge him with lorazepam 0.5 mg 3 times a day as needed for 1 week. FINAL DISCHARGE DIAGNOSES: 1. Upper gastrointestinal bleeding. The patient was found to have severe esophagitis. 2. Acute blood loss anemia for which he received 2 units of packed RBCs. 3. Alcohol withdrawal syndrome. 4. Hypomagnesemia. 5. Hypokalemia, both have resolved. 6. Chronic hepatitis C, liver cirrhosis and portal hypertension. 7. Generalized osteoarthritis and psoriasis. KELSIE JUNIOR MD DR: PACO/sruthi JOB#: [id number] / [id number]
--- NOTE | 2020-01-11 12:32 | PDOC ---
Date of Service: DATE: 01/11/20 TIME: 12:29 Subjective: Subjective: Feels better, wants to go home, eating okay. Objective: Vital Signs: Vital Signs Date Time Temp Pulse Resp B/P (MAP) Pulse Ox O2 Delivery O2 Flow Rate FiO2 01/11/20 11:00 98.5 96 22 134/78 (96) 96 Room Air 98.5 Labs: Laboratory Tests Test 01/11/20 04:15 White Blood Count 3.8 x10^3/uL Red Blood Count 2.94 x10^6/uL Hemoglobin 8.3 g/dL Hematocrit 25.0 % Mean Corpuscular Volume 85 fL Mean Corpuscular Hemoglobin 28 pg Mean Corpuscular Hemoglobin Concent 33 g/dL Red Cell Distribution Width 20.4 % Platelet Count 54 x10^3/uL PE: GEN: NAD LUNGS: diminished HEART: RRR ABD: NABS, S/ND/NT NEURO/PSYCH: A & O 3, flat A/P: Recurrent hematemesis, melena, abd pain Erosive esophagitis, portal gastropathy, ulcerated polyp Anemia, thrombocytopenia, coagulopathy, elevated LFTs Hep C/alcoholic cirrhosis s/p TIPS - follows w/ [facility] hepatology -- Plans to DC. Encouraged him to follow-up w/ one facility - maybe [facility] since he sees hepatology there and apparently has plans for another EGD and colonoscopy next week - he says he prefers to leave things the way they are. No drinking. Justicifation of Admission Dx: Justifications for Admission: Justification of Admission Dx: Yes (gi bleeding) ANTOINETTE SALDANA Jan 11, 2020 12:32
--- NOTE | 2020-01-11 13:09 | NUR ---
Discharge Note: Patient was discharged home with self care. Patients IV was removed by RN, without any complications. Patient received discharge summary/instructions, follow-ups, prescription and educational material. Patient did not have any further questions or concerns. Patient was taken down to the main entrance with all personal belongings accompanied by JERARDO Taylor, via wheelchair where our transportation was waiting for him to take him home.
== END 2020-01-11 13:14 | disposition home or self-care (01) | DRG 380 ==
LOC: ER 09:54 → 1 WEST ICU 14:16 → 5 NORTH 01-10 15:57
PROVIDERS: ADMIT Internal Medicine; ATTEND Internal Medicine
PROC: 30233K1 Transfusion of Nonautologous Frozen Plasma into Peripheral Vein, Percutaneous Approach (ICD-10-PCS; 2020-01-08)
PROC: 30233N1 Transfusion of Nonautologous Red Blood Cells into Peripheral Vein, Percutaneous Approach (ICD-10-PCS; 2020-01-08)
PROC: 0DJ08ZZ Inspection of Upper Intestinal Tract, Via Natural or Artificial Opening Endoscopic (ICD-10-PCS; principal; 2020-01-09 11:00)
DX: K22.11 Ulcer of esophagus with bleeding (principal); E43 Unspecified severe protein-calorie malnutrition; D62 Acute posthemorrhagic anemia; K76.6 Portal hypertension; D68.9 Coagulation defect, unspecified; F10.239 Alcohol dependence with withdrawal, unspecified; B18.2 Chronic viral hepatitis C; D69.6 Thrombocytopenia, unspecified; E83.42 Hypomagnesemia; E87.6 Hypokalemia; F17.210 Nicotine dependence, cigarettes, uncomplicated; G89.29 Other chronic pain; K31.7 Polyp of stomach and duodenum; K70.30 Alcoholic cirrhosis of liver without ascites; L40.9 Psoriasis, unspecified; M15.9 Polyosteoarthritis, unspecified; Y90.5 Blood alcohol level of 100-119 mg/100 ml; Z20.828 Contact with and (suspected) exposure to other viral communicable diseases; Z90.49 Acquired absence of other specified parts of digestive tract; Z96.652 Presence of left artificial knee joint; Z98.1 Arthrodesis status; Z68.23 Body mass index [BMI] 23.0-23.9, adult; K21.0 Gastro-esophageal reflux disease with esophagitis; K31.89 Other diseases of stomach and duodenum
CPT/HCPCS: 36415; 43235; 80053; 82140; 83690; 83735; 85007; 85014; 85018; 85025; 85027; 85610; 85730; 86850; 86900; 86901; 86920; 86927; 87426; 93005; 96361; 96365; 96366; 96375; 99285; C9113; G0480; J2060; J2405; J2704; J2765; J3010; J3411; J3430; J3475; J3480; J3490; J7030; P9016; P9017; G0378; U0003-CS

== ENCOUNTER 2020-02-13 20:11 | Inpatient (IN) | payer MEDICARE, OTHER ==
[2020-02-13] VITALS (19 sets, daily range): BP systolic 75–141; BP diastolic 39–101
[~2020-02-13] VITALS: Ht 180.3 cm; Wt 113.0 kg
[~2020-02-13 20:11] MED LIST changes: +LORA0.5T96 PO
[2020-02-13] MEDS ORDERED: PANTOPRAZOLE IV PUSH 40 MG VIAL. IVP ONE (20:30)
[2020-02-13] MEDS ORDERED: OCTREOTIDE 500 MCG in IV NORMAL SALINE 100ML 100 ML IV PRN (20:30)
[2020-02-13] MEDS ORDERED: OCTREOTIDE 100 MCG/ML VIAL IV ONE (20:30)
[2020-02-13] MEDS ORDERED: PANTOPRAZOLE SODIUM IV DRIP 80 MG in IV NORMAL SALINE 100ML 100 ML IV ONE (20:30)
[2020-02-13] MEDS ORDERED: ONDANSETRON PF 4 MG/2 ML VIAL. ONE (20:38)
--- NOTE | 2020-02-13 20:39 | PHYS DOC ---
Past Medical History Past Medical History: Gallstones, Hepatitis, Other Additional Past Medical Histor: Esophageal Varicies, Cirrohsis, Hep. C, tibial plateau fx Past Surgical History: Appendectomy, Other Additional Past Surgical Histo: Left Knee, L4-L5 surgery, Paracentesis approx. every 3mo Smoking Status: Current Some Day Smoker Alcohol Use: Occasionally Drug Use: None General Adult EDM: Chief Complaint: HEMATEMESIS/VOMITING BLOOD HPI: HPI: Patient is a 59 year old male who presents with a 3-day history of nausea vomiting, the last 2 days has had hematemesis. Patient feels weak short of breath and dizzy. Patient also notes several episodes of melena. Patient complains of some upper abdominal cramping that is worse with palpation and p.o. intake. Patient has a history of esophageal varices hepatitis and alcohol use. Patient arrives via EMS without IV and extremely tachycardic and pale. Review of Systems: Review of Systems: Constitutional: Denies fever or chills. [] Eyes: Denies change in visual acuity. [] HENT: Denies nasal congestion or sore throat. [] Respiratory: Denies cough but has shortness of breath. [] Cardiovascular: Denies chest pain or edema. [] GI: Complains abdominal pain nausea vomiting, hematemesis and melena : Denies dysuria. [] Musculoskeletal: Denies back pain or joint pain. [] Integument: Denies rash. [] Neurologic: Denies headache, focal weakness or sensory changes. [] Endocrine: Denies polyuria or polydipsia. [] Lymphatic: Denies swollen glands. [] Psychiatric: Denies depression or anxiety. [] Heart Score: Risk Factors: Risk Factors: DM, Current or recent (<one month) smoker, HTN, HLP, family history of CAD, obesity. Risk Scores: Score 0 - 3: 2.5% MACE over next 6 weeks - Discharge Home Score 4 - 6: 20.3% MACE over next 6 weeks - Admit for Clinical Observation Score 7 - 10: 72.7% MACE over next 6 weeks - Early Invasive Strategies Current Medications: Current Medications Pantoprazole Sodium 80 mg/ Sodium Chloride 100 ml @ 10 mls/hr 1X ONCE IV Last administered on 02/13/20at 20:51; Start 02/13/20 at 20:30; Stop 02/14/20 at 06:29 Pantoprazole Sodium (PROTONIX VIAL for IV PUSH) 80 mg 1X ONCE IVP Last administered on 02/13/20at 20:58; Start 02/13/20 at 20:30; Stop 02/13/20 at 20:31; Status DC Octreotide Acetate 500 mcg/ Sodium Chloride 101 ml @ 5.05 mls/hr CONT PRN IV SEE I/O RECORD; Start 02/13/20 at 20:30; Stop 02/13/20 at 20:39; Status DC Octreotide Acetate (SandoSTATIN) 50 mcg 1X ONCE IV ; Start 02/13/20 at 20:30; Stop 02/13/20 at 20:39; Status DC Ondansetron HCl (Zofran) 4 mg STK-MED ONCE .ROUTE ; Start 02/13/20 at 20:38; Stop 02/13/20 at 20:39; Status DC Ondansetron HCl (Zofran) 4 mg 1X ONCE IVP Last administered on 02/13/20at 20:51; Start 02/13/20 at 20:45; Stop 02/13/20 at 20:46; Status DC Sodium Chloride 1,000 ml @ 1,000 mls/hr 1X ONCE IV Last administered on 02/13/20at 21:08; Start 02/13/20 at 21:15; Stop 02/13/20 at 22:14; Status DC Active Scripts Active Ativan (Lorazepam) 0.5 Mg Tablet 0.5 Mg PO TID 7 Days Percocet 5-325 Mg Tablet (Oxycodone/Acetaminophen) 1 Each Tablet 1 Tab PO PRN Q6HRS PRN 6 Days Carafate (Sucralfate) 1 Gm Tablet 1 Gm PO QIDACHS 30 Days Pantoprazole Sodium (Pantoprazole Sodium) 40 Mg Tablet.dr 40 Mg PO DAILYAC 30 Days Reported Sofosbuvir-Velpatasvir 400-100 (Sofosbuvir/Velpatasvir) 1 Each Tablet 1 Tab PO DAILY Current Medications Medications (Trade) Dose Ordered Sig/Sol Start Time Stop Time Status Last Admin Dose Admin Octreotide Acetate 500 mcg/ Sodium Chloride 101 ml @ 5.05 mls/hr CONT PRN 02/13/20 20:30 Octreotide Acetate (SandoSTATIN) 50 mcg 1X ONCE 02/13/20 20:30 02/13/20 20:31 DC Pantoprazole Sodium (PROTONIX VIAL for IV PUSH) 80 mg 1X ONCE 02/13/20 20:30 02/13/20 20:31 DC Pantoprazole Sodium 80 mg/ Sodium Chloride 100 ml @ 10 mls/hr 1X ONCE 02/13/20 20:30 02/14/20 06:29 Allergies: Allergies: Allergies Coded Allergies Type Severity Reaction Last Updated Verified No Known Drug Allergies 01/09/20 No Physical Exam: PE: Constitutional: Moderate distress, diaphoretic and pale HENT: Normocephalic, atraumatic, bilateral external ears normal, BLOOD IN OP. nose normal. [] Eyes: PERRLA, EOMI, conjunctiva normal, no discharge. [] Neck: Normal range of motion, no tenderness, supple, no stridor. [] Cardiovascular TACHYCARDIA, DEC PERIPHERAL PULSES Lungs & Thorax: DIMINISHED B/L BS Abdomen: soft,MILD DIFFUSE TENDERNESS Skin: Pale with scattered excoriations on legs Back: No tenderness, no CVA tenderness. [] Extremities: No tenderness, no cyanosis, no clubbing, ROM intact, no edema. [] Neurologic: Mildly drowsy but oriented x3, normal motor function, normal sensory function, no focal deficits noted. [] Psychologic: Affect normal, judgement normal, mood normal. [] Current Patient Data: Labs: Laboratory Tests Test 02/13/20 20:30 White Blood Count 7.7 x10^3/uL Red Blood Count 2.09 x10^6/uL Hemoglobin 5.8 g/dL Hematocrit 18.0 % Mean Corpuscular Volume 86 fL Mean Corpuscular Hemoglobin 28 pg Mean Corpuscular Hemoglobin Concent 32 g/dL Red Cell Distribution Width 20.5 % Platelet Count 75 x10^3/uL Neutrophils (%) (Auto) 75 % Lymphocytes (%) (Auto) 12 % Monocytes (%) (Auto) 12 % Eosinophils (%) (Auto) 1 % Basophils (%) (Auto) 1 % Neutrophils # (Auto) 5.7 x10^3/uL Lymphocytes # (Auto) 0.9 x10^3/uL Monocytes # (Auto) 0.9 x10^3/uL Eosinophils # (Auto) 0.0 x10^3/uL Basophils # (Auto) 0.0 x10^3/uL Platelet Estimate Decreased Polychromasia Slight Hypochromasia Mod Poikilocytosis Slight Anisocytosis Mod Ovalocytes Few Helmet Cells Occ Prothrombin Time 25.7 SEC Prothromb Time International Ratio 2.4 Activated Partial Thromboplast Time 48 SEC Sodium Level 144 mmol/L Potassium Level 3.9 mmol/L Chloride Level 107 mmol/L Carbon Dioxide Level 20 mmol/L Anion Gap 17 Blood Urea Nitrogen 21 mg/dL Creatinine 1.0 mg/dL Estimated GFR (Cockcroft-Gault) 77.0 BUN/Creatinine Ratio 21 Glucose Level 105 mg/dL Calcium Level 7.8 mg/dL Magnesium Level 1.5 mg/dL Total Bilirubin 2.6 mg/dL Aspartate Amino Transf (AST/SGOT) 52 U/L Alanine Aminotransferase (ALT/SGPT) 16 U/L Alkaline Phosphatase 63 U/L Total Protein 5.0 g/dL Albumin 1.9 g/dL Albumin/Globulin Ratio 0.6 Lipase 54 U/L Ethyl Alcohol Level 167 mg/dL Current Medications Medications (Trade) Dose Ordered Sig/Sol Route PRN Reason Start Time Stop Time Status Last Admin Dose Admin Pantoprazole Sodium 80 mg/ Sodium Chloride 100 ml @ 10 mls/hr 1X ONCE IV 02/13/20 20:30 02/14/20 06:29 02/13/20 20:51 Pantoprazole Sodium (PROTONIX VIAL for IV PUSH) 80 mg 1X ONCE IVP 02/13/20 20:30 02/13/20 20:31 DC 02/13/20 20:58 Octreotide Acetate 500 mcg/ Sodium Chloride 101 ml @ 5.05 mls/hr CONT PRN IV SEE I/O RECORD 02/13/20 20:30 02/13/20 20:39 DC Octreotide Acetate (SandoSTATIN) 50 mcg 1X ONCE IV 02/13/20 20:30 02/13/20 20:39 DC Ondansetron HCl (Zofran) 4 mg STK-MED ONCE .ROUTE 02/13/20 20:38 02/13/20 20:39 DC Ondansetron HCl (Zofran) 4 mg 1X ONCE IVP 02/13/20 20:45 02/13/20 20:46 DC 02/13/20 20:51 Sodium Chloride 1,000 ml @ 1,000 mls/hr 1X ONCE IV 02/13/20 21:15 02/13/20 22:14 DC 02/13/20 21:08 Vital Signs: Vital Signs Date Time Temp Pulse Resp B/P (MAP) Pulse Ox O2 Delivery O2 Flow Rate FiO2 02/13/20 23:08 128 18 121/65 02/13/20 23:03 99.5 123 18 115/60 99.5 02/13/20 22:58 99.5 117 18 117/61 99.5 02/13/20 22:42 98.7 117 18 115/70 98.7 02/13/20 22:38 126 18 115/59 02/13/20 22:33 129 18 102/57 02/13/20 22:27 98.4 126 18 96/53 98.4 02/13/20 22:13 121 20 90/50 02/13/20 22:08 125 16 96/53 02/13/20 22:04 130 18 90/51 02/13/20 22:00 98.4 134 16 141/101 98.4 02/13/20 21:44 136 18 81/49 02/13/20 21:39 128 12 83/49 02/13/20 21:36 123 12 78/43 02/13/20 21:32 97.8 125 12 75/39 97.8 EKG: EKG: EKG interpreted by pa sinus tachycardia with a rate of 146 normal axis normal intervals nonspecific ST changes [] Radiology/Procedures: Radiology/Procedures: [][facility] [address] [place] [address] IMAGING REPORT Signed PATIENT: KAL GUERRERO I ACCOUNT: [id number] : 1960 LOCATION: ER AGE: 59 SEX: M EXAM STATUS: REG ER ORD. PHYSICIAN: KAL SHEA MD REASON: gib PROCEDURE: PORTABLE CHEST 1V PORTABLE CHEST 1V History: Reason: GI bleed/ Spl. Instructions: / History: Comparison: November 21, 2019 Findings: No consolidation or pleural effusion. Normal heart size. No pneumothorax. Left external library monitor device noted. Impression: 1. No acute cardiopulmonary process. Electronically signed by: Edy Reese DO (02/13/2020 9:15 PM) [facility] DICTATED and SIGNED BY: EDY REESE DO DATE: 02/13/202114 Course & Med Decision Making: Course & Med Decision Making Pertinent Labs and Imaging studies reviewed. (See chart for details) [] Discussed with Dr. Taveras at 8:33 PM who knows the patient well says he does not have varices and we can stop the octreotide. 59-year-old male presents with significant upper GI bleed. Patient is tachycardic and borderline hypotensive will need aggressive fluid management. Patient has a hemoglobin of 5.8 will need 3 units of blood and 8 plasma due to his INR of 2.4. Discussed with GI right away on arrival who is aware of the patient. Patient will be admitted to Dr. Alvarez to the ICU. Patient received 3 units of blood and 2 units of plasma in ER and blood pressure and heart rates gradually improved. Patient reassessed multiple times and with some clinical improvement noted each time. Critical care time was [35] minutes exclusive of procedures. Critical care time was [35] minutes which includes time at bedside, spent in discussion of patient's care with specialist and/or family members, with interpretation of laboratory and/or radiological studies and is exclusive of procedures. Critical condition: Massive upper GI bleed, profound anemia, hypotension, coagulopathy Critical interventions: Protonix infusion, blood transfusion, plasma transfusion, admission to the ICU with GI consult Dwayne Disclaimer: Dwayne Disclaimer: This electronic medical record was generated, in whole or in part, using a voice recognition dictation system. Departure Departure Impression: Primary Impression: Upper GI bleed Additional Impressions: Acute blood loss anemia Coagulopathy Hypotension Disposition: 09 ADMITTED INPT THIS HOSP Admitting Physician: Madi. Guadarrama Condition: CRITICAL Referrals: LUCILA MCCLURE JR, MD (PCP) KAL SHEA MD Feb 13, 2020 20:39
[2020-02-13 20:45] LABS: BASO % 1 % (0-3); EOS % 1 % (0-3); LYMPH # 0.9 x10^3/uL (1.0-4.8); LYMPH % 12 % (24-48); MEAN CORPUSCULAR HEMOGLOBIN 28 pg (25-35); MEAN CORPUSCULAR HGB CONC 32 g/dL (31-37); MEAN CORPUSCULAR VOLUME 86 fL (79-100); MONO # 0.9 x10^3/uL (0.0-1.1); MONO % 12 % (0-9); NEUT # 5.7 x10^3/uL (1.8-7.7); NEUT % 75 % (31-73); PLATELET COUNT 75 x10^3/uL (140-400); RED BLOOD COUNT 2.09 x10^6/uL (4.30-5.70); RED CELL DISTRIBUTION WIDTH 20.5 % (11.5-14.5); WHITE BLOOD COUNT 7.7 x10^3/uL (4.0-11.0)
[2020-02-13] MEDS ORDERED: ONDANSETRON PF 4 MG/2 ML VIAL. IVP ONE (20:45)
[2020-02-13 20:51] LABS: HEMOGLOBIN 5.8 g/dL (13.0-17.5)
[2020-02-13 20:52] LABS: CALCIUM 7.8 mg/dL (8.5-10.1); POTASSIUM 3.9 mmol/L (3.5-5.1)
[2020-02-13 20:58] LABS: ALBUMIN 1.9 g/dL (3.4-5.0); ALBUMIN/GLOBULIN RATIO 0.6 (1.0-1.7); MAGNESIUM 1.5 mg/dL (1.8-2.4); TOTAL BILIRUBIN 2.6 mg/dL (0.2-1.0)
[2020-02-13 21:08] LABS: PLT ESTIMATE DECREASED (ADEQUATE); PROTHROMBIN TIME PATIENT 25.7 SEC (11.7-14.0)
[2020-02-13 21:09] LABS: ANISOCYTOSIS MOD; HELMET CELLS OCC; HYPOCHROMIA MOD; OVALOCYTES FEW; POIKILOCYTOSIS SLIGHT; POLYCHROMASIA SLIGHT
[2020-02-13] MEDS ORDERED: IV NORMAL SALINE 1000ML BAG 1,000 ML IV ONE (21:15)
--- NOTE | 2020-02-13 21:18 | RAD ---
PORTABLE CHEST 1V History: Reason: GI bleed/ Spl. Instructions: / History: Comparison: November 21, 2019 Findings: No consolidation or pleural effusion. Normal heart size. No pneumothorax. Left external equipment monitor phototypesetting device noted. Impression: 1. No acute cardiopulmonary process. Electronically signed by: Edy Reese DO (02/13/2020 9:15 PM) [facility]
[2020-02-13] MEDS: ONDANSETRON PF 4 MG/2 ML VIAL. IV PRN (21:55)
[2020-02-13] MEDS ORDERED: DICYCLOMINE 20 MG/2 ML VIAL. IM ONE (22:15)
[2020-02-14] VITALS (29 sets, daily range): BP systolic 103–151; BP diastolic 49–79
[2020-02-14 01:11] LABS: BASO % 1 % (0-3); EOS % 0 % (0-3); HEMATOCRIT 23.8 % (39.0-53.0); HEMOGLOBIN 7.9 g/dL (13.0-17.5); LYMPH # 0.8 x10^3/uL (1.0-4.8); LYMPH % 14 % (24-48); MEAN CORPUSCULAR HEMOGLOBIN 29 pg (25-35); MEAN CORPUSCULAR HGB CONC 33 g/dL (31-37); MEAN CORPUSCULAR VOLUME 88 fL (79-100); MONO # 0.7 x10^3/uL (0.0-1.1); MONO % 13 % (0-9); NEUT # 4.1 x10^3/uL (1.8-7.7); NEUT % 72 % (31-73); PLATELET COUNT 43 x10^3/uL (140-400); RED BLOOD COUNT 2.69 x10^6/uL (4.30-5.70); RED CELL DISTRIBUTION WIDTH 17.5 % (11.5-14.5); WHITE BLOOD COUNT 5.7 x10^3/uL (4.0-11.0)
[2020-02-14] MEDS: IV NORMAL SALINE 1000ML BAG 1,000 ML IV SCH ×3 (02:00→20:51)
[2020-02-14] MEDS: PANTOPRAZOLE SODIUM IV DRIP 80 MG in IV NORMAL SALINE 100ML 100 ML IV SCH ×2 (04:59→15:09)
--- NOTE | 2020-02-14 05:22 | EKG ---
[facility] [address] [place] [address] Test Date: 2020-02-13 Test Time: 20:39:56 Pat Name: KAL GUERRERO Department: Room: Gender: M Sorter Packer: NADIA : 1960 Requested By: KAL SHEA Order Number: [id number] Reading MD: Measurements Intervals [place] Rate: 146 P: [place]: QRS: 41 QRSD: 80 T: 87 QT: 284 QTc: 444 Interpretive Statements SUPRAVENTRICULAR TACHYCARDIA NO SPECIFIC ECG ABNORMALITIES RI6.02 No previous ECG available for comparison
[2020-02-14] MEDS: ONDANSETRON PF 4 MG/2 ML VIAL. IV PRN ×3 (08:09→21:07)
[2020-02-14] MEDS ORDERED: FLU VACC QS 2020-21(6MOS+)/PF 0.5 ML SYRINGE. VAX IM ONE (09:00)
--- NOTE | 2020-02-14 09:53 | PDOC2 ---
GI CONSULT Date of Service: DATE: 02/14/20 TIME: 09:53 Reason For Consult: UGIB HPI: HPI: 59 y/o male who we've seen many times now. Back again for same complaints - hematemesis, melena, and abd pain. Hgb 5.8, now 7.9 post transfusions. Says not drinking "that much" - alcohol level 167 - "I just had a lynsey with lunch yesterday." H/o Hep C/alcoholic cirrhosis w/ anemia, thrombocytopenia, coagulopathy, and recurrent ascites. In the past says was started on Epclusa through hepatology (Dr. Camargo). Goes there, [facility], here, and [facility]. EGD 09/10/[address] Ambriz: grade I-II non-bleeding distal esophageal varices, mild portal gastropathy w/o bleeding, no gastric varices, non-bleeding pre- pyloric Joceline but old melena in stomach, inflammation in duodenum (no ulcers or varices) EGD 12/15/[address] Taveras: no large esophageal varices seen - maybe grade I at best, no apparent M-W tear, moderate blood in fundus - unable to visualize well - only fresh blood seen in this area, rest of stomach with scattered blood but no lesions seen, normal duodenum. *pt uncooperative throughout exam* EGD 12/19/[address] Taveras: small grade I at best esophageal varices distally, small varix in cardia with red spots - suspect this may have been the cause of recent bleed, diffuse portal gastropathy, persistent ulcer measuring 6-8mm (described by Dr. Mane at [facility] [address] Ambriz here in August) with deformity of prepyloric antrum and pylorus (biopsy: reactive gastropathy with focal mild acute and chronic inflammation - negative for H. pylori and malignancy), some deformity in duodenal bulb w/o ulcer and second portion normal. Doppler US 11/2018: spleen is mildly enlarged, splenic vein is patent in the region of splenic hilum and mid and proximal segments of the splenic vein are not visualized due to underlying bowel gas. EGD by Dr. Mckeon in 2019: and small varices. S/p TIPS @ [facility] in 03/2019. EGD 12/03/[address] Jori Nam @ [facility] for hematemesis showed small esophageal varices, semi pudunculated polyp in pylorus w/ ulceration and stigmata of recent bleeding, chronic gastritis in whole stomach w/ nodularity, duodenal diverticulum in second portion. Pending biopsy results of polyp, recommendation for referral for polypectomy vs repeat endoscopy to asses for ulcer healing, BID PPI, and outpt colonoscopy. EGD 01/01/[address] Taveras for UGI bleeding: severe erosive esophagitis (distal third), no varices, no M-W tear (but difficult to exclude with the esophagitis), ulcerated 15mm pre-pyloric polyp as described at - ulcer 6-8mm and clean-based w/o stigmata of recent bleeding or high-risk features, diverticulum second portion of duodenum. Biopsy of polyp still pending. EGD 01/09/[address] Taveras for UGI bleeding: severe erosive esophagitis, no M-W or varices, portal gastropathy, ulcerated duodenal polyp prolapsing into stomach - non-bleeding. H/o cholelithiasis. On pantoprazole QD. Reports normal colonoscopy at age 51 and recent EGD and colonoscopy at "with polyps" - says supposed to have a colonoscopy at on 03/11/20 for polypectomy. I asked about any recent TIPS interrogation - he doesn't know what that means but says he hasn't needed paracentesis since TIPS placed. PMH: PMH: psoriasis, SVT lumbar fusion, TIPS, appendectomy, left knee surgery FH: Family History: No pertinent hx Social History: ALCOHOL: heavy ROS: Per HPI. Vitals: Vitals: Vital Signs Date Time Temp Pulse Resp B/P (MAP) Pulse Ox O2 Delivery O2 Flow Rate FiO2 02/14/20 09:05 114 14 133/69 (90) 95 Room Air 02/14/20 08:00 100.1 100.1 Labs: Labs: Laboratory Tests Test 02/13/20 20:30 02/14/20 00:32 02/14/20 01:00 White Blood Count 7.7 x10^3/uL (4.0-11.0) 5.7 x10^3/uL (4.0-11.0) Red Blood Count 2.09 x10^6/uL (4.30-5.70) 2.69 x10^6/uL (4.30-5.70) Hemoglobin 5.8 g/dL (13.0-17.5) 7.9 g/dL (13.0-17.5) Hematocrit 18.0 % (39.0-53.0) 23.8 % (39.0-53.0) Mean Corpuscular Volume 86 fL (79-100) 88 fL (79-100) Mean Corpuscular Hemoglobin 28 pg (25-35) 29 pg (25-35) Mean Corpuscular Hemoglobin Concent 32 g/dL (31-37) 33 g/dL (31-37) Red Cell Distribution Width 20.5 % (11.5-14.5) 17.5 % (11.5-14.5) Platelet Count 75 x10^3/uL (140-400) 43 x10^3/uL (140-400) Neutrophils (%) (Auto) 75 % (31-73) 72 % (31-73) Lymphocytes (%) (Auto) 12 % (24-48) 14 % (24-48) Monocytes (%) (Auto) 12 % (0-9) 13 % (0-9) Eosinophils (%) (Auto) 1 % (0-3) 0 % (0-3) Basophils (%) (Auto) 1 % (0-3) 1 % (0-3) Neutrophils # (Auto) 5.7 x10^3/uL (1.8-7.7) 4.1 x10^3/uL (1.8-7.7) Lymphocytes # (Auto) 0.9 x10^3/uL (1.0-4.8) 0.8 x10^3/uL (1.0-4.8) Monocytes # (Auto) 0.9 x10^3/uL (0.0-1.1) 0.7 x10^3/uL (0.0-1.1) Eosinophils # (Auto) 0.0 x10^3/uL (0.0-0.7) 0.0 x10^3/uL (0.0-0.7) Basophils # (Auto) 0.0 x10^3/uL (0.0-0.2) 0.0 x10^3/uL (0.0-0.2) Platelet Estimate Decreased (ADEQUATE) Polychromasia Slight Hypochromasia Mod Poikilocytosis Slight Anisocytosis Mod Ovalocytes Few Helmet Cells Occ Prothrombin Time 25.7 SEC (11.7-14.0) Prothromb Time International Ratio 2.4 (0.8-1.1) Activated Partial Thromboplast Time 48 SEC (24-38) Sodium Level 144 mmol/L (136-145) Potassium Level 3.9 mmol/L (3.5-5.1) Chloride Level 107 mmol/L (98-107) Carbon Dioxide Level 20 mmol/L (21-32) Anion Gap 17 (6-14) Blood Urea Nitrogen 21 mg/dL (8-26) Creatinine 1.0 mg/dL (0.7-1.3) Estimated GFR (Cockcroft-Gault) 77.0 BUN/Creatinine Ratio 21 (6-20) Glucose Level 105 mg/dL (70-99) Calcium Level 7.8 mg/dL (8.5-10.1) Magnesium Level 1.5 mg/dL (1.8-2.4) Total Bilirubin 2.6 mg/dL (0.2-1.0) Aspartate Amino Transf (AST/SGOT) 52 U/L (15-37) Alanine Aminotransferase (ALT/SGPT) 16 U/L (16-63) Alkaline Phosphatase 63 U/L (46-116) Total Protein 5.0 g/dL (6.4-8.2) Albumin 1.9 g/dL (3.4-5.0) Albumin/Globulin Ratio 0.6 (1.0-1.7) Lipase 54 U/L (73-393) Ethyl Alcohol Level 167 mg/dL (0-10) SARS-CoV-2 Antigen (Rapid) Negative (NEGATIVE) Allergies: Coded Allergies: No Known Drug Allergies (Unverified , 01/09/20) Medications: Current Medications Medications (Trade) Dose Ordered Sig/Sol Route PRN Reason Start Time Stop Time Status Last Admin Dose Admin Pantoprazole Sodium 80 mg/ Sodium Chloride 100 ml @ 10 mls/hr 1X ONCE IV 02/13/20 20:30 02/14/20 06:29 DC 02/13/20 20:51 Pantoprazole Sodium (PROTONIX VIAL for IV PUSH) 80 mg 1X ONCE IVP 02/13/20 20:30 02/13/20 20:31 DC 02/13/20 20:58 Ondansetron HCl (Zofran) 4 mg 1X ONCE IVP 02/13/20 20:45 02/13/20 20:46 DC 02/13/20 20:51 Sodium Chloride 1,000 ml @ 1,000 mls/hr 1X ONCE IV 02/13/20 21:15 02/13/20 22:14 DC 02/13/20 21:08 Ondansetron HCl (Zofran) 4 mg PRN Q8HRS PRN IV NAUSEA/VOMITING 02/13/20 21:30 02/14/20 21:29 02/14/20 08:09 Dicyclomine HCl (Bentyl) 20 mg 1X ONCE IM 02/13/20 22:15 02/13/20 22:16 DC 02/13/20 22:03 Sodium Chloride 1,000 ml @ 100 mls/hr Q10H IV 02/14/20 02:00 02/14/20 08:09 Pantoprazole Sodium 80 mg/ Sodium Chloride 100 ml @ 10 mls/hr Q10H IV 02/14/20 04:00 02/14/20 04:59 Imaging: Imaging: CXR 02/12 Impression: 1. No acute cardiopulmonary process. PE: GEN: spitting into emesis basin - no blood HEENT: Atraumatic, PERRL LUNGS: diminished HEART: tachycardic ABD: BS+, diffusely tender per usual, soft EXTREMITY: No edema SKIN: No rashes, no jaundice NEURO/PSYCH: A & O 3, grumpy per usual A/P: A/P: Hematemesis, melena, abd pain, fever - same as in the past, workup as above Anemia, thrombocytopenia, coagulopathy Hep C/alcoholic cirrhosis s/p TIPS - ?treatment at H/o PUD, portal gastropathy, and ulcerated duodenal polyp GERD CRC screen - reportedly recently at w/ polyps - follow-up scheduled for removal Cholelithiasis COVID-19 negative 02/13 +alcohol -- Recurrent admission for same. He also goes to a couple other hospitals. Still drinks. Lacks insight. D/w Dr. Taveras - check TIPS - d/w Dr. Duarte who will order doppler. NPO, IV PPI. Monitor labs, transfuse as needed. JORDAN-BRANINE,ANTOINETTE PA Feb 14, 2020 09:53
--- NOTE | 2020-02-14 10:00 | HP ---
ADMIT DATE: 02/13/2020 HISTORY OF PRESENT ILLNESS: The patient is a 59-year-old male patient who yet again came to the Emergency Room complaining of 3-day history of nausea, vomiting, in the last 2 days has also had hematemesis. The patient feels weak, short of breath and dizzy. The patient also had several episodes of melena, complained of some upper abdominal cramping that is worse with palpation and p.o. intake. He did have a history of esophageal varices, hepatitis and alcohol use. The patient arrived by EMS without IV and extremely tachypneic and pale. He was evaluated in the Emergency Room. His lab work showed that his hemoglobin was 5.8, hematocrit 18. His prothrombin time, INR and aPTT are all elevated and his chemistry showed that he has hyperbilirubinemia. Toxic screen showed blood alcohol level 167. His SARS rapid test was negative. He was treated with IV fluid, IV Protonix as well as octreotide and was admitted to ICU to continue on Protonix drip and IV fluid and was transfused 2 units of blood. PAST MEDICAL HISTORY: Significant for hepatitis C that was diagnosed in 1986, was treated at that time with interferon and ribavirin. According to him, had relapse again in 2019 and was seen at [facility] and has been on treatment for that. He is also known to have cirrhosis, portal hypertension, esophageal varices. Has had 13 paracentesis and after he underwent TIPS procedure in 2019, has not had any further ascites. He is known to have generalized osteoarthritis and psoriasis. On his last admission, he was found to have severe esophagitis. He also had prepyloric polyp ulcerated, but with no sign of bleeding at that time as well as duodenal diverticulum. PAST SURGICAL HISTORY: Significant for appendectomy, vasectomy, L4-L5 vertebral fusion, left total knee arthroplasty, multiple esophagogastroduodenoscopies and TIPS procedure. ALLERGIES: He has no known drug allergies. MEDICATIONS: He was discharged on Carafate 1 gram 4 times a day. He is also on Protonix 40 mg once a day, oxycodone 1 tablet every 6 hours, lorazepam 0.5 mg 3 times a day as needed for 1 week. FAMILY HISTORY: He has 1 brother and 1 sister, all younger and healthy. His father at the age of 90 with complication of obesity. Mother is still alive at the age of 88 and seemingly healthy. SOCIAL HISTORY: He is , has 2 sons, one in longterm and one lives with him. He smokes only 3 cigarettes a day. He used to smoke a pack a day and quit doing that 5 years ago. He drinks alcohol almost on a daily basis, it seems, although he always claims that he does not. He is currently retired and on disability. 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 REVIEW OF SYSTEMS: As per history of present illness. PHYSICAL EXAMINATION: GENERAL: On arrival to the Emergency Room, he was pale, but no jaundice, cyanosis or thyromegaly. No jugular venous distention. No lower limb edema. VITAL SIGNS: His heart rate was 120, blood pressure was 113/60, temperature was 98, respiratory rate was 18 and oxygen saturation was 96% on room air. HEAD, EYES, EARS, NOSE AND THROAT: Showed normocephalic, atraumatic. NECK: Supple. HEART: Showed normal first and second heart sounds. No gallop, rub or murmur. CHEST: Clear to auscultation. No crepitation or rhonchi. ABDOMEN: Distended, soft, nontender. NEUROLOGIC: He was awake, alert, responding appropriately. All cranial nerves intact. EXTREMITIES: He moves extremities without difficulty. LABORATORY DATA: His lab work on arrival showed that his white cell count was 7700, hemoglobin 6, hematocrit 18, MCV 86 and platelet count of 75,000. His prothrombin time was 25.7, INR of 2.4, aPTT was 48. Serum sodium was 144, potassium 3.9, chloride 107, bicarbonate 20, anion gap of 17, BUN 21, creatinine 1, estimated GFR was 77. His glucose was 105, calcium was 7.8, magnesium was 1.5, total bilirubin 2.6. AST, ALT, alkaline phosphatase were normal. Total protein 5, albumin was 1.9. His toxic screen showed blood alcohol level of 167 and his SARS-CoV-2 antigen rapid test was negative. ASSESSMENT AND PLAN: The patient was admitted with acute blood loss anemia and probably upper gastrointestinal bleeding, coagulopathy and hypertension as well as he is known to have liver cirrhosis due to hepatitis C and alcohol. He was treated with IV fluid, Protonix drip as well as 2 units of packed RBCs and was admitted to the ICU and we have consulted the GI service to assist with management. KELSIE JUNIOR MD DR: Jazmyn JOB#: [id number] / [id number]
--- NOTE | 2020-02-14 10:07 | PN ---
DATE: 02/14/2020 SUBJECTIVE: The patient is resting flat in bed, in no apparent distress. He is awake, alert, complaining of abdominal pain. He continued to have dry heaving, but no hematemesis. PHYSICAL EXAMINATION: GENERAL: When I examined him this morning, he was pale, but no jaundice, cyanosis or thyromegaly. No jugular venous distention or limb edema. VITAL SIGNS: His heart rate was 114, blood pressure was 133/69, temperature was 100.1, respiratory rate was 14 and oxygen saturation was 95%. HEAD, EYES, EARS, NOSE AND THROAT: Normocephalic, atraumatic. NECK: Supple. CARDIAC: Normal first and second heart sounds. No gallop or murmur. CHEST: Shows central trachea, equal bilateral expansion, air entry, vesicular breath sounds. No crepitation or rhonchi. ABDOMEN: Distended, soft with tenderness mostly in epigastric area. No guarding or rigidity. No organomegaly. All hernial orifice intact. Bowel sounds normal. NEUROLOGIC: He was awake, alert, responding appropriately. All his cranial nerves are intact. He moves extremities without difficulty. LABORATORY DATA: His lab work this morning showed a white cell count 5700, hemoglobin 7.9, hematocrit 23.8, MCV 88 and platelet count of 43,000. His chemistry is still pending at the time of this dictation. ASSESSMENT AND PLAN: This is a 59-year-old male patient who yet again was admitted with acute blood loss anemia, probably due to upper gastrointestinal bleed, is known to have esophageal varices. He has alcoholic and hepatitis C liver cirrhosis with coagulopathy due to advanced liver disease, hypertension, treated with IV fluid and received 3 units of packed RBCs and 8 units of fresh frozen plasma. I will repeat his labs this morning including his PT/INR and CMP. KELSIE JUNIOR MD DR: PACO/sruthi JOB#: [id number] / [id number]
[2020-02-14 11:37] LABS: ALBUMIN/GLOBULIN RATIO 0.7 (1.0-1.7); CALCIUM 7.5 mg/dL (8.5-10.1); CREATININE 0.8 mg/dL (0.7-1.3); GFR 99.6; POTASSIUM 3.5 mmol/L (3.5-5.1); PROTHROMBIN TIME PATIENT 21.5 SEC (11.7-14.0); TOTAL BILIRUBIN 4.5 mg/dL (0.2-1.0); TOTAL PROTEIN 4.8 g/dL (6.4-8.2)
--- NOTE | 2020-02-14 13:15 | RAD ---
Limited abdominal doppler ultrasound INDICATION: TIPS check Comparison: 12/19/18 Limited abdominal Doppler ultrasound TECHNIQUE: Grayscale, color and spectral Doppler imaging of the right upper quadrant abdomen was performed to assess patency of patient's TIPS shunt. Spectral Doppler imaging of the portal veins and of the portal, middle and hepatic portions of the shunt was performed. Technologist reports that the examination is rendered difficult by bowel gas artifact and patient's vomiting. FINDINGS: The right and left portal veins were not well visualized. There is a moderate amount of ascites. This has decreased from the last ultrasound examination. The main portal vein however was identified and demonstrates hepatopedal flow with a peak systolic velocity of 57 cm/s. The portal end of the shunt shows a peak systolic velocity of 171 cm/s (normal ranges between 100 to 200 cm/s). The midportion of the shunt shows a peak systolic velocity of 58 cm/s The hepatic end of the shunt shows a peak systolic velocity of 63 cm/s. IMPRESSION: Limited examination demonstrating patency of the TIPS shunt with velocities as described, all within normal limits but relative increase of the portal and compared with the middle and hepatic ends. Assessment on follow-up is recommended to confirm absence of proximal stenosis. Electronically signed by: Faith Naqvi MD (02/14/2020 1:11 PM) [id number]
--- NOTE | 2020-02-14 14:27 | NUR ---
Patient had moderate black stool, partially tarry/thick, partially liquid. 1000cc dark brown emesis with black specs.
[2020-02-14 15:31] LABS: HEMATOCRIT 20.3 % (39.0-53.0); HEMOGLOBIN 6.9 g/dL (13.0-17.5)
--- NOTE | 2020-02-14 15:38 | NUR ---
SS following for discharge planning. SS reviewed pt chart and discussed with pt RN. Pt is from home and is currently on room air. Pt having EGD tomorrow. PAT team referral made for ETOH. SS will continue to follow for discharge planning.
[2020-02-14 17:15] LABS: BILIRUBIN,URINE SMALL (NEG); CLARITY,URINE CLEAR; NITRITE,URINE NEGATIVE (NEG); PROTEIN,URINE NEGATIVE (NEG-TRACE)
[2020-02-14 17:20] LABS: BACTERIA,URINE 0 /HPF (0-FEW); COLOR,URINE AMBER; RBC,URINE 0 /HPF (0-2); WBC,URINE OCC /HPF (0-4)
[2020-02-14 20:54] LABS: HEMATOCRIT 23.9 % (39.0-53.0); HEMOGLOBIN 8.1 g/dL (13.0-17.5)
[2020-02-15] VITALS (17 sets, daily range): BP systolic 111–153; BP diastolic 63–95
[2020-02-15] MEDS: PANTOPRAZOLE SODIUM IV DRIP 80 MG in IV NORMAL SALINE 100ML 100 ML IV SCH ×2 (00:11→11:24)
[2020-02-15 06:20] LABS: CALCIUM 7.2 mg/dL (8.5-10.1); CREATININE 0.8 mg/dL (0.7-1.3); GFR 99.6; POTASSIUM 3.4 mmol/L (3.5-5.1)
[2020-02-15 06:40] LABS: HEMATOCRIT 23.2 % (39.0-53.0); HEMOGLOBIN 7.9 g/dL (13.0-17.5); RED BLOOD COUNT 2.63 x10^6/uL (4.30-5.70); RED CELL DISTRIBUTION WIDTH 17.6 % (11.5-14.5); WHITE BLOOD COUNT 4.1 x10^3/uL (4.0-11.0)
[2020-02-15] MEDS: IV NORMAL SALINE 1000ML BAG 1,000 ML IV SCH ×2 (06:58→18:00)
[2020-02-15] MEDS: ONDANSETRON PF 4 MG/2 ML VIAL. IV PRN (06:58)
[2020-02-15] MEDS ORDERED: IV RINGERS,LACTATED 1000ML 1,000 ML IV SCH (07:00)
[2020-02-15] MEDS ORDERED: METOCLOPRAMIDE HCL 10 MG/2 ML VIAL. IVP ONE (08:00)
--- NOTE | 2020-02-15 10:25 | PN ---
DATE: 02/15/2020 SUBJECTIVE: The patient is resting flat, sleeping comfortably, in no apparent distress. He is nauseous, but had no episodes of emesis. He dropped his H and H yesterday again to 6.9 and 20, received another unit of blood and this morning, his H and H is 7.9 and 23 with normal white cell count. His platelets have been low at 31. PHYSICAL EXAMINATION: GENERAL: When I examined him this morning, he looked pale, but no jaundice, cyanosis or thyromegaly. No jugular venous distention or limb edema. VITAL SIGNS: His heart rate was 89, blood pressure was 119/63, temperature was 98.9, respiratory rate was 16, and oxygen saturation was 94% on 2 liters of oxygen. HEAD, EYES, EARS, NOSE, AND THROAT: Showed normocephalic, atraumatic. NECK: Supple. HEART: Showed normal first and second heart sounds. No gallop, rub or murmur. CHEST: Clear to auscultation. No crepitation or rhonchi. ABDOMEN: Distended, soft with mild tenderness in the epigastric area. No guarding or rigidity. No organomegaly. All hernial orifices intact. Bowel sounds normal. NEUROLOGIC: He was sleepy, but arousable. All his cranial nerves are intact. He moves extremities spontaneously. His intake was 2250, output was 100. LABORATORY DATA: As of this morning, his white cell count was 4100, hemoglobin 7.9, hematocrit 23.2, MCV 88 and platelet count of 31,000. His serum sodium was 142, potassium 3.4, chloride 109, bicarbonate 27, anion gap of 6, BUN 18, creatinine 0.8, estimated GFR was 99 mL per minute, his glucose was 82, calcium was 7.2. His prothrombin time was 21.5, INR 1.9. Urinalysis essentially unremarkable. ASSESSMENT: 1. Acute blood loss anemia. 2. Acute upper gastrointestinal bleed. 3. The patient is known to have esophageal varices. 4. He is alcoholic. He has liver cirrhosis due to alcohol and hepatitis C with coagulopathy to advanced liver disease. 5. Hypertension. 6. Continued alcohol abuse. PLAN: The patient apparently seemed to be stable hemodynamically. His H and H is at least for now stable. I will arrange to repeat his H and H again this afternoon. Meanwhile, we will continue with proton pump inhibitor. KELSIE JUNIOR MD DR: PACO/sruthi JOB#: [id number] / [id number]
[2020-02-15] MEDS ORDERED: IV RINGERS,LACTATED 1000ML 1,000 ML IV ONE (13:30)
[2020-02-15] MEDS ORDERED: LIDOCAINE 2% PF 5 ML VIAL. ONE (13:44)
[2020-02-15] MEDS ORDERED: PROPOFOL 10 MG/ML (20ML) VIAL. IV ONE (14:13)
--- NOTE | 2020-02-15 14:20 | PDOC4 ---
PROCEDURE Procedure EGD Indication: UGI bleeding Meds: per anesthesia Findings: E--NO VARICES. Esophagitis much improved from last EGD. Some tongues of salmon-colored mucosa suggestive of possible Cardenas's distally. Not biopsied due to recent bleeding and coagulopathy. At GEJ, spot of blood suggestive of recent small M-W tear. G--Portal gastropathy. Pyloric polyp as before ~12-15mm with clean-based ulcer atop ~7-8mm. No signs of bleeding or potential bleeding. Able to pass pylorus fairly easily. D--Diverticulum in second portion; explored with scope and no lesions within. Tati. well. IMP: Reflux esophagitis, improved, but with ?Cardenas's. Portal hypertensive gastropathy. 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 Duodenal diverticulum Polyp, arising just distal to pylorus, ulcerated but no bleeding and hyperplastic by prior biopsies. Don't think this is obstructing. REC: Clears, gradually advance. PO PPI BID STOP DRINKING Given non-compliance, not really good candidate for Cardenas's surveillance even if present. Off the weekend. Coverage available if needed. JESSICA LÓPEZ MD Feb 15, 2020 14:20
--- NOTE | 2020-02-15 14:51 | NUR ---
SS following up with discharge planning. SS reviewed pt chart and discussed with pt RN. Pt is currently on room air. Pt had EGD. Clear liquid diet. COVID19 negative. Silvina from the PAT team met with pt and reported that pt was not interested in accessing any resources to help him with his alcohol use. Pt stated that he would be willing to go to AA meetings in [place], [place] and has past experience at AA. Silvina spoke with pt's son and provided pt with a [employer] brochure. Pt transferred to room 502. Lola CHAVARRIA, notified.
[2020-02-15] MEDS: fentaNYL PF VIAL 100 MCG/2 ML VIAL IVP PRN ×2 (16:08→20:37)
[2020-02-15] MEDS: PANTOPRAZOLE 40 MG TABLET.DR. PO SCH (17:02)
[2020-02-16] VITALS (7 sets, daily range): BP systolic 115–152; BP diastolic 60–98
[2020-02-16] MEDS ORDERED: ONDANSETRON PF 4 MG/2 ML VIAL. IVP PRN
[2020-02-16] MEDS: fentaNYL PF VIAL 100 MCG/2 ML VIAL IVP PRN ×5 (00:10→19:55)
[2020-02-16] MEDS: IV NORMAL SALINE 1000ML BAG 1,000 ML IV SCH (03:54)
[2020-02-16 06:56] LABS: HEMATOCRIT 25.2 % (39.0-53.0); HEMOGLOBIN 8.6 g/dL (13.0-17.5)
[2020-02-16 06:57] LABS: HEMATOCRIT 25.7 % (39.0-53.0); HEMOGLOBIN 8.5 g/dL (13.0-17.5); RED BLOOD COUNT 2.88 x10^6/uL (4.30-5.70); RED CELL DISTRIBUTION WIDTH 17.4 % (11.5-14.5); WHITE BLOOD COUNT 4.7 x10^3/uL (4.0-11.0)
[2020-02-16 07:12] LABS: PROTHROMBIN TIME PATIENT 20.6 SEC (11.7-14.0)
[2020-02-16 07:20] LABS: ALBUMIN/GLOBULIN RATIO 0.7 (1.0-1.7); CALCIUM 7.3 mg/dL (8.5-10.1); CREATININE 0.8 mg/dL (0.7-1.3); GFR 99.6; POTASSIUM 3.4 mmol/L (3.5-5.1); TOTAL BILIRUBIN 3.4 mg/dL (0.2-1.0); TOTAL PROTEIN 4.8 g/dL (6.4-8.2)
[2020-02-16] MEDS: PANTOPRAZOLE 40 MG TABLET.DR. PO SCH ×2 (07:56→17:55)
[2020-02-16] MEDS ORDERED: oxyCODONE/APAP 5/325 1 TAB TABLET PO PRN (10:00)
[2020-02-16] MEDS ORDERED: chlordiazePOXIDE HCL 25 MG CAPSULE PO PRN ×2 (10:00)
[2020-02-16] MEDS ORDERED: HALOPERIDOL LACTATE 5 MG/ML VIAL. IVP PRN (10:00)
[2020-02-16] MEDS: MULTIVIT INFUSN,ADULT 4,VIT K 10 ML, THIAMINE INJ 100 MG, FOLIC ACID INJ 1 MG in IV NOR... IV SCH (11:19)
[2020-02-16] MEDS: SUCRALFATE 1 GM TABLET. PO SCH ×3 (11:25→20:00)
--- NOTE | 2020-02-16 11:56 | PDOC ---
G I PROGRESS NOTE Subjective No real complaints. Denies N, V, any bleeding. Physical Exam Lungs clear. RRR Abdomen soft, not tender nor distended. Review of Relevant I have reviewed the following items clinton (where applicable) has been applied. Labs Laboratory Tests Test 02/14/20 15:15 02/14/20 17:00 02/14/20 20:34 02/15/20 05:15 Hemoglobin 6.9 g/dL (13.0-17.5) 8.1 g/dL (13.0-17.5) 7.9 g/dL (13.0-17.5) Hematocrit 20.3 % (39.0-53.0) 23.9 % (39.0-53.0) 23.2 % (39.0-53.0) Urine Collection Type Unknown Urine Color Georgina Urine Clarity Clear Urine pH 7.0 (<5.0-8.0) Urine Specific [place] 1.025 (1.000-1.030) Urine Protein Negative mg/dL (NEG-TRACE) Urine Glucose (UA) Negative mg/dL (NEG) Urine Ketones (Stick) 15 mg/dL (NEG) Urine Blood Negative (NEG) Urine Nitrite Negative (NEG) Urine Bilirubin Small (NEG) Urine Urobilinogen Dipstick 4.0 mg/dL (0.2 mg/dL) Urine Leukocyte Esterase Small (NEG) Urine RBC 0 /HPF (0-2) Urine WBC Occ /HPF (0-4) Urine Bacteria 0 /HPF (0-FEW) White Blood Count 4.1 x10^3/uL (4.0-11.0) Red Blood Count 2.63 x10^6/uL (4.30-5.70) Mean Corpuscular Volume 88 fL (79-100) Mean Corpuscular Hemoglobin 30 pg (25-35) Mean Corpuscular Hemoglobin Concent 34 g/dL (31-37) Red Cell Distribution Width 17.6 % (11.5-14.5) Platelet Count 31 x10^3/uL (140-400) Sodium Level 142 mmol/L (136-145) Potassium Level 3.4 mmol/L (3.5-5.1) Chloride Level 109 mmol/L (98-107) Carbon Dioxide Level 27 mmol/L (21-32) Anion Gap 6 (6-14) Blood Urea Nitrogen 18 mg/dL (8-26) Creatinine 0.8 mg/dL (0.7-1.3) Estimated GFR (Cockcroft-Gault) 99.6 Glucose Level 82 mg/dL (70-99) Calcium Level 7.2 mg/dL (8.5-10.1) Test 02/16/20 06:29 White Blood Count 4.7 x10^3/uL (4.0-11.0) Red Blood Count 2.88 x10^6/uL (4.30-5.70) Hemoglobin 8.5 g/dL (13.0-17.5) Hematocrit 25.7 % (39.0-53.0) Mean Corpuscular Volume 90 fL (79-100) Mean Corpuscular Hemoglobin 30 pg (25-35) Mean Corpuscular Hemoglobin Concent 33 g/dL (31-37) Red Cell Distribution Width 17.4 % (11.5-14.5) Platelet Count 42 x10^3/uL (140-400) Prothrombin Time 20.6 SEC (11.7-14.0) Prothromb Time International Ratio 1.8 (0.8-1.1) Sodium Level 140 mmol/L (136-145) Potassium Level 3.4 mmol/L (3.5-5.1) Chloride Level 107 mmol/L (98-107) Carbon Dioxide Level 27 mmol/L (21-32) Anion Gap 6 (6-14) Blood Urea Nitrogen 11 mg/dL (8-26) Creatinine 0.8 mg/dL (0.7-1.3) Estimated GFR (Cockcroft-Gault) 99.6 BUN/Creatinine Ratio 14 (6-20) Glucose Level 94 mg/dL (70-99) Calcium Level 7.3 mg/dL (8.5-10.1) Total Bilirubin 3.4 mg/dL (0.2-1.0) Aspartate Amino Transf (AST/SGOT) 49 U/L (15-37) Alanine Aminotransferase (ALT/SGPT) 16 U/L (16-63) Alkaline Phosphatase 54 U/L (46-116) Total Protein 4.8 g/dL (6.4-8.2) Albumin 2.0 g/dL (3.4-5.0) Albumin/Globulin Ratio 0.7 (1.0-1.7) Laboratory Tests Test 02/16/20 06:29 White Blood Count 4.7 x10^3/uL (4.0-11.0) Red Blood Count 2.88 x10^6/uL (4.30-5.70) Hemoglobin 8.5 g/dL (13.0-17.5) Hematocrit 25.7 % (39.0-53.0) Mean Corpuscular Volume 90 fL (79-100) Mean Corpuscular Hemoglobin 30 pg (25-35) Mean Corpuscular Hemoglobin Concent 33 g/dL (31-37) Red Cell Distribution Width 17.4 % (11.5-14.5) Platelet Count 42 x10^3/uL (140-400) Prothrombin Time 20.6 SEC (11.7-14.0) Prothromb Time International Ratio 1.8 (0.8-1.1) Sodium Level 140 mmol/L (136-145) Potassium Level 3.4 mmol/L (3.5-5.1) Chloride Level 107 mmol/L (98-107) Carbon Dioxide Level 27 mmol/L (21-32) Anion Gap 6 (6-14) Blood Urea Nitrogen 11 mg/dL (8-26) Creatinine 0.8 mg/dL (0.7-1.3) Estimated GFR (Cockcroft-Gault) 99.6 BUN/Creatinine Ratio 14 (6-20) Glucose Level 94 mg/dL (70-99) Calcium Level 7.3 mg/dL (8.5-10.1) Total Bilirubin 3.4 mg/dL (0.2-1.0) Aspartate Amino Transf (AST/SGOT) 49 U/L (15-37) Alanine Aminotransferase (ALT/SGPT) 16 U/L (16-63) Alkaline Phosphatase 54 U/L (46-116) Total Protein 4.8 g/dL (6.4-8.2) Albumin 2.0 g/dL (3.4-5.0) Albumin/Globulin Ratio 0.7 (1.0-1.7) Microbiology 02/14/20 Urine Culture - Final, Complete Hemoglobin stable. Medications Current Medications Pantoprazole Sodium 80 mg/ Sodium Chloride 100 ml @ 10 mls/hr 1X ONCE IV Last administered on 02/13/20at 20:51; Start 02/13/20 at 20:30; Stop 02/14/20 at 06:29; Status DC Pantoprazole Sodium (PROTONIX VIAL for IV PUSH) 80 mg 1X ONCE IVP Last administered on 02/13/20at 20:58; Start 02/13/20 at 20:30; Stop 02/13/20 at 20:31; Status DC Octreotide Acetate 500 mcg/ Sodium Chloride 101 ml @ 5.05 mls/hr CONT PRN IV SEE I/O RECORD; Start 02/13/20 at 20:30; Stop 02/13/20 at 20:39; Status DC Octreotide Acetate (SandoSTATIN) 50 mcg 1X ONCE IV ; Start 02/13/20 at 20:30; Stop 02/13/20 at 20:39; Status DC Ondansetron HCl (Zofran) 4 mg STK-MED ONCE .ROUTE ; Start 02/13/20 at 20:38; Stop 02/13/20 at 20:39; Status DC Ondansetron HCl (Zofran) 4 mg 1X ONCE IVP Last administered on 02/13/20at 20:51; Start 02/13/20 at 20:45; Stop 02/13/20 at 20:46; Status DC Sodium Chloride 1,000 ml @ 1,000 mls/hr 1X ONCE IV Last administered on 02/13/20at 21:08; Start 02/13/20 at 21:15; Stop 02/13/20 at 22:14; Status DC Ondansetron HCl (Zofran) 4 mg PRN Q8HRS PRN IV NAUSEA/VOMITING Last administered on 02/14/20at 08:09; Start 02/13/20 at 21:30; Stop 02/14/20 at 15:01; Status DC Dicyclomine HCl (Bentyl) 20 mg 1X ONCE IM Last administered on 02/13/20at 22:03; Start 02/13/20 at 22:15; Stop 02/13/20 at 22:16; Status DC Influenza Virus Vaccine Quadrival (Fluzone Quad Syringe) 0.5 ml ONCE ONCE VAX IM Last administered on 02/14/20at 15:18; Start 02/14/20 at 09:00; Stop 02/14/20 at 09:01; Status DC Sodium Chloride 1,000 ml @ 100 mls/hr Q10H IV Last administered on 02/16/20at 03:54; Start 02/14/20 at 02:00; Stop 02/16/20 at 10:03; Status DC Pantoprazole Sodium 80 mg/ Sodium Chloride 100 ml @ 10 mls/hr Q10H IV Last administered on 02/15/20at 11:24; Start 02/14/20 at 04:00; Stop 02/15/20 at 14:23; Status DC Ondansetron HCl (Zofran) 4 mg PRN Q6HRS PRN IV NAUSEA/VOMITING Last administered on 02/15/20at 06:58; Start 02/14/20 at 15:00; Stop 02/15/20 at 14:59; Status DC Metoclopramide HCl (Reglan Vial) 10 mg 1X ONCE IVP Last administered on 02/15/20at 07:59; Start 02/15/20 at 08:00; Stop 02/15/20 at 08:01; Status DC Ringer's Solution 1,000 ml @ 50 mls/hr Q20H IV Last administered on 02/15/20at 07:00; Start 02/15/20 at 07:00; Stop 02/15/20 at 18:59; Status DC Ringer's Solution 1,000 ml @ 75 mls/hr 1X ONCE IV ; Start 02/15/20 at 13:30; Stop 02/16/20 at 02:49; Status DC Lidocaine HCl (Lidocaine Pf 2% Vial) 5 ml STK-MED ONCE .ROUTE ; Start 02/15/20 at 13:44; Stop 02/15/20 at 13:45; Status DC Propofol (Diprivan) 200 mg STK-MED ONCE IV ; Start 02/15/20 at 14:13; Stop 02/15/20 at 14:13; Status DC Pantoprazole Sodium (Protonix) 40 mg BIDAC PO Last administered on 02/16/20at 07:56; Start 02/15/20 at 16:30 Fentanyl Citrate (Fentanyl 2ml Vial) 50 mcg PRN Q4HRS PRN IVP PAIN Last administered on 02/16/20at 07:56; Start 02/15/20 at 16:00 Ondansetron HCl (Zofran) 4 mg PRN Q6HRS PRN IVP NAUSEA/VOMITING Last administered on 02/16/20at 00:09; Start 02/16/20 at 00:00 Multivitamins 10 ml/Thiamine HCl 100 mg/Folic Acid 1 mg/Sodium Chloride 1,011.2 ml @ 100 mls/ hr DAILY IV Last administered on 02/16/20at 11:19; Start 02/16/20 at 14:00; Stop 02/20/20 at 19:07 Chlordiazepoxide (Librium) 50 mg PRN Q1HR PRN PO For CIWA 8-14; Start 02/16/20 at 10:00 Chlordiazepoxide (Librium) 100 mg PRN Q1HR PRN PO For CIWA 15 or greater; Start 02/16/20 at 10:00 Lorazepam (Ativan Inj) 2 mg PRN Q1HR PRN IV For CIWA 8-14; Start 02/16/20 at 10:00 Haloperidol Lactate (Haldol Inj) 5 mg PRN Q4HRS PRN IVP Hallucinatns,Confusn,Delirium; Start 02/16/20 at 10:00 Lorazepam (Ativan) 0.5 mg TID PO ; Start 02/16/20 at 14:00 Oxycodone/ Acetaminophen (Percocet 5/325) 1 tab PRN Q6HRS PRN PO PAIN Last administered on 02/16/20at 11:24; Start 02/16/20 at 10:00 Pantoprazole Sodium (Protonix) 40 mg DAILYAC PO ; Start 02/17/20 at 07:30; Status UNV Sucralfate (Carafate) 1 gm QIDACHS PO Last administered on 02/16/20at 11:25; Start 02/16/20 at 11:30 Non-Formulary Medication (Sofosbuvir/ Velpatasvir (Sofosbuvir-Velpatasvir 400- 100)) 1 tab DAILY PO ; Start 02/17/20 at 09:00; Status UNV Nicotine (Nicoderm Cq 21mg) 1 patch DAILY TD ; Start 02/16/20 at 11:45; Status UNV Active Scripts Active Ativan (Lorazepam) 0.5 Mg Tablet 0.5 Mg PO TID 7 Days Percocet 5-325 Mg Tablet (Oxycodone/Acetaminophen) 1 Each Tablet 1 Tab PO PRN Q6HRS PRN 6 Days Carafate (Sucralfate) 1 Gm Tablet 1 Gm PO QIDACHS 30 Days Pantoprazole Sodium (Pantoprazole Sodium) 40 Mg Tablet.dr 40 Mg PO DAILYAC 30 Days Reported Sofosbuvir-Velpatasvir 400-100 (Sofosbuvir/Velpatasvir) 1 Each Tablet 1 Tab PO DAILY Vitals/I & O Vital Sign - Last 24 Hours 02/15/20 02/15/20 02/15/20 02/15/20 12:00 13:24 13:26 14:12 Temp 99.5 99.4 99.5 99.4 Pulse 87 93 80 Resp 18 20 16 B/P (MAP) 139/77 (97) 94/52 Pulse Ox 99 97 97 O2 Delivery Room Air Room Air Room Air O2 Flow Rate 2.0 2.0 02/15/20 02/15/20 02/15/20 02/15/20 14:27 14:42 14:56 15:30 Temp 98 100.0 98.0 100.0 Pulse 99 97 97 98 Resp 16 16 16 18 B/P (MAP) 163/53 148/84 150/72 151/77 (101) Pulse Ox 97 97 97 97 O2 Delivery Room Air Room Air Room Air Room Air 02/15/20 02/15/20 02/15/20 02/15/20 15:30 15:45 16:00 16:08 Temp 99.0 99.0 Pulse 97 93 94 Resp 16 18 B/P (MAP) 144/72 153/95 (114) 124/73 (90) Pulse Ox 97 97 O2 Delivery Room Air Room Air Room Air O2 Flow Rate 2.0 02/15/20 02/15/20 02/15/20 02/15/20 16:30 17:00 17:02 18:00 Temp 99.0 99.0 Pulse 94 98 91 Resp 18 B/P (MAP) 119/68 (85) 131/72 (91) 111/67 (82) Pulse Ox 97 O2 Delivery Room Air Room Air 02/15/20 02/15/20 02/15/20 02/15/20 20:00 20:35 20:37 21:07 Temp 99.0 99.0 Pulse 101 Resp 18 20 20 B/P (MAP) 114/64 (81) Pulse Ox 94 O2 Delivery Room Air Room Air Room Air Room Air 02/16/20 02/16/20 02/16/20 02/16/20 00:00 00:10 00:40 03:00 Temp 98.9 98.9 98.9 98.9 Pulse 89 86 Resp 18 20 18 18 B/P (MAP) 115/60 (78) 130/68 (88) Pulse Ox 94 94 O2 Delivery Room Air Room Air Room Air Room Air 02/16/20 02/16/20 02/16/20 02/16/20 03:54 04:24 07:56 07:59 Temp 97.5 97.5 Pulse 100 Resp 20 20 20 16 B/P (MAP) 145/98 (114) Pulse Ox 94 94 O2 Delivery Room Air Room Air Room Air High Flow Nasal Cannula 02/16/20 02/16/20 02/16/20 02/16/20 08:00 08:26 11:01 11:24 Temp 99.2 99.2 Pulse 104 Resp 20 16 20 B/P (MAP) 117/68 (84) Pulse Ox 94 92 92 O2 Delivery Room Air Room Air Room Air Room Air O2 Flow Rate 2.0 2.0 Intake and Output 02/15/20 02/15/20 02/16/20 15:00 23:00 07:00 Intake Total 950 ml 1525 ml 1000 ml Output Total 150 ml 250 ml Balance 800 ml 1525 ml 750 ml Problem List Problems Medical Problems: (1) Coagulopathy Status: Acute (2) Hypotension Status: Acute Assessment Shelly-Canales syndrome, 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 Prior refractory ascites, much improved after TIPS. TIPS is still patent. Gastroduodenal polyp. Not clear if this a source of symptoms as able to pass with scope. While ulcerated, never signs of any bleeding from this. Plan of Care Note Agree with advance diet as tolerated and observe. Continue PPI. Justicifation of Admission Dx: Justifications for Admission: Justification of Admission Dx: Yes JESSICA LÓPEZ MD Feb 16, 2020 11:55
[2020-02-16] MEDS: NICOTINE 21MG PATCH. TD SCH (12:08)
--- NOTE | 2020-02-16 15:43 | PN ---
DATE: 02/16/2020 SUBJECTIVE: The patient is resting, slightly propped up in bed, in no apparent distress. He is awake, alert, has had no further episodes of nausea, vomiting, had a bowel movement that is dark black according to him; however, he is tolerating his clear liquid diet without any problem. He is hungry and would like to eat. He apparently has had esophagogastroduodenoscopy which showed that he has reflux esophagitis that has improved with possible ____ disease, portal hypertensive gastropathy, probably Shelly-Canales syndrome, only tiny tear, but coagulopathy and more than expected bleeding, has duodenal diverticulum and polyp arising from just distal to pylorus ulcerated, but no bleeding and hyperplastic by prior biopsy. The recommendation was for him to start on clears and gradually advance as to continue with p.o. PPI and we advised him to stop drinking. PHYSICAL EXAMINATION: GENERAL: When I examined him this morning, he looked pale, but no jaundice, cyanosis or thyromegaly. No jugular venous distention. No lower limb edema. VITAL SIGNS: His heart rate was 100, blood pressure was 145/98, temperature 97.5, respiratory rate was 16, and oxygen saturation was 94%. HEAD, EYES, EARS, NOSE AND THROAT: Showed normocephalic, atraumatic. NECK: Supple. CARDIAC: Normal first and second heart sounds. No gallop, rub or murmur. CHEST: Clear to auscultation. No crepitation or rhonchi. ABDOMEN: Distended, soft, and nontender. NEUROLOGIC: He is definitely more awake, alert, responding appropriately. All cranial nerves are intact. He moves extremities without difficulty. He ambulates without assistance or assistive devices. His intake over the last 24 hours was 2788 and output was 3830. LABORATORY DATA: His lab work this morning showed a white cell count of 4700, hemoglobin 8.5, hematocrit 25, MCV 90 and platelet count of 42,000. His serum sodium 140, potassium 3.4, chloride 107, bicarbonate 27, anion gap of 6, BUN 11, and creatinine 0.8. Estimated GFR was 99 mL per minute. His glucose was 94. Calcium was 7.3. Total bilirubin is 3.4. AST slightly elevated. ALT and alkaline phosphatase normal. Total protein 4.8 and albumin 2. His prothrombin time was 20.6 and INR 1.8. His coronavirus by PCR was not detected. ASSESSMENT: 1. Acute blood loss anemia. 2. Acute upper gastrointestinal bleeding, probably from a Shelly-Canales tear as well as esophagitis. 3. The patient is known to have esophageal varices; however, 2 endoscopies done here showed no evidence of varices. 4. 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 5. Continued alcohol abuse. 6. Hypertension. PLAN: To advance his diet as tolerated. I did start him on alcohol withdrawal protocol. We will continue to monitor his H and H to make sure it is stable and if he remains stable tomorrow, he can be discharged home. KELSIE JUNIOR MD DR: PACO/sruthi JOB#: [id number] / [id number]
[2020-02-16] MEDS: LORazepam 0.5 MG TABLET PO SCH ×2 (15:49→19:59)
[2020-02-16 19:04] LABS: HEMATOCRIT 25.8 % (39.0-53.0); HEMOGLOBIN 8.6 g/dL (13.0-17.5)
[2020-02-16] MEDS: PIPERACILLIN/TAZOBACTAM 3.375 GM in IV NORMAL SALINE 50ML 50 ML IV SCH (21:31)
[2020-02-17 03:32] VITALS: BP 142/73
[2020-02-17] MEDS: PIPERACILLIN/TAZOBACTAM 3.375 GM in IV NORMAL SALINE 50ML 50 ML IV SCH ×4 (05:08→20:42)
[2020-02-17] MEDS: fentaNYL PF VIAL 100 MCG/2 ML VIAL IVP PRN ×4 (05:08→20:07)
[2020-02-17 05:09] LABS: HEMATOCRIT 26.7 % (39.0-53.0); HEMOGLOBIN 8.9 g/dL (13.0-17.5)
[2020-02-17 06:10] LABS: CALCIUM 7.1 mg/dL (8.5-10.1); CREATININE 0.8 mg/dL (0.7-1.3); GFR 99.6; MAGNESIUM 1.2 mg/dL (1.8-2.4)
[2020-02-17] MEDS ORDERED: PANTOPRAZOLE 40 MG TABLET.DR. PO SCH (07:30)
[2020-02-17 07:59] VITALS: BP 147/91
[2020-02-17] MEDS ORDERED: VELPATASVIR PO SCH (09:00)
[2020-02-17] MEDS ORDERED: SOFOSBUVIR PO SCH (09:00)
[2020-02-17] MEDS: NICOTINE 21MG PATCH. TD SCH (09:07)
[2020-02-17] MEDS: LORazepam 0.5 MG TABLET PO SCH ×3 (09:07→20:43)
[2020-02-17] MEDS: SUCRALFATE 1 GM TABLET. PO SCH ×4 (09:07→20:43)
[2020-02-17] MEDS: PANTOPRAZOLE 40 MG TABLET.DR. PO SCH ×2 (09:08→18:37)
--- NOTE | 2020-02-17 10:32 | PN ---
DATE: 02/17/2020 SUBJECTIVE: The patient is resting, slightly propped up in bed, in no apparent respiratory distress. He continued to complain of cough, abdominal pain and back pain. He did spike his temperature yesterday up to 101.5 and we did send 2 sets of blood culture. I did start him empirically on IV Zosyn. The patient has had no further episodes of nausea and vomiting. He is tolerating his soft diet. PHYSICAL EXAMINATION: GENERAL: When I examined him, he looked pale, but no jaundice, cyanosis or thyromegaly. No jugular venous distention. No lower limb edema. VITAL SIGNS: His heart rate was 96, blood pressure was 142/73, temperature 99, respiratory rate was 16, and oxygen saturation was 91% on room air. HEAD, EYES, EARS, NOSE AND THROAT: Showed normocephalic, atraumatic. NECK: Supple. HEART: Normal first and second heart sounds. No gallop, rub or murmur. CHEST: Clear to auscultation. No crepitation or rhonchi. ABDOMEN: Distended, soft. NEUROLOGIC: He was definitely awake, alert, responding appropriately. He moves all extremities without difficulty, has no flapping tremor. His intake over the last 24 hours was 3475, output was 400. LABORATORY DATA: As of this morning showed hemoglobin of 8.9, hematocrit 26.7. His serum sodium was 139, potassium 3, chloride 105, bicarbonate 26, anion gap of 8, BUN 6, creatinine 0.8, estimated GFR was 99 mL per minute. His glucose was 94, calcium was 7.2, magnesium was 1.2. His prothrombin time was 20.6, INR 1.8. Urinalysis was essentially unremarkable and his coronavirus-2 PCR was negative. ASSESSMENT AND PLAN: 1. Acute blood loss anemia for which he received 1 unit of packed RBCs. His H and H have remained stable. 2. Acute upper gastrointestinal bleeding, probably from Shelly-Canales tear as well as esophagitis. 3. The patient is known to have liver cirrhosis, likely due to a combination of hepatitis C and alcohol abuse. 4. He continued to drink alcohol heavily. 5. Hypertension. 6. The patient has spiked his temperature and therefore we did send blood for culture and sensitivity and also started him empirically on IV antibiotic in the form of Zosyn. I will arrange for him to have a chest x-ray and repeat all his labs again tomorrow morning and await the result of this blood culture and sensitivity. KELSIE JUNIOR MD DR: PACO/sruthi JOB#: [id number] / [id number]
--- NOTE | 2020-02-17 10:48 | PDOC ---
Infectious Disease Note Vital Sign Vital Signs Vital Signs Date Time Temp Pulse Resp B/P (MAP) Pulse Ox O2 Delivery O2 Flow Rate FiO2 02/17/20 09:33 18 95 Room Air 02/17/20 07:59 99.0 105 147/91 (109) 99.0 02/16/20 16:18 2.0 Labs Lab Laboratory Tests Test 02/16/20 17:30 02/17/20 04:10 Hemoglobin 8.6 g/dL (13.0-17.5) 8.9 g/dL (13.0-17.5) Hematocrit 25.8 % (39.0-53.0) 26.7 % (39.0-53.0) Sodium Level 139 mmol/L (136-145) Potassium Level 3.0 mmol/L (3.5-5.1) Chloride Level 105 mmol/L (98-107) Carbon Dioxide Level 26 mmol/L (21-32) Anion Gap 8 (6-14) Blood Urea Nitrogen 6 mg/dL (8-26) Creatinine 0.8 mg/dL (0.7-1.3) Estimated GFR (Cockcroft-Gault) 99.6 Glucose Level 94 mg/dL (70-99) Calcium Level 7.1 mg/dL (8.5-10.1) Magnesium Level 1.2 mg/dL (1.8-2.4) Micro Microbiology 02/14/20 Urine Culture - Final, Complete Objective Assessment PT SEEN, CONSULT DICTATED Plan Plan of Care // ROSIO HARRINGTON MD Feb 17, 2020 10:48
[2020-02-17 11:00] VITALS: BP 138/75
[2020-02-17] MEDS ORDERED: MAGNESIUM SULFATE 2GM 50 ML IV ONE (11:00)
--- NOTE | 2020-02-17 11:35 | CONS ---
DATE OF CONSULTATION: 02/17/2020 REQUESTING PHYSICIAN: Chiara Duarte MD REASON FOR CONSULTATION: Fever and chills. HISTORY OF PRESENT ILLNESS: This is a 59-year-old gentleman, who came in with alcohol intoxication. The patient also had GI bleed and anemia. The patient underwent EGD, found reflux esophagitis, question Cardenas's, Shelly-Canales syndrome, etc. The patient now spiked to 101.5 fever, hence the consultation. The patient is on Zosyn. The patient denies any nausea, vomiting, diarrhea. Denies any chest pain, shortness of breath, abdominal pain, urinary symptoms or bowel symptoms. PAST MEDICAL HISTORY: Positive for hep C. The patient is on treatment for hep C. The patient has portal hypertension, cirrhosis of liver, TIPS procedure. Also, has appendicectomy, vasectomy, vertebral L4-L5 fusion, knee arthroplasty. SOCIAL HISTORY: Negative for smoking. Still drinks heavy with his alcohol level was 167 when he came in. REVIEW OF SYSTEMS: As per HPI, all other systems reviewed are negative. PHYSICAL EXAMINATION: GENERAL: Awake gentleman, not in distress. VITAL SIGNS: Stable with T-max 101.5. HEENT: Both pupils are round and reacting. No conjunctival lesion. No lesion in the mouth. NECK: Supple, no JVP, no lymphadenopathy. LUNGS: Clear. HEART: S1, S2 regular. ABDOMEN: Benign. Abdomen has ascites with some mild tenderness. EXTREMITIES: No edema or cyanosis. SKIN: The patient does have psoriasis, the typical psoriasis rash on the lower extremities and very dry flaky skin on the upper extremities as well as on the right hand, there is what appears to be IV site infiltration with some superficial wound. Rest of the skin examination unremarkable. NEUROLOGIC: The patient is alert, awake and appropriate. No focal neurologic deficit. LABORATORY DATA: White count is 4.7 and platelets are 42,000. BUN and creatinine are normal. Urinalysis unremarkable. Alcohol level 167 on 02/13/2020. Coronavirus is negative. Urinalysis: Urine culture is negative. Chest x-ray is unremarkable. Ultrasound of the abdomen showed TIPS shunt. IMPRESSION: 1. Fever. The fever could be alcohol withdrawal. He is jittery or could be an infection from the dry flaky skin and/or IV site problem and/or even spontaneous bacterial peritonitis. 2. Alcoholism with esophageal varices, portal hypertension. 3. Cirrhosis of liver. 4. Status post transjugular intrahepatic portosystemic shunt procedure. 5. Gastrointestinal bleed. 6. Psoriasis. 7. Hepatitis C. RECOMMENDATIONS: Continue Zosyn. Add Zyvox. [place] culture, supportive care and we will continue to follow. The patient was advised to quit alcohol. Thank you very much, Dr. Duarte, for giving me the opportunity to participate in this patient's care. ROSIO HARRINGTON MD DR: IGNACIO/sruthi JOB#: [id number] / [id number]
[2020-02-17] MEDS: POTASSIUM CHLORIDE 20 MEQ TABLET.ER. PO SCH ×2 (13:29→20:43)
[2020-02-17] MEDS: MULTIVIT INFUSN,ADULT 4,VIT K 10 ML, THIAMINE INJ 100 MG, FOLIC ACID INJ 1 MG in IV NOR... IV SCH (13:30)
--- NOTE | 2020-02-17 14:00 | PDOC ---
G I PROGRESS NOTE Subjective Out of roon; assume for CXR. Objective No reports of any issues. Physical Exam No PE. Review of Relevant I have reviewed the following items clinton (where applicable) has been applied. Labs Laboratory Tests Test 02/16/20 06:29 02/16/20 17:30 02/17/20 04:10 White Blood Count 4.7 x10^3/uL (4.0-11.0) Red Blood Count 2.88 x10^6/uL (4.30-5.70) Hemoglobin 8.5 g/dL (13.0-17.5) 8.6 g/dL (13.0-17.5) 8.9 g/dL (13.0-17.5) Hematocrit 25.7 % (39.0-53.0) 25.8 % (39.0-53.0) 26.7 % (39.0-53.0) Mean Corpuscular Volume 90 fL (79-100) Mean Corpuscular Hemoglobin 30 pg (25-35) Mean Corpuscular Hemoglobin Concent 33 g/dL (31-37) Red Cell Distribution Width 17.4 % (11.5-14.5) Platelet Count 42 x10^3/uL (140-400) Prothrombin Time 20.6 SEC (11.7-14.0) Prothromb Time International Ratio 1.8 (0.8-1.1) Sodium Level 140 mmol/L (136-145) 139 mmol/L (136-145) Potassium Level 3.4 mmol/L (3.5-5.1) 3.0 mmol/L (3.5-5.1) Chloride Level 107 mmol/L (98-107) 105 mmol/L (98-107) Carbon Dioxide Level 27 mmol/L (21-32) 26 mmol/L (21-32) Anion Gap 6 (6-14) 8 (6-14) Blood Urea Nitrogen 11 mg/dL (8-26) 6 mg/dL (8-26) Creatinine 0.8 mg/dL (0.7-1.3) 0.8 mg/dL (0.7-1.3) Estimated GFR (Cockcroft-Gault) 99.6 99.6 BUN/Creatinine Ratio 14 (6-20) Glucose Level 94 mg/dL (70-99) 94 mg/dL (70-99) Calcium Level 7.3 mg/dL (8.5-10.1) 7.1 mg/dL (8.5-10.1) Total Bilirubin 3.4 mg/dL (0.2-1.0) Aspartate Amino Transf (AST/SGOT) 49 U/L (15-37) Alanine Aminotransferase (ALT/SGPT) 16 U/L (16-63) Alkaline Phosphatase 54 U/L (46-116) Total Protein 4.8 g/dL (6.4-8.2) Albumin 2.0 g/dL (3.4-5.0) Albumin/Globulin Ratio 0.7 (1.0-1.7) Magnesium Level 1.2 mg/dL (1.8-2.4) Laboratory Tests Test 02/16/20 17:30 02/17/20 04:10 Hemoglobin 8.6 g/dL (13.0-17.5) 8.9 g/dL (13.0-17.5) Hematocrit 25.8 % (39.0-53.0) 26.7 % (39.0-53.0) Sodium Level 139 mmol/L (136-145) Potassium Level 3.0 mmol/L (3.5-5.1) Chloride Level 105 mmol/L (98-107) Carbon Dioxide Level 26 mmol/L (21-32) Anion Gap 8 (6-14) Blood Urea Nitrogen 6 mg/dL (8-26) Creatinine 0.8 mg/dL (0.7-1.3) Estimated GFR (Cockcroft-Gault) 99.6 Glucose Level 94 mg/dL (70-99) Calcium Level 7.1 mg/dL (8.5-10.1) Magnesium Level 1.2 mg/dL (1.8-2.4) Microbiology 02/14/20 Urine Culture - Final, Complete Hemoglobin stable. Vitals/I & O Vital Sign - Last 24 Hours 02/16/20 02/16/20 02/16/20 02/16/20 15:14 15:48 16:18 19:00 Temp 99.0 101.5 99.0 101.5 Pulse 97 95 Resp 20 B/P (MAP) 121/68 (85) 128/83 (98) Pulse Ox 92 92 92 91 O2 Delivery Room Air Room Air Room Air Room Air O2 Flow Rate 2.0 02/16/20 02/16/20 02/16/20 02/16/20 19:55 20:00 20:25 23:01 Temp 98.6 98.6 Pulse 92 Resp 16 18 18 B/P (MAP) 152/97 (115) Pulse Ox 92 O2 Delivery Room Air Room Air Room Air Room Air 02/17/20 02/17/20 02/17/20 02/17/20 03:32 05:08 05:38 07:59 Temp 99.0 99.0 99.0 99.0 Pulse 96 105 Resp 18 15 16 18 B/P (MAP) 142/73 (96) 147/91 (109) Pulse Ox 91 95 O2 Delivery Room Air Room Air Room Air Room Air 02/17/20 02/17/20 02/17/20 08:00 09:33 11:00 Temp 99.4 99.4 Pulse 105 Resp 18 18 B/P (MAP) 138/75 (96) Pulse Ox 95 94 O2 Delivery Room Air Room Air Room Air Intake and Output 02/16/20 02/16/20 02/17/20 15:00 23:00 07:00 Intake Total 945 ml Output Total 150 ml 600 ml Balance 795 ml -600 ml Problem List Problems Medical Problems: (1) Coagulopathy Status: Acute (2) Hypotension Status: Acute Assessment Shelly-Canales syndrome, stable. Cirrhosis Alcoholism, most pressing issue currently. Plan of Care Note Continue diet, etc. Needs to stop drinking. Justicifation of Admission Dx: Justifications for Admission: Justification of Admission Dx: Yes JESSICA LÓPEZ MD Feb 17, 2020 14:00
--- NOTE | 2020-02-17 14:00 | NUR ---
Noted patient heartrate increased to 130's (from upper 90's,low 100's at rest) after going to radiology. Patient stated "I get tachycardia" Patient discussed that his heartrate goes up when he moves about, but is resting most of the time.
--- NOTE | 2020-02-17 15:09 | RAD ---
EXAM: CHEST PA LATERAL INDICATION: Reason: cough and fever ??? aspiration pneumo ia / Spl. Instructions: / History: . TECHNIQUE: PA and lateral views COMPARISON: Chest x-ray 02/13/2020 FINDINGS: The heart size is normal. The great vessels appear unremarkable. There is no hilar or mediastinal mass. Lungs show development of platelike atelectasis in the lingula and streaky densities at the bilateral lung bases that are new in the interval. Although no pneumothorax is evident, small bilateral pleural effusions have developed.. There are no significant osseous abnormalities. Stable event monitor in the anterior left chest wall. IMPRESSION: New small bilateral pleural effusions with densities of the bilateral lung bases. Cannot exclude pneumonia with parapneumonic effusions. Electronically signed by: Faith Naqvi MD (02/17/2020 3:06 PM) [id number]
[2020-02-17] MEDS: MAGNESIUM OXIDE 400 MG TABLET PO SCH ×2 (15:21→20:44)
[2020-02-17 15:59] VITALS: BP 123/75
--- NOTE | 2020-02-17 16:00 | NUR ---
Have removed nicotine patch from right arm, pt in agreement, stating "I thought we might be doing that". Patient in good spirits. Occasional sl moist non productive cough. Pt reports he has had chills at night, and runny nose. Has redness around eyes, but sclera clear. Given cool moist washcloth for comfort.
[2020-02-17 19:00] VITALS: BP 114/62
[2020-02-17 21:10] LABS: INFLUENZA A PATIENT NEGATIVE (NEGATIVE); INFLUENZA B PATIENT NEGATIVE (NEGATIVE)
[2020-02-17 23:00] VITALS: BP 116/63
[2020-02-18] MEDS: fentaNYL PF VIAL 100 MCG/2 ML VIAL IVP PRN ×6 (02:08→23:21)
[2020-02-18 03:01] VITALS: BP 132/71
--- NOTE | 2020-02-18 04:41 | NUR ---
PT REMAIN ALERT AND ORIENT TIMES FOUR. VSS, AFEBRILE. SR PER MONITOR. FENTANYL GIVEN PER FOR PAIN WITH PARTIAL RELIEF PER PT. PT SLEEPY, YET EASY TO AROUSE. WHEN PT IS AMBULATING OR REPOSITIONING IN THE BED HR INCREASES TO 120-130'S. TOLERATING SOFT DIET. SLOW PROFRESS TOWARDS DC GOALS, WILL CONTINUE TO MONTIOR.
[2020-02-18] MEDS: PIPERACILLIN/TAZOBACTAM 3.375 GM in IV NORMAL SALINE 50ML 50 ML IV SCH ×4 (06:03→23:21)
[2020-02-18 06:36] LABS: ALBUMIN 1.9 g/dL (3.4-5.0); ALBUMIN/GLOBULIN RATIO 0.7 (1.0-1.7); CALCIUM 7.1 mg/dL (8.5-10.1); CREATININE 0.9 mg/dL (0.7-1.3); POTASSIUM 3.2 mmol/L (3.5-5.1); TOTAL BILIRUBIN 3.5 mg/dL (0.2-1.0); TOTAL PROTEIN 4.7 g/dL (6.4-8.2)
[2020-02-18 06:55] LABS: HEMATOCRIT 25.7 % (39.0-53.0); HEMOGLOBIN 8.6 g/dL (13.0-17.5); RED BLOOD COUNT 2.84 x10^6/uL (4.30-5.70); WHITE BLOOD COUNT 6.4 x10^3/uL (4.0-11.0)
[2020-02-18 07:00] VITALS: BP 107/71
[2020-02-18] MEDS ORDERED: MAGNESIUM SULFATE 2GM 50 ML IV ONE (07:30)
[2020-02-18] MEDS: NICOTINE 21MG PATCH. TD SCH (09:14)
[2020-02-18] MEDS: SUCRALFATE 1 GM TABLET. PO SCH ×4 (09:14→20:57)
[2020-02-18] MEDS: MAGNESIUM OXIDE 400 MG TABLET PO SCH ×3 (09:14→20:56)
[2020-02-18] MEDS: PANTOPRAZOLE 40 MG TABLET.DR. PO SCH ×2 (09:15→16:38)
[2020-02-18] MEDS: POTASSIUM CHLORIDE 20 MEQ TABLET.ER. PO SCH ×3 (09:15→20:57)
--- NOTE | 2020-02-18 09:42 | PDOC ---
Infectious Disease Note Subjective Subjective Patient is feeling much better ROS ROS No nausea vomiting diarrhea chest pain shortness of breath he does have chronic abdominal pain Vital Sign Vital Signs Vital Signs Date Time Temp Pulse Resp B/P (MAP) Pulse Ox O2 Delivery O2 Flow Rate FiO2 02/18/20 07:00 99.2 90 17 107/71 (83) 96 Room Air 99.2 02/18/20 02:38 2.0 Physical Exam PHYSICAL EXAM GENERAL: Awake gentleman, not in distress. VITAL SIGNS: Stable HEENT: Both pupils are round and reacting. No conjunctival lesion. No lesion in the mouth. NECK: Supple, no JVP, no lymphadenopathy. LUNGS: Clear. HEART: S1, S2 regular. ABDOMEN: Benign. Abdomen has ascites with some mild tenderness. EXTREMITIES: No edema or cyanosis. SKIN: The patient does have psoriasis, the typical psoriasis rash on the lower extremities and very dry flaky skin on the upper extremities as well as on the right hand, there is what appears to be IV site infiltration with some superficial wound. Rest of the skin examination unremarkable. NEUROLOGIC: The patient is alert, awake and appropriate. No focal neurologic deficit. Labs Lab Laboratory Tests Test 02/17/20 18:40 02/18/20 05:10 Influenza Type A Antigen Negative (NEGATIVE) Influenza Type B Antigen Negative (NEGATIVE) White Blood Count 6.4 x10^3/uL (4.0-11.0) Red Blood Count 2.84 x10^6/uL (4.30-5.70) Hemoglobin 8.6 g/dL (13.0-17.5) Hematocrit 25.7 % (39.0-53.0) Mean Corpuscular Volume 91 fL (79-100) Mean Corpuscular Hemoglobin 30 pg (25-35) Mean Corpuscular Hemoglobin Concent 34 g/dL (31-37) Red Cell Distribution Width 18.0 % (11.5-14.5) Platelet Count 49 x10^3/uL (140-400) Sodium Level 137 mmol/L (136-145) Potassium Level 3.2 mmol/L (3.5-5.1) Chloride Level 105 mmol/L (98-107) Carbon Dioxide Level 27 mmol/L (21-32) Anion Gap 5 (6-14) Blood Urea Nitrogen 5 mg/dL (8-26) Creatinine 0.9 mg/dL (0.7-1.3) Estimated GFR (Cockcroft-Gault) 87.0 BUN/Creatinine Ratio 6 (6-20) Glucose Level 99 mg/dL (70-99) Calcium Level 7.1 mg/dL (8.5-10.1) Magnesium Level 1.6 mg/dL (1.8-2.4) Total Bilirubin 3.5 mg/dL (0.2-1.0) Aspartate Amino Transf (AST/SGOT) 43 U/L (15-37) Alanine Aminotransferase (ALT/SGPT) 19 U/L (16-63) Alkaline Phosphatase 62 U/L (46-116) Total Protein 4.7 g/dL (6.4-8.2) Albumin 1.9 g/dL (3.4-5.0) Albumin/Globulin Ratio 0.7 (1.0-1.7) Micro Microbiology 02/14/20 Urine Culture - Final, Complete Blood culture 1 out of 4 gram-positive cocci Objective Assessment IMPRESSION: 1. Fever. The fever could be alcohol withdrawal. He is jittery or could be an infection from the dry flaky skin and/or IV site problem and/or even spontaneous bacterial peritonitis. 2. Alcoholism with esophageal varices, portal hypertension. 3. Cirrhosis of liver. 4. Status post transjugular intrahepatic portosystemic shunt procedure. 5. Gastrointestinal bleed. 6. Psoriasis. 7. Hepatitis C. 8 blood culture 1 out of 4 gram-positive cocci most likely to be contaminant Plan Plan of Care Continue antibiotics. Soon to be able to discharge home ROSIO HARRINGTON MD Feb 18, 2020 09:42
[2020-02-18] MEDS: LORazepam 0.5 MG TABLET PO SCH ×3 (10:42→20:56)
[2020-02-18] MEDS: MULTIVIT INFUSN,ADULT 4,VIT K 10 ML, THIAMINE INJ 100 MG, FOLIC ACID INJ 1 MG in IV NOR... IV SCH (10:43)
--- NOTE | 2020-02-18 10:54 | PDOC ---
Date of Service: DATE: 02/18/20 TIME: 10:45 Subjective: Subjective: No bleeding, no pain aside from baseline chronic abd pain, wants to leave. Objective: Objective: D/w Dr. Key. Vital Signs: Vital Signs Date Time Temp Pulse Resp B/P (MAP) Pulse Ox O2 Delivery O2 Flow Rate FiO2 02/18/20 10:42 Room Air 02/18/20 07:00 99.2 90 17 107/71 (83) 96 99.2 02/18/20 02:38 2.0 Labs: Laboratory Tests Test 02/17/20 18:40 02/18/20 05:10 Influenza Type A Antigen Negative Influenza Type B Antigen Negative White Blood Count 6.4 x10^3/uL Red Blood Count 2.84 x10^6/uL Hemoglobin 8.6 g/dL Hematocrit 25.7 % Mean Corpuscular Volume 91 fL Mean Corpuscular Hemoglobin 30 pg Mean Corpuscular Hemoglobin Concent 34 g/dL Red Cell Distribution Width 18.0 % Platelet Count 49 x10^3/uL Sodium Level 137 mmol/L Potassium Level 3.2 mmol/L Chloride Level 105 mmol/L Carbon Dioxide Level 27 mmol/L Anion Gap 5 Blood Urea Nitrogen 5 mg/dL Creatinine 0.9 mg/dL Estimated GFR (Cockcroft-Gault) 87.0 BUN/Creatinine Ratio 6 Glucose Level 99 mg/dL Calcium Level 7.1 mg/dL Magnesium Level 1.6 mg/dL Total Bilirubin 3.5 mg/dL Aspartate Amino Transf (AST/SGOT) 43 U/L Alanine Aminotransferase (ALT/SGPT) 19 U/L Alkaline Phosphatase 62 U/L Total Protein 4.7 g/dL Albumin 1.9 g/dL Albumin/Globulin Ratio 0.7 BLOOD CULTURE Final GRAM POSITIVE COCCI IN CLUSTERS, SUGGESTIVE OF STAPH, URINE CULTURE Final Final No Growth on 02/16/20 at 0731 BLOOD CULTURE Preliminary NO GROWTH AFTER 1 DAY Imaging: CXR 02/16 IMPRESSION: New small bilateral pleural effusions with densities of the bilateral lung bases. Cannot exclude pneumonia with parapneumonic effusions. EGD 02/14 E--NO VARICES. Esophagitis much improved from last EGD. Some tongues of salmon-colored mucosa suggestive of possible Cardenas's distally. Not biopsied due to recent bleeding and coagulopathy. At GEJ, spot of blood suggestive of recent small M-W tear. G--Portal gastropathy. Pyloric polyp as before ~12-15mm with clean-based ulcer atop ~7-8mm. No signs of bleeding or potential bleeding. Able to pass pylorus fairly easily. D--Diverticulum in second portion; explored with scope and no lesions within. IMP: Reflux esophagitis, improved, but with ?Cardenas's. Portal hypertensive gastropathy. 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 Duodenal diverticulum Polyp, arising just distal to pylorus, ulcerated but no bleeding and hyperplastic by prior biopsies. Don't think this is obstructing. REC: Clears, gradually advance. PO PPI BID STOP DRINKING Given non-compliance, not really good candidate for Cardenas's surveillance even if present. Abd Doppler 02/13 IMPRESSION: Limited examination demonstrating patency of the TIPS shunt with velocities as described, all within normal limits but relative increase ofthe portal and compared with the middle and hepatic ends. Assessment on follow-up is recommended to confirm absence of proximal stenosis. 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 Needs to stop drinking as counseled many many times. Goes to [facility] for routine 'scopes and appts, comes here for emergencies. Justicifation of Admission Dx: Justifications for Admission: Justification of Admission Dx: Yes ANTOINETTE SALDANA Feb 18, 2020 10:54
[2020-02-18 11:00] VITALS: BP 139/73
--- NOTE | 2020-02-18 11:44 | PN ---
DATE: 02/18/2020 SUBJECTIVE: The patient is resting, slightly propped up in bed, sleeping comfortably, is arousable. On questioning him, he denied any complaint. The nursing staff did not voice any concern except that he continued to spike his temperature and as of last night went up to 100.3. So far, all his cultures are negative. His chest x-ray, however, showed that the patient has new small bilateral pleural effusions and densities of the bilateral lung bases and the radiologist stated that he cannot exclude pneumonia with parapneumonic effusion. PHYSICAL EXAMINATION: GENERAL: On examining him this morning, he was pale, but no jaundice, cyanosis or thyromegaly. No jugular venous distention or limb edema. VITAL SIGNS: His heart rate was 94, blood pressure was 132/71, temperature 98.1, respiratory rate was 18, and oxygen saturation was 92% on room air. HEAD, EYES, EARS, NOSE AND THROAT: Showed normocephalic, atraumatic. NECK: Supple. HEART: Normal first and second heart sounds. No gallop or murmur. CHEST: Clear to auscultation. No crepitation or rhonchi. ABDOMEN: Distended, soft, and nontender. NEUROLOGIC: He was sleepy, but arousable. All his cranial nerves are intact. He moves extremities without difficulty. His intake was 945 and output was 750. LABORATORY DATA: As of this morning, his serum sodium was 137, potassium 3.2, chloride 105, bicarbonate 27, anion gap of 5, BUN 5, and creatinine 0.9. Estimated GFR was 87 mL per minute. His glucose 99, calcium 7.1. Magnesium continued to be low at 1.6. Total bilirubin 3.5; however, AST, ALT, and alkaline phosphatase were normal. Total protein was 4.7. Albumin was 1.9. His white cell count was 6400, hemoglobin 8.6, hematocrit 25.7, MCV 91, and platelet count 49,000. His coronavirus by PCR was negative. His influenza A and B were negative. ASSESSMENT: 1. Acute blood loss anemia for which he received 1 unit of packed RBCs, his hemoglobin and hematocrit remained stable. 2. Acute upper gastrointestinal bleeding, found to be secondary to Shelly-Canales tear as well as esophagitis. 3. The patient is known to have liver cirrhosis likely due to combination of hepatitis C and alcohol abuse. 4. He continued to drink alcohol heavily. 5. Hypertension. 6. The patient did spike his temperature and therefore we did armando culture him and start him empirically on Zosyn. He was seen in consultation by Infectious Disease. We will add Zyvox. So far, all his blood cultures are negative. PLAN: Obviously to continue with IV antibiotic. He continued to have mild hypokalemia as well as hypomagnesemia and we will continue with alcohol withdrawal protocol. KELSIE JUNIOR MD DR: PACO/sruthi JOB#: [id number] / [id number]
--- NOTE | 2020-02-18 12:22 | NUR ---
DEON following. Spoke with RN and reviewed chart. Pt from home. Pt remains on IV Zosyn and room air. Pt's diet advanced to GI soft. Blood cultures came back positive and ID consulted. Pt not ready for discharge. SW following. Addendum: 02/18/20 at 1514 by DAMIAN MCLEAN SW [facility] patientRobyn with discharge planning to follow this pt. No further needs from this SW.
[2020-02-18 15:00] VITALS: BP 117/68
[2020-02-18 19:00] VITALS: BP 131/77
[2020-02-18] MEDS: LACTOBACILLUS RHAMNOSUS GG 1 CAPSULE. PO SCH (20:56)
[2020-02-18 23:00] VITALS: BP 133/79
[2020-02-19 03:00] VITALS: BP 129/72
[2020-02-19] MEDS: fentaNYL PF VIAL 100 MCG/2 ML VIAL IVP PRN ×3 (03:38→12:59)
[2020-02-19] MEDS: SUCRALFATE 1 GM TABLET. PO SCH ×2 (06:34→12:59)
[2020-02-19] MEDS: PIPERACILLIN/TAZOBACTAM 3.375 GM in IV NORMAL SALINE 50ML 50 ML IV SCH (06:34)
[2020-02-19] MEDS: PANTOPRAZOLE 40 MG TABLET.DR. PO SCH (06:35)
[2020-02-19 07:00] VITALS: BP 151/84
[2020-02-19] MEDS: NICOTINE 21MG PATCH. TD SCH (08:17)
[2020-02-19] MEDS: LACTOBACILLUS RHAMNOSUS GG 1 CAPSULE. PO SCH (08:18)
[2020-02-19] MEDS: LORazepam 0.5 MG TABLET PO SCH ×2 (08:18→12:59)
[2020-02-19] MEDS: POTASSIUM CHLORIDE 20 MEQ TABLET.ER. PO SCH ×2 (08:18→12:59)
[2020-02-19] MEDS: MAGNESIUM OXIDE 400 MG TABLET PO SCH ×2 (08:18→12:59)
[2020-02-19 08:33] LABS: HEMATOCRIT 27.7 % (39.0-53.0); HEMOGLOBIN 9.2 g/dL (13.0-17.5)
[2020-02-19 08:46] LABS: CALCIUM 7.3 mg/dL (8.5-10.1); CREATININE 0.8 mg/dL (0.7-1.3); GFR 99.6; MAGNESIUM 1.6 mg/dL (1.8-2.4); POTASSIUM 4.2 mmol/L (3.5-5.1)
--- NOTE | 2020-02-19 09:21 | PDOC ---
Infectious Disease Note Subjective Subjective Patient is feeling much better Vital Sign Vital Signs Vital Signs Date Time Temp Pulse Resp B/P (MAP) Pulse Ox O2 Delivery O2 Flow Rate FiO2 02/19/20 08:18 Room Air 02/19/20 04:08 18 95 02/19/20 03:00 99.2 100 129/72 (91) 99.2 02/18/20 23:51 2.0 Physical Exam PHYSICAL EXAM GENERAL: Awake gentleman, not in distress. VITAL SIGNS: Stable HEENT: Both pupils are round and reacting. No conjunctival lesion. No lesion in the mouth. NECK: Supple, no JVP, no lymphadenopathy. LUNGS: Clear. HEART: S1, S2 regular. ABDOMEN: Benign. Abdomen has ascites with some mild tenderness. EXTREMITIES: No edema or cyanosis. SKIN: The patient does have psoriasis, the typical psoriasis rash on the lower extremities and very dry flaky skin on the upper extremities as well as on the right hand, there is what appears to be IV site infiltration with some superficial wound. Rest of the skin examination unremarkable. NEUROLOGIC: The patient is alert, awake and appropriate. No focal neurologic deficit. Labs Lab Laboratory Tests Test 02/19/20 08:02 Hemoglobin 9.2 g/dL (13.0-17.5) Hematocrit 27.7 % (39.0-53.0) Sodium Level 136 mmol/L (136-145) Potassium Level 4.2 mmol/L (3.5-5.1) Chloride Level 105 mmol/L (98-107) Carbon Dioxide Level 27 mmol/L (21-32) Anion Gap 4 (6-14) Blood Urea Nitrogen 3 mg/dL (8-26) Creatinine 0.8 mg/dL (0.7-1.3) Estimated GFR (Cockcroft-Gault) 99.6 Glucose Level 102 mg/dL (70-99) Calcium Level 7.3 mg/dL (8.5-10.1) Magnesium Level 1.6 mg/dL (1.8-2.4) Micro Microbiology 02/14/20 Urine Culture - Final, Complete Blood culture 1 out of 4 gram-positive cocci Objective Assessment IMPRESSION: 1. Fever. The fever could be alcohol withdrawal. He is jittery or could be an infection from the dry flaky skin and/or IV site problem and/or even spontaneous bacterial peritonitis. 2. Alcoholism with esophageal varices, portal hypertension. 3. Cirrhosis of liver. 4. Status post transjugular intrahepatic portosystemic shunt procedure. 5. Gastrointestinal bleed. 6. Psoriasis. 7. Hepatitis C. 8 blood culture 1 out of 4 gram-positive cocci most likely to be contaminant Plan Plan of Care Continue antibiotics. Soon to be able to discharge home ROSIO HARRINGTON MD Feb 19, 2020 09:21
[2020-02-19] MEDS ORDERED: oxyCODONE IR 5 MG TABLET PO PRN (09:30)
[2020-02-19] MEDS: MULTIVIT INFUSN,ADULT 4,VIT K 10 ML, THIAMINE INJ 100 MG, FOLIC ACID INJ 1 MG in IV NOR... IV SCH (09:43)
--- NOTE | 2020-02-19 10:10 | PN ---
DATE: 02/19/2020 SUBJECTIVE: The patient is resting, slightly propped up in bed, in no apparent distress. He is awake, alert. Has had no further episode of nausea or vomiting. No hematemesis or melena. He continued to have abdominal pain. OBJECTIVE: VITAL SIGNS: His heart rate was 100, blood pressure was 129/72, temperature 99.2, respiratory rate was 20, and oxygen saturation was 95%. HEENT: Showed normocephalic, atraumatic. NECK: Supple. HEART: Showed normal first and second heart sounds. No gallop, rub or murmur. CHEST: Clear to auscultation. No crepitation or rhonchi. ABDOMEN: Distended, soft. NEUROLOGIC: He is grossly intact. His intake and output is incompletely recorded. His hemoglobin was 9.2, hematocrit 27.7. His chemistry showed a serum sodium 136, potassium 4.2, chloride 105, bicarbonate 27, anion gap of 4, BUN 3, creatinine 0.8, estimated GFR was 99 mL per minute. His glucose was 102, calcium was 7.3, magnesium was 1.6. ASSESSMENT: 1. Acute blood loss anemia, for which he received 1 unit of packed RBCs. His hemoglobin and hematocrit are remained stable. 2. Acute upper gastrointestinal bleeding, found to be secondary to Shelly-Canales tear as well as esophagitis. 3. The patient is known to have liver cirrhosis likely due to combination of hepatitis C and alcohol abuse. 4. He continues to drink alcohol heavily. 5. Hypertension. 6. The patient did spike his temperature and therefore we did armando-culture and start him empirically on Zosyn and Zyvox is added by Infectious Disease specialist. His blood culture has grown Gram-positive cocci in clusters. The identification and sensitivity is still pending. PLAN: To continue the IV antibiotic. Continue with alcohol withdrawal protocol. Continue to replete his potassium and magnesium and continue with pain management. Again hopefully tomorrow he can be discharged once we have the result of the culture and sensitivity. KELSIE JUNIOR MD DR: PACO/sruthi JOB#: [id number] / [id number]
--- NOTE | 2020-02-19 10:53 | PDOC ---
Infectious Disease Note Subjective Subjective Patient is feeling much better ROS ROS No nausea vomiting diarrhea abdominal pain Vital Sign Vital Signs Vital Signs Date Time Temp Pulse Resp B/P (MAP) Pulse Ox O2 Delivery O2 Flow Rate FiO2 02/19/20 09:42 Room Air 02/19/20 07:00 99.4 105 18 151/84 (106) 98 99.4 02/18/20 23:51 2.0 Physical Exam PHYSICAL EXAM GENERAL: Awake gentleman, not in distress. VITAL SIGNS: Stable HEENT: Both pupils are round and reacting. No conjunctival lesion. No lesion in the mouth. NECK: Supple, no JVP, no lymphadenopathy. LUNGS: Clear. HEART: S1, S2 regular. ABDOMEN: Benign. Abdomen has ascites with some mild tenderness. EXTREMITIES: No edema or cyanosis. SKIN: The patient does have psoriasis, the typical psoriasis rash on the lower extremities and very dry flaky skin on the upper extremities as well as on the right hand, there is what appears to be IV site infiltration with some superficial wound. Rest of the skin examination unremarkable. NEUROLOGIC: The patient is alert, awake and appropriate. No focal neurologic deficit. Labs Lab Laboratory Tests Test 02/19/20 08:02 Hemoglobin 9.2 g/dL (13.0-17.5) Hematocrit 27.7 % (39.0-53.0) Sodium Level 136 mmol/L (136-145) Potassium Level 4.2 mmol/L (3.5-5.1) Chloride Level 105 mmol/L (98-107) Carbon Dioxide Level 27 mmol/L (21-32) Anion Gap 4 (6-14) Blood Urea Nitrogen 3 mg/dL (8-26) Creatinine 0.8 mg/dL (0.7-1.3) Estimated GFR (Cockcroft-Gault) 99.6 Glucose Level 102 mg/dL (70-99) Calcium Level 7.3 mg/dL (8.5-10.1) Magnesium Level 1.6 mg/dL (1.8-2.4) Micro Microbiology 02/14/20 Urine Culture - Final, Complete Blood culture 1 out of 4 gram-positive cocci Objective Assessment IMPRESSION: 1. Fever. The fever could be alcohol withdrawal. He is jittery or could be an infection from the dry flaky skin and/or IV site problem and/or even spontaneous bacterial peritonitis. 2. Alcoholism with esophageal varices, portal hypertension. 3. Cirrhosis of liver. 4. Status post transjugular intrahepatic portosystemic shunt procedure. 5. Gastrointestinal bleed. 6. Psoriasis. 7. Hepatitis C. 8 blood culture 1 out of 4 gram-positive cocci most likely to be contaminant Plan Plan of Care ME antibiotic. Okay to ME home ROSIO HARRINGTON MD Feb 19, 2020 10:53
[2020-02-19 11:00] VITALS: BP 124/68
--- NOTE | 2020-02-19 12:38 | PDOC ---
Date of Service: DATE: 02/19/20 TIME: 12:37 Subjective: Subjective: Ready to leave, no GI complaints. Objective: Vital Signs: Vital Signs Date Time Temp Pulse Resp B/P (MAP) Pulse Ox O2 Delivery O2 Flow Rate FiO2 02/19/20 11:00 99.8 103 18 124/68 (86) 94 Room Air 99.8 02/18/20 23:51 2.0 Labs: Laboratory Tests Test 02/19/20 08:02 Hemoglobin 9.2 g/dL Hematocrit 27.7 % Sodium Level 136 mmol/L Potassium Level 4.2 mmol/L Chloride Level 105 mmol/L Carbon Dioxide Level 27 mmol/L Anion Gap 4 Blood Urea Nitrogen 3 mg/dL Creatinine 0.8 mg/dL Estimated GFR (Cockcroft-Gault) 99.6 Glucose Level 102 mg/dL Calcium Level 7.3 mg/dL Magnesium Level 1.6 mg/dL PE: GEN: NAD LUNGS: CTAB HEART: RRR ABD: S/ND/NT NEURO/PSYCH: A & O 3 A/P: Hep C/alcoholic cirrhosis s/p TIPS w/ recurrent bleeding -- Dc per primary on PPI. Stop drinking. Justicifation of Admission Dx: Justifications for Admission: Justification of Admission Dx: Yes ANTOINETTE SALDANA Feb 19, 2020 12:38
--- NOTE | 2020-02-19 14:49 | DS ---
DATE OF DISCHARGE: 02/19/2020 HOSPITAL COURSE: The patient is a 59-year-old male patient who yet again came with recurrent bouts of nausea, vomiting, hematemesis, melena and abdominal pain. His H and H on arrival was 5.8 and 18 and he had received 2 units of packed RBCs. He was initially kept n.p.o., IV fluid and Protonix drip. He underwent esophagogastroduodenoscopy which showed that he has Shelly-Canales tear as well as esophagitis. He has also hypertensive gastropathy and duodenal polyp that is not bleeding. The patient was started on a clear liquid diet and advance as tolerated. He did spike his temperature and was seen in consultation by the Infectious Disease specialist; however, he grew Gram-positive cocci identified as Staphylococcus hominis and therefore all the antibiotics were discontinued. The patient will be discharged home. We have counseled him numerous times about quitting alcohol as this is probably the 4th or 5th time coming with GI bleed. PHYSICAL EXAMINATION: GENERAL: When I saw him this afternoon, he looked well and was clearly in no apparent respiratory distress. Pale, no jaundice, cyanosis or thyromegaly. No jugular venous distention or limb edema. VITAL SIGNS: Her heart rate was 103, blood pressure was 124/68, temperature 99.8, respiratory rate was 18 and oxygen saturation was 94%. The rest of clinical exam is stable. LABORATORY DATA: This morning showed hemoglobin 9.2, hematocrit 27.7 with normal white cell count and platelets 49,000. His chemistry showed a serum sodium 136, potassium 4.2, chloride 105, bicarbonate 27, anion gap of 4, BUN 3, creatinine 0.8, estimated GFR was 99 mL per minute. His glucose 102, calcium was 7.3, magnesium was 1.6. DISCHARGE MEDICATIONS: He was discharged home to continue on following medications: Lorazepam 0.5 mg 3 times a day, oxycodone/APAP 5/325 one tablet every 6 hours as needed, Protonix 40 mg daily. He is sofosbuvir-velpatasvir 400-100 one tablet daily for hepatitis and sucralfate 1 gram 4 times a day before meals and bedtime. FINAL DISCHARGE DIAGNOSES: 1. Acute blood loss anemia due to Shelly-Canales tear, esophagitis as well as he was found also to have hypertensive gastropathy. He is known to have other medical problems include acute upper gastrointestinal bleeding secondary to Shelly-Canales tear as well as esophagitis. The patient is known to have liver cirrhosis likely due to combination of hepatitis C and alcohol abuse. 2. He continued to drink alcohol heavily. 3. Hypertension. 4. The patient did spike his temperature, it could be multifactorial; however, his blood culture showed growth of gram-positive cocci in 1/4 bottles, likely a contaminant. He was seen in consultation by the Infectious Disease specialist and all his antibiotics were discontinued. He was advised numerous times about quitting alcohol. KELSIE JUNIOR MD DR: PACO/sruthi JOB#: [id number] / [id number]
--- NOTE | 2020-02-19 15:54 | NUR ---
Discharge Note: Patient was discharged home with self care. Patients IV's were discontinued without any complications. Patient was given discharge summary/instructions, follow-ups, prescriptions and educational material. Patient did not have any further questions or concerns. Patient was taken down to the main entrance via wheelchair with all personal belongings accompanied by TERESE El, where his son was waiting for him to take him home.
== END 2020-02-19 15:57 | disposition home or self-care (01) | DRG 368 ==
LOC: ER 20:11 → ED HOLD 21:15 → 1 WEST ICU 02-14 00:45 → 5 NORTH 02-15 12:08
PROVIDERS: ADMIT Internal Medicine; ATTEND Internal Medicine
PROC: 30233N1 Transfusion of Nonautologous Red Blood Cells into Peripheral Vein, Percutaneous Approach (ICD-10-PCS; 2020-02-13)
PROC: 30233R1 Transfusion of Nonautologous Platelets into Peripheral Vein, Percutaneous Approach (ICD-10-PCS; 2020-02-13)
PROC: 0DB98ZZ Excision of Duodenum, Via Natural or Artificial Opening Endoscopic (ICD-10-PCS; principal; 2020-02-15 14:00)
DX: K22.6 Gastro-esophageal laceration-hemorrhage syndrome (principal); E43 Unspecified severe protein-calorie malnutrition; D62 Acute posthemorrhagic anemia; D68.4 Acquired coagulation factor deficiency; K76.6 Portal hypertension; Z68.34 Body mass index [BMI] 34.0-34.9, adult; D69.6 Thrombocytopenia, unspecified; F10.229 Alcohol dependence with intoxication, unspecified; F17.210 Nicotine dependence, cigarettes, uncomplicated; I10 Essential (primary) hypertension; K22.70 Barrett's esophagus without dysplasia; K20.91 Esophagitis, unspecified with bleeding; K57.10 Diverticulosis of small intestine without perforation or abscess without bleeding; K70.30 Alcoholic cirrhosis of liver without ascites; L40.9 Psoriasis, unspecified; M15.9 Polyosteoarthritis, unspecified; Y90.6 Blood alcohol level of 120-199 mg/100 ml; Z96.652 Presence of left artificial knee joint; K21.9 Gastro-esophageal reflux disease without esophagitis; I95.9 Hypotension, unspecified; Z20.828 Contact with and (suspected) exposure to other viral communicable diseases; K31.9 Disease of stomach and duodenum, unspecified; Z87.19 Personal history of other diseases of the digestive system; Z98.1 Arthrodesis status; Z90.49 Acquired absence of other specified parts of digestive tract
CPT/HCPCS: 36415; 36430; 43235; 71045; 71046; 80048; 80053; 81001; 83690; 83735; 85014; 85018; 85025; 85027; 85610; 85730; 86850; 86900; 86901; 86920; 86927; 87040; 87086; 87205; 87426; 87804; 90471; 90686; 93005; 93976; 96365; 96372; 96375; 96376; C9113; G0480; J0500; J2020; J2405; J2543; J2704; J2765; J3010; J3411; J3475; J3490; J7030; J7120; P9016; P9017; 99291-25; G0378; U0003-CS

== ENCOUNTER 2020-04-14 18:59 | Observation (INO) | payer MEDICARE, OTHER ==
[~2020-04-14] VITALS: Ht 177.8 cm; Wt 75.0 kg
[~2020-04-14 18:59] MED LIST changes: +METO25TA4 PO; +ONDA4TAB7 PO; +PANT20TA2 PO
[2020-04-14 19:55] LABS: HEMATOCRIT 29.3 % (39.0-53.0); HEMOGLOBIN 9.9 g/dL (13.0-17.5); RED BLOOD COUNT 3.43 x10^6/uL (4.30-5.70); RED CELL DISTRIBUTION WIDTH 16.8 % (11.5-14.5); WHITE BLOOD COUNT 4.7 x10^3/uL (4.0-11.0)
[2020-04-14 20:04] LABS: CALCIUM 8.7 mg/dL (8.5-10.1); CREATININE 0.9 mg/dL (0.7-1.3); GFR 86.7; POTASSIUM 4.6 mmol/L (3.5-5.1)
--- NOTE | 2020-04-14 20:08 | RAD ---
EXAM: CHEST ONE VIEW. HISTORY: Altered mental status. COMPARISON: 03/31/2020. FINDINGS: A frontal view of the chest is obtained. A cardiac monitoring device projects over the left chest. There are no confluent infiltrates. There is no pneumothorax or pleural effusion. The heart is not en larged. IMPRESSION: 1. No confluent infiltrates. Electronically signed by: Connor Lu MD (04/14/2020 8:05 PM) [facility]
[2020-04-14 20:20] LABS: PROTHROMBIN TIME PATIENT 17.3 SEC (11.7-14.0)
--- NOTE | 2020-04-14 20:27 | RAD ---
STUDY: CT head without contrast INDICATION: Stroke protocol. Altered mental status. COMPARISON: 03/31/2020 TECHNIQUE: Axial CT imaging through the head without the use of intravenous contrast. Sagittal and co haroldo reformats were obtained. One or more of the following individualized dose reduction techniques were utilized for this examinat ion: 1. Automated exposure control 2. Adjustment of the mA and/or kV according to patient size 3. Use of iterative reconstruction technique. FINDINGS: No acute intracranial hemorrhage. No newly identified cueva-white matter differentiation loss. There a re again patchy and more localized foci of hypoattenuation within the bihemispheric subcortical white matter. Unchanged focus of low attenuation at the lower margin of the left lentiform nucleus and inf erior aspect of the right occipital lobe. Low-attenuation within the medulla is favored most likely o n account of beam hardening, image 7 series 2. No localized mass effect, midline shift or hydrocephal us. Intracranial calcific atherosclerosis. No acute calvarial abnormality. IMPRESSION: 1. No acute intracranial hemorrhage or CT evidence for acute cortical infarction. 2. Redemonstrated white matter findings most often on account of chronic microvascular ischemic farris ge with some potential chronic cleaning custodian infarcts as well. FOR INTERNAL CODING PURPOSES Critical result: Findings discussed with Dr. Hankins on 04/14/2020 at 8:2 PM. RESULT CODE: (C) Electronically signed by: ARMANDO NAJERA MD (04/14/2020 8:25 PM) [facility]
--- NOTE | 2020-04-14 20:28 | PHYS DOC ---
Past Medical History Past Medical History: Gallstones, Hepatitis, Liver Disease, Other Additional Past Medical Histor: Esophageal Varicies, Cirrohsis, Hep. C, tibial plateau fx, SVT (JESSICA HERNÁNDEZ APRN) Past Surgical History: Appendectomy, Other Additional Past Surgical Histo: Left Knee, L4-L5 surgery, Paracentesis approx. every 3mo (JESSICA HERNÁNDEZ APRN) Smoking Status: Current Some Day Smoker Alcohol Use: Occasionally Drug Use: None (JESSICA HERNÁNDEZ APRN) General Adult EDM: Chief Complaint: ALTERED MENTAL STATUS HPI: HPI: Patient is a 60 year old male is brought to the emergency department via EMS with reports that his son found him lying on his floor covered in feces. The paramedics stated that there were alcohol bottles lying around the house and are under the assumption that the patient is intoxicated. Patient is currently only oriented to self. The paramedics had no other HPI to add. The patient will only answer the word no when answered questions, other than when asked his name he does give his first and last name only. The patient's son was called by ED nursing staff, ED nursing staff reports the patient's son stated that the last time they seen him normal was last Tuesday. Patient stent states that he and the patient have been eating schedules which is a sling term for a mixture of methamphetamines and Ambien. Patient's son states that the patient started smoking crack and drinking alcohol along with eating these "skittles "and started flipping out last . Patient's son states that he left his father alone in the house and did not come back until today when he noticed his father laying on his back covered in feces doing which he called EMS to bring him to the emergency department. (JESSICA HERNÁNDEZ APRN) Review of Systems: Review of Systems: Limited ROS was obtained related to patient's altered mental status and limited report from EMS along with limited phone report taken by ED nursing staff from son. (JESSICA HERNÁNDEZ APRN) Heart Score: Risk Factors: Risk Factors: DM, Current or recent (<one month) smoker, HTN, HLP, family history of CAD, obesity. Risk Scores: Score 0 - 3: 2.5% MACE over next 6 weeks - Discharge Home Score 4 - 6: 20.3% MACE over next 6 weeks - Admit for Clinical Observation Score 7 - 10: 72.7% MACE over next 6 weeks - Early Invasive Strategies (JESSICA HERNÁNDEZ APRN) Allergies: Allergies: Allergies Coded Allergies Type Severity Reaction Last Updated Verified No Known Drug Allergies 02/15/20 No (JESSICA HERNÁNDEZ APRN) Physical Exam: PE: Constitutional: Well developed, well nourished, no acute distress, disheveled appearance. Patient does not follow commands. Patient was covered in dried feces upon arrival. HENT: Normocephalic, atraumatic, bilateral external ears normal, oropharynx moist, no oral exudates, nose normal. [] Eyes: PERRLA, EOMI, conjunctiva normal, no discharge. Patient's gaze to the left, does not follow 6 cardinal movements with light stimuli. Neck: Normal range of motion, no tenderness, supple, no stridor. No pain elicited during neck exam Cardiovascular:Heart rate regular rhythm, no murmur, heart sounds S1-S2 Lungs & Thorax: Bilateral breath sounds clear to auscultation all lung pearson. Abdomen: Bowel sounds normal, soft, no tenderness, no masses, no pulsatile masses. No pain elicited during abdominal exam Skin: Warm, dry, no erythema, no rash. Back: No tenderness, no CVA tenderness. Extremities: No tenderness, no cyanosis, no clubbing, ROM intact, no edema. Neurologic: Alert and oriented to self only, patient withdraws appropriately to painful stimuli, normal deep tendon reflexes, patient does not follow commands. Psychologic: Patient responding no to questions unless asked his name in which he responds appropriately with with normal voice tones. (JESSICA HERNÁNDEZ APRN) Current Patient Data: Labs: Laboratory Tests Test 04/14/20 19:26 White Blood Count 4.7 x10^3/uL (4.0-11.0) Red Blood Count 3.43 x10^6/uL (4.30-5.70) L Hemoglobin 9.9 g/dL (13.0-17.5) L Hematocrit 29.3 % (39.0-53.0) L Mean Corpuscular Volume 86 fL (79-100) Mean Corpuscular Hemoglobin 29 pg (25-35) Mean Corpuscular Hemoglobin Concent 34 g/dL (31-37) Red Cell Distribution Width 16.8 % (11.5-14.5) H Platelet Count 72 x10^3/uL (140-400) L Sodium Level 142 mmol/L (136-145) Potassium Level 4.6 mmol/L (3.5-5.1) Chloride Level 109 mmol/L (98-107) H Carbon Dioxide Level 23 mmol/L (21-32) Anion Gap 10 (6-14) Blood Urea Nitrogen 13 mg/dL (8-26) Creatinine 0.9 mg/dL (0.7-1.3) Estimated GFR (Cockcroft-Gault) 86.7 Glucose Level 99 mg/dL (70-99) Calcium Level 8.7 mg/dL (8.5-10.1) Troponin I Quantitative < 0.017 ng/mL (0.000-0.055) Laboratory Tests 04/14/20 19:26 Laboratory Tests 04/14/20 19:26 Vital Signs: Vital Signs Date Time Temp Pulse Resp B/P (MAP) Pulse Ox O2 Delivery O2 Flow Rate FiO2 04/14/20 19:36 96.7 100 16 143/94 (110) 100 Room Air 96.7 (JESSICA HERNÁNDEZ APRN) EKG: EKG: EKG obtained by ED nursing staff back to 52 shows normal sinus rhythm without ectopy heart rate 91, W[place] interval 0.172, QTc interval 0.472, no STEMI, no ACS, no ischemia noted, EKG interpreted by ED attending Dr. Valencia. (JESSICA HERNÁNDEZ APRN) Radiology/Procedures: Radiology/Procedures: [] (JESSICA HERNÁNDEZ APRN) Course & Med Decision Making: Course & Med Decision Making Pertinent Labs and Imaging studies reviewed. (See chart for details) 60-year-old patient arrived to emergency department via EMS complaint of altered mental status His own feces was called to the residence by patient's son. Patient upon arrival was oriented to self only. Physical examination revealed altered mental status, patient only reports applied to his name and repeated his name otherwise after no to all questions. Patient was gazing to the left and did not follow 6 cardinal eye movements with light stimuli. A altered mental status/stroke work-up was initiated. Pending labs and EKG results. EKG was unremarkable, interpreted by ED attending Dr. Valencia. Patient CT of the head did not show acute process. Patient's urine toxicology report positive for methamphetamines, marijuana, cocaine, alcohol, however blood alcohol was less than 10. Upon reexamination of the patient, the patient was alert and oriented x3, following commands, however patient would get up out of bed and walk around the emergency department in a hospital brief. Patient stated he wanted to go home, called son to see if he would be willing to pick his father up and take him back home. Patient's son states that he does not have the time to come pick his father up tonight he might be able to tomorrow. Discussed with ED attending Dr. Valencia considering sending patient back to his residence with a cab voucher, however the patient continued to not follow commands fully as evidenced by patient would not stay in his room, patient will get up and wander around the emergency department and just a brief, also we cannot obtain an absolute determination of the patient's home address, the patient's son was unreachable. The patient ammonia level is elevated at 57, it was determined that the patient should come in overnight into the hospital as an observation admit altered mental status hepatic encephalopathy, p.o. lactulose was ordered, the patient was admitted to the [facility] floor for observation. Diagnosis altered mental status most likely induced by hepatic encephalopathy as evidenced by increased serum ammonia level. (JESSICA HERNÁNDEZ APRN) Course & Med Decision Making Assumed care from nurse practitioner at the end of his shift. Patient was going to be admitted because he was too altered to get around with a steady gait and too confused to be sent home by himself. Had no family to pick him up. Was given admitted for observation and hepatic encephalopathy as being the cause for his confusion. As patient sobered up became more alert and oriented stating he wants to go home. Patient is able to state his address of walk with a steady gait. Originally concerned that his confusion might be part of hepatic encephalopathy but symptoms resolved prior to treatment with lactulose. (KULDEEP VALENCIA MD) Capriceon Disclaimer: Dwayne Disclaimer: This electronic medical record was generated, in whole or in part, using a voice recognition dictation system. (JESSICA HERNÁNDEZ APRN) Departure Departure Impression: Primary Impression: Altered mental status Qualified Codes: R41.0 - Disorientation, unspecified Additional Impression: Hepatic encephalopathy Disposition: 01 DC HOME SELF CARE/HOMELESS Admitting Physician: DICK (OBS ADMIT TO DR. ROUSSEAU) (JESSICA HERNÁNDEZ APRN) Condition: IMPROVED Referrals: LUCIAL MCCLURE JR, MD (PCP) Patient Instructions: Alcohol and Drug Addiction, Finding Treatment JESSICA HERNÁNDEZ APRN Apr 14, 2020 20:28 KULDEEP VALENCIA MD Apr 15, 2020 03:57
[2020-04-14 20:47] LABS: BARBITURATES NEG (NEG); BENZODIAZEPINES NEG (NEG); CANNABINOIDS POS (NEG); COCAINE POS (NEG); METHADONE NEG (NEG); OPIATES NEG (NEG); PHENCYCLIDINE NEG (NEG)
[2020-04-14 20:48] LABS: AMPHETAMINE/METHAMPHETAMINE POS (NEG)
[2020-04-14 20:48] LABS: ACETAMIN < 2.0 mcg/ml (10-30); ETHANOL < 10 mg/dL (0-10); SALIC < 2.8 mg/dL (2.8-20.0)
[2020-04-14 21:33] LABS: ALBUMIN 2.8 g/dL (3.4-5.0); TOTAL BILIRUBIN 1.6 mg/dL (0.2-1.0); TOTAL PROTEIN 6.8 g/dL (6.4-8.2)
[2020-04-15] MEDS ORDERED: LACTULOSE 20 GM/30 ML SOLUTION. PO PRN (02:00)
[2020-04-15] MEDS ORDERED: ACETAMINOPHEN 325 MG TABLET. PO PRN (02:15)
[2020-04-15] MEDS ORDERED: ONDANSETRON PF 4 MG/2 ML VIAL. IV PRN (02:15)
[2020-04-15 03:32] VITALS: BP 121/58
--- NOTE | 2020-04-15 09:21 | PDOC ---
PROGRESS NOTES Date of Service: DATE: 04/15/20 TIME: 09:20 Chief Complaint Chief Complaint patient left ama, not seen Vitals Vitals Vital Signs Date Time Temp Pulse Resp B/P (MAP) Pulse Ox O2 Delivery O2 Flow Rate FiO2 04/15/20 03:32 87 16 100 04/14/20 19:36 96.7 143/94 (110) Room Air 96.7 Labs LABS Laboratory Tests Test 04/14/20 19:26 04/14/20 19:29 04/14/20 23:05 White Blood Count 4.7 x10^3/uL (4.0-11.0) Red Blood Count 3.43 x10^6/uL (4.30-5.70) Hemoglobin 9.9 g/dL (13.0-17.5) Hematocrit 29.3 % (39.0-53.0) Mean Corpuscular Volume 86 fL (79-100) Mean Corpuscular Hemoglobin 29 pg (25-35) Mean Corpuscular Hemoglobin Concent 34 g/dL (31-37) Red Cell Distribution Width 16.8 % (11.5-14.5) Platelet Count 72 x10^3/uL (140-400) Prothrombin Time 17.3 SEC (11.7-14.0) Prothromb Time International Ratio 1.5 (0.8-1.1) Activated Partial Thromboplast Time 41 SEC (24-38) Sodium Level 142 mmol/L (136-145) Potassium Level 4.6 mmol/L (3.5-5.1) Chloride Level 109 mmol/L (98-107) Carbon Dioxide Level 23 mmol/L (21-32) Anion Gap 10 (6-14) Blood Urea Nitrogen 13 mg/dL (8-26) Creatinine 0.9 mg/dL (0.7-1.3) Estimated GFR (Cockcroft-Gault) 86.7 Glucose Level 99 mg/dL (70-99) Calcium Level 8.7 mg/dL (8.5-10.1) Total Bilirubin 1.6 mg/dL (0.2-1.0) Direct Bilirubin 1.0 mg/dL (0.0-0.2) Aspartate Amino Transf (AST/SGOT) 57 U/L (15-37) Alanine Aminotransferase (ALT/SGPT) 30 U/L (16-63) Alkaline Phosphatase 110 U/L (46-116) Troponin I Quantitative < 0.017 ng/mL (0.000-0.055) Total Protein 6.8 g/dL (6.4-8.2) Albumin 2.8 g/dL (3.4-5.0) Salicylates Level < 2.8 mg/dL (2.8-20.0) Salicylate Last Dose Date Unk Salicylate Last Dose Time Unk Acetaminophen Level < 2.0 mcg/ml (10-30) Acetaminophen Last Dose Date Unk Acetaminophen Last Dose Time Unk Ethyl Alcohol Level < 10 mg/dL (0-10) Urine Opiates Screen Neg (NEG) Urine Methadone Screen Neg (NEG) Urine Barbiturates Neg (NEG) Urine Phencyclidine Screen Neg (NEG) Urine Amphetamine/Methamphetamine Pos (NEG) Urine Benzodiazepines Screen Neg (NEG) Urine Cocaine Screen Pos (NEG) Urine Cannabinoids Screen Pos (NEG) Urine Ethyl Alcohol Pos (NEG) Ammonia 58 mcmol/L (11-34) Assessment and Plan Assessmemt and Plan Problems Medical Problems: (1) Altered mental status Status: Acute (2) Hepatic encephalopathy Status: Acute Comment Review of Relevant I have reviewed the following items clinton (where applicable) has been applied. Labs Laboratory Tests Test 04/14/20 19:26 04/14/20 19:29 04/14/20 23:05 White Blood Count 4.7 x10^3/uL (4.0-11.0) Red Blood Count 3.43 x10^6/uL (4.30-5.70) Hemoglobin 9.9 g/dL (13.0-17.5) Hematocrit 29.3 % (39.0-53.0) Mean Corpuscular Volume 86 fL (79-100) Mean Corpuscular Hemoglobin 29 pg (25-35) Mean Corpuscular Hemoglobin Concent 34 g/dL (31-37) Red Cell Distribution Width 16.8 % (11.5-14.5) Platelet Count 72 x10^3/uL (140-400) Prothrombin Time 17.3 SEC (11.7-14.0) Prothromb Time International Ratio 1.5 (0.8-1.1) Activated Partial Thromboplast Time 41 SEC (24-38) Sodium Level 142 mmol/L (136-145) Potassium Level 4.6 mmol/L (3.5-5.1) Chloride Level 109 mmol/L (98-107) Carbon Dioxide Level 23 mmol/L (21-32) Anion Gap 10 (6-14) Blood Urea Nitrogen 13 mg/dL (8-26) Creatinine 0.9 mg/dL (0.7-1.3) Estimated GFR (Cockcroft-Gault) 86.7 Glucose Level 99 mg/dL (70-99) Calcium Level 8.7 mg/dL (8.5-10.1) Total Bilirubin 1.6 mg/dL (0.2-1.0) Direct Bilirubin 1.0 mg/dL (0.0-0.2) Aspartate Amino Transf (AST/SGOT) 57 U/L (15-37) Alanine Aminotransferase (ALT/SGPT) 30 U/L (16-63) Alkaline Phosphatase 110 U/L (46-116) Troponin I Quantitative < 0.017 ng/mL (0.000-0.055) Total Protein 6.8 g/dL (6.4-8.2) Albumin 2.8 g/dL (3.4-5.0) Salicylates Level < 2.8 mg/dL (2.8-20.0) Salicylate Last Dose Date Unk Salicylate Last Dose Time Unk Acetaminophen Level < 2.0 mcg/ml (10-30) Acetaminophen Last Dose Date Unk Acetaminophen Last Dose Time Unk Ethyl Alcohol Level < 10 mg/dL (0-10) Urine Opiates Screen Neg (NEG) Urine Methadone Screen Neg (NEG) Urine Barbiturates Neg (NEG) Urine Phencyclidine Screen Neg (NEG) Urine Amphetamine/Methamphetamine Pos (NEG) Urine Benzodiazepines Screen Neg (NEG) Urine Cocaine Screen Pos (NEG) Urine Cannabinoids Screen Pos (NEG) Urine Ethyl Alcohol Pos (NEG) Ammonia 58 mcmol/L (11-34) Laboratory Tests Test 04/14/20 19:26 04/14/20 19:29 04/14/20 23:05 White Blood Count 4.7 x10^3/uL (4.0-11.0) Red Blood Count 3.43 x10^6/uL (4.30-5.70) Hemoglobin 9.9 g/dL (13.0-17.5) Hematocrit 29.3 % (39.0-53.0) Mean Corpuscular Volume 86 fL (79-100) Mean Corpuscular Hemoglobin 29 pg (25-35) Mean Corpuscular Hemoglobin Concent 34 g/dL (31-37) Red Cell Distribution Width 16.8 % (11.5-14.5) Platelet Count 72 x10^3/uL (140-400) Prothrombin Time 17.3 SEC (11.7-14.0) Prothromb Time International Ratio 1.5 (0.8-1.1) Activated Partial Thromboplast Time 41 SEC (24-38) Sodium Level 142 mmol/L (136-145) Potassium Level 4.6 mmol/L (3.5-5.1) Chloride Level 109 mmol/L (98-107) Carbon Dioxide Level 23 mmol/L (21-32) Anion Gap 10 (6-14) Blood Urea Nitrogen 13 mg/dL (8-26) Creatinine 0.9 mg/dL (0.7-1.3) Estimated GFR (Cockcroft-Gault) 86.7 Glucose Level 99 mg/dL (70-99) Calcium Level 8.7 mg/dL (8.5-10.1) Total Bilirubin 1.6 mg/dL (0.2-1.0) Direct Bilirubin 1.0 mg/dL (0.0-0.2) Aspartate Amino Transf (AST/SGOT) 57 U/L (15-37) Alanine Aminotransferase (ALT/SGPT) 30 U/L (16-63) Alkaline Phosphatase 110 U/L (46-116) Troponin I Quantitative < 0.017 ng/mL (0.000-0.055) Total Protein 6.8 g/dL (6.4-8.2) Albumin 2.8 g/dL (3.4-5.0) Salicylates Level < 2.8 mg/dL (2.8-20.0) Salicylate Last Dose Date Unk Salicylate Last Dose Time Unk Acetaminophen Level < 2.0 mcg/ml (10-30) Acetaminophen Last Dose Date Unk Acetaminophen Last Dose Time Unk Ethyl Alcohol Level < 10 mg/dL (0-10) Urine Opiates Screen Neg (NEG) Urine Methadone Screen Neg (NEG) Urine Barbiturates Neg (NEG) Urine Phencyclidine Screen Neg (NEG) Urine Amphetamine/Methamphetamine Pos (NEG) Urine Benzodiazepines Screen Neg (NEG) Urine Cocaine Screen Pos (NEG) Urine Cannabinoids Screen Pos (NEG) Urine Ethyl Alcohol Pos (NEG) Ammonia 58 mcmol/L (11-34) Medications Current Medications Lactulose (Lactulose) 20 gm PRN DAILY PRN PO CONSTIPATION; Start 04/15/20 at 02:00; Stop 04/15/20 at 04:12; Status DC Ondansetron HCl (Zofran) 4 mg PRN Q8HRS PRN IV NAUSEA/VOMITING; Start 04/15/20 at 02:15; Stop 04/15/20 at 04:12; Status DC Acetaminophen (Tylenol) 650 mg PRN Q4HRS PRN PO FEVER > 100.3'F; Start 04/15/20 at 02:15; Stop 04/15/20 at 04:12; Status DC Active Scripts Active Ativan (Lorazepam) 0.5 Mg Tablet 0.5 Mg PO TID 7 Days Percocet 5-325 Mg Tablet (Oxycodone/Acetaminophen) 1 Each Tablet 1 Tab PO PRN Q6HRS PRN 6 Days Carafate (Sucralfate) 1 Gm Tablet 1 Gm PO QIDACHS 30 Days Pantoprazole Sodium (Pantoprazole Sodium) 40 Mg Tablet. 40 Mg PO DAILYAC 30 Days Reported Zofran (Ondansetron Hcl) 4 Mg Tablet 1 Tab PO Q6HRS Metoprolol Tartrate 25 Mg Tablet 25 Mg PO BID Protonix (Pantoprazole Sodium) 20 Mg Tablet. 1 Tab PO HS Protonix (Pantoprazole Sodium) 20 Mg Tablet. 1 Tab PO NOON Vitals/I & O Vital Sign - Last 24 Hours 04/14/20 04/14/20 04/14/20 04/15/20 19:36 20:36 22:36 03:32 Temp 96.7 96.7 Pulse 100 92 89 87 Resp 16 16 16 16 B/P (MAP) 143/94 (110) Pulse Ox 100 100 100 100 O2 Delivery Room Air Justicifation of Admission Dx: Justifications for Admission: Justification of Admission Dx: Yes GRICELDA WU MD Apr 15, 2020 09:21
--- NOTE | 2020-04-15 14:33 | EKG ---
[facility] [address] [place] [address] Test Date: 2020-04-14 Test Time: 19:52:12 Pat Name: KAL GUERRERO Department: Room: Gender: M [employer]: : 1960 Requested By: JESSICA HERNÁNDEZ Order Number: [id number] Reading MD: Measurements Intervals [place] Rate: 91 P: 127 MS: 172 QRS: 30 QRSD: 84 T: 32 QT: 382 QTc: 472 Interpretive Statements SINUS RHYTHM NORMAL ECG RI6.02 No previous ECG available for comparison
== END 2020-04-15 04:00 | disposition home or self-care (01) ==
LOC: ER 18:59 → 4 NORTH 04-15 01:40
PROVIDERS: ADMIT Internal Medicine; ATTEND Internal Medicine
DX: I63.521 Cerebral infarction due to unspecified occlusion or stenosis of right anterior cerebral artery (principal); K72.90 Hepatic failure, unspecified without coma; F02.80 Dementia in other diseases classified elsewhere, unspecified severity, without behavioral disturbance, psychotic disturbance, mood disturbance, and anxiety; F14.90 Cocaine use, unspecified, uncomplicated; R41.82 Altered mental status, unspecified; R29.700 NIHSS score 0; F17.200 Nicotine dependence, unspecified, uncomplicated; Z90.49 Acquired absence of other specified parts of digestive tract
CPT/HCPCS: 36415; 70450; 71045; 80048; 80076; 80307; 82140; 84484; 85027; 85610; 85730; 87040; 87077; 87205; 93005; 99285; G0378; G0480; 80329; G0379